=== PATIENT | female | born 1950 | race Caucasian/White ===

== ENCOUNTER → 2017-05-22 11:58 | Outpatient (CLI) | payer MEDICARE, OTHER, SELFPAY ==
--- NOTE | 2017-05-22 12:08 | XR_ITS ---
XR hand RT min 3V HISTORY: Right hand pain ITS.REASON: POLYARTHRALGIA ORDERING PHYSICIAN: Beto Gómez MD PATIENT AGE: 66 years COMPARISON: 01/01/2015 FINDINGS: There are mild osteoarthritic changes involving the DIP joints of the second, third, and fourth digits as well as the PIP of the fourth and fifth digits. These findings are slightly worse at the PIP joint of the fourth finger and the DIP joint of the fourth finger. No fracture or dislocation. No bony erosive process. There are small subcortical cystic changes of the distal aspect of the middle phalanx of the second and third digits. IMPRESSION: Osteoarthritis of the right hand which is slightly progressed at the fourth finger
--- NOTE | 2017-05-22 12:08 | XR_ITS ---
XR hand LT min 3V HISTORY: Pain ITS.REASON: POLYARTHRALGIA ORDERING PHYSICIAN: Beto Gómez MD PATIENT AGE: 66 years COMPARISON: 01/01/2015 FINDINGS: There is osteoarthritis of the DIP joints of the second through fifth finger and the PIP joint of the fourth and fifth fingers. This has progressed at the PIP joint of the fourth finger with subarticular cystic changes and further loss of the joint space. No fracture or dislocation. IMPRESSION: Osteoarthritis of the left hand which is progressed at the fourth digit
== END ==
PROVIDERS: PCP Family Medicine; Visit Provider Family Medicine
DX: M79.641 Pain in right hand (principal); M79.642 Pain in left hand
CPT/HCPCS: 73130

== ENCOUNTER → 2017-11-12 11:12 | Outpatient (CLI) | payer MEDICARE, OTHER, SELFPAY ==
--- NOTE | 2017-11-12 11:21 | XR_ITS ---
XR chest 2V HISTORY: Cough ITS.REASON: COUGH ORDERING PHYSICIAN: Yudi Benjamin PATIENT AGE: 67 years COMPARISON: None FINDINGS: The cardiomediastinal silhouette and pulmonary vascularity are within normal limits. The lungs are clear without infiltrates, suspicious nodules, or pleural effusions. No acute bony abnormalities. There is moderate degenerative change midthoracic spine. IMPRESSION: Negative chest, no acute finding
== END ==
PROVIDERS: PCP Family Medicine; Visit Provider Nurse Practitioner
DX: R05 Cough (principal)
CPT/HCPCS: 71046

== ENCOUNTER → 2017-12-14 13:56 | Outpatient (CLI) | payer MEDICARE, OTHER, SELFPAY ==
--- NOTE | 2017-12-14 14:03 | XR_ITS ---
XR ribs LT min 3V w CXR1V HISTORY: Left lateral chest pain following injury ITS.REASON: CHEST PAIN ORDERING PHYSICIAN: Beto Gómez MD PATIENT AGE: 67 years Comparison: None FINDINGS: A there is minimal cortical irregularity involving the anterolateral aspect of the left seventh rib consistent with nondisplaced fracture. Similar finding is present involving the left fourth rib laterally. No displaced rib fractures are evident. IMPRESSION: No displaced fracture left fourth and seventh ribs
--- NOTE | 2017-12-14 14:03 | XR_ITS ---
XR chest 2V HISTORY: ITS.REASON: CHEST PAIN following injury ORDERING PHYSICIAN: Beto Gómez MD PATIENT AGE: 67 years COMPARISON: 11/12/2017 FINDINGS: The cardiomediastinal silhouette and pulmonary vascularity are within normal limits. There is calcified granuloma in the left perihilar region. No evidence of pneumothorax. Lungs are clear. There is a nondisplaced left fourth and seventh rib fracture noted on the rib detail films. IMPRESSION: No acute cardiac or pulmonary findings. Nondisplaced left fourth and seventh rib fractures
== END ==
PROVIDERS: PCP Family Medicine; Visit Provider Family Medicine
DX: R07.9 Chest pain, unspecified (principal)
CPT/HCPCS: 71046; 71101

== ENCOUNTER → 2018-01-23 10:46 | Outpatient (CLI) | payer MEDICARE, OTHER, SELFPAY ==
--- NOTE | 2018-01-23 10:48 | MM_ITS ---
MM Dig screening mamm BI w/CAD ORDERING PHYSICIAN : Rupesh Reyes MD PATIENT AGE: 67 years GENDER: Female COMPARISON: November 2016, October 20152014 INDICATION: ITS.REASON: Routine Screening Mammogram TECHNIQUE: Standard CC and MLO images were obtained. R2 CAD reviewed. FINDINGS: Low-density breast bilaterally with moderate generalized fatty replacement. No dominant mass nor suspicious findings. No architectural distortion. RIGHT BREAST:No new areas of concern Scattered small lipoid cysts on right with spherical calcification LEFT BREAST:. Small area of calcification at the superior and more inferior breast and not changed significantly since last year. Follow-up in one year would be adequate, but should be emphasized and encouraged IMPRESSION: ...... No new areas of significant concern . Left breast: 2 or 3 small Small groupings of benign-appearing calcifications. Overall fairly stable, since last year. Can be followed. . Follow-up mammogram in one year should be emphasized and encouraged. . BI-RADS Category: 2 Benign Finding(s) RECOMMENDED FOLLOW-UP: 1YR 1 YEAR FOLLOW-UP (A letter has been sent to the patient regarding results of the study.)
== END ==
PROVIDERS: PCP Family Medicine; Visit Provider Nurse Practitioner Obstetrics & Gynecology
DX: Z12.31 Encounter for screening mammogram for malignant neoplasm of breast (principal)
CPT/HCPCS: 77067

== ENCOUNTER → 2018-10-17 07:36 | Outpatient (CLI) | payer MEDICARE, OTHER, SELFPAY ==
--- NOTE | 2018-10-17 07:39 | NM_ITS ---
History:SOB, Fatigue, HTN, DM, Family history, CAD, Hx of CT Procedure: Patient received a 0.4 mg of intravenous Lexiscan, resting heart rate 71 bpm, resting blood pressure 150/81, with Lexiscan maximum heart rate achieve was 103 bpm which is (85 % of the maximum predicted heart rate and blood pressure was 153/82. WIth Lexiscan patient denied any complained of chest pain. Electrocardiogram: Resting electrocardiogram showed sinus rhythm, with Lexiscan there is less than 1.5mm ST segment depression noted from the baseline EKG. The EKG portion of the Lexiscan Myoview is nondiagnostic. Cardias Stress and Resting SPECT images: Cardias Stress and Resting SPECT images were obtained using technetium 99m Myoview 31.1 mCi stress and 10.55 mCi at rest. Gated SPECT further analysis of segmental wall motion and calculation of ejection fraction also done. Cardiac stress and resting SPECT show uniform myocardial activity without segmental perfusion abnormality,, the computer derived ejection fraction is 58% with no regional wall motion abnormality, right ventricle is normal size and contractility. Conclusion: 1. The EKG portion of the Lexiscan Myoview is nondiagnostic. 2. No scintigraphic evidence of reversible ischemia seen, computer derived ejection fraction is 58% with no regional wall motion abnormality. 3. Normal Lexiscan Myoview study.
--- NOTE | 2018-10-17 08:09 | HMH.ITSHM ---
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 []PRAVASTATIN ARIPIPRAZIDE DULOXETINE GLIMEPIRIDE LISINOPRIL ATORVASTATIN METFORMIN NABUMETONE FOLIC ACID METHOTREXATE ASA NEXIUM BLACK COHOSH VITAMIN D
== END ==
PROVIDERS: PCP Family Medicine; Visit Provider Family Medicine
DX: I25.10 Atherosclerotic heart disease of native coronary artery without angina pectoris (principal); R06.09 Other forms of dyspnea; R53.83 Other fatigue
CPT/HCPCS: 78452; 93017; A9502; J2785

== ENCOUNTER → 2019-01-09 13:25 | Outpatient (CLI) | payer MEDICARE, OTHER, SELFPAY | PROVIDERS: PCP Family Medicine; Visit Provider Family Medicine | DX: G47.33 Obstructive sleep apnea (adult) (pediatric) (principal); I10 Essential (primary) hypertension; R40.0 Somnolence; R06.83 Snoring; E66.9 Obesity, unspecified | CPT/HCPCS: G0399 ==

== ENCOUNTER → 2019-01-21 12:47 | Outpatient (CLI) | payer MEDICARE, OTHER, SELFPAY ==
--- NOTE | 2019-01-21 12:48 | MR_ITS ---
PROCEDURE: MR SHOULDER RT WO CON CLINICAL INDICATION: fell dislocation of rt shoulder Right shoulder pain, recent dislocation. Unable to raise right arm. COMPARISON: XR SHOULDER RT MIN 2V from 01/12/2019 XR SHOULDER RT MIN 2V from 01/12/2019 TECHNIQUE: Routine multiplanar multi echo sequences are performed without gadolinium enhancement. FINDINGS: There is complete tear of the supraspinatus tendon with retraction of the musculotendinous fibers. There is tendinopathy/tendinosis of the infraspinatus tendon with thickening and increased T2 signal distally there is also some mild thickening of the subscapularis tendon with partial tear along the deep aspect of the subscapularis tendon distally teres minor tendon appears intact. There is a moderate-sized shoulder joint effusion. There is acromioclavicular arthropathy with subacromial stenosis. There is mild internal rotation of the humeral head. The bicipital tendon to the long head of the biceps appears displaced medially and could actually be torn at the bicipital groove. No obvious labral tear. A subchondral cyst is present in the posterior glenoid region. There is an area of decreased T1 and increased T2 signal involving the humeral head anteriorly measuring 9 x 5 mm the and may represent a subchondral cyst. There is cortical regularity involving the anterolateral aspect of the humeral head with some increase in T2 signal consistent with a Hill-Sachs lesion. There is a moderate amount of fluid in the right axilla extending both anteriorly and posterior to the subscapularis muscle superiorly. There are osteoarthritic changes of the glenohumeral joint and acromioclavicular joint IMPRESSION: 1. Complete tear of the supraspinatus tendon with retraction of the musculotendinous fibers 2. Tendinopathy/tendinosis of the infraspinatus and subscapularis tendon. Partial tear of the deep aspect of the subscapularis tendon 3. Medial displacement of the long head of the biceps tendon with possible tear of the tendon at the bicipital groove 4. Hill-Sachs deformity of the humeral head 5. Osteoarthritic changes of the acromioclavicular joint and glenohumeral joint with shoulder joint effusion and moderate amount of fluid in the axilla Dictated by: Alessio Godinez MD 01/23/2019 07:02 Electronically signed by Alessio Godinez MD in [place] 01/23/2019 07:02
== END ==
PROVIDERS: PCP Family Medicine; Visit Provider Orthopaedic Surgery
DX: S43.004A Unspecified dislocation of right shoulder joint, initial encounter (principal)
CPT/HCPCS: 73221

== ENCOUNTER → 2019-02-06 08:24 | Outpatient (CLI) | payer MEDICARE, OTHER, SELFPAY ==
--- NOTE | 2019-02-06 08:27 | MM_ITS ---
PROCEDURE: MM DIG SCREENING MAMM BI W/CAD Patient Age:68Y CLINICAL INDICATION: SCREENING 68-year-old. No hormones, no new complaints. Noncontributory family history. COMPARISON: [facility] DIG MAMM-SCREEN CHRISTOPHE from 10/27/2014 [facility] DIG MAMM-SCREEN CHRISTOPHE from 11/23/2015 [facility] DIG MAMM-SCREEN CHRISTOPHE W/CAD from 11/30/2016 [facility] MM Dig screening mamm BI w/CAD from 01/23/2018 TECHNIQUE: Standard CC and MLO images were obtained. R2 CAD reviewed. Additional axillary CC view left breast included FINDINGS: Minimal residual fibroglandular elements in both breast with no dominant or suspicious mass but no suspicious calcification. There are some benign cyst spherical calcifications right breast again noted similar to previous study.. Small stable intramammary node lateral right breast again noted IMPRESSION: Stable bilateral mammogram. No new areas of significant concern. Bilateral follow-up 1 year recommended. The BI-RAD Category: 2 Benign Finding(s) FOLLOW-UP: 1YR 1 Year Follow-up (A letter has been sent to the patient regarding results of the study.) Dictated by: Christophe Castro MD 02/06/2019 20:30 Electronically signed by Christophe Castro MD in [place] 02/06/2019 20:30
== END ==
PROVIDERS: PCP Family Medicine; Visit Provider Family Medicine
DX: Z12.31 Encounter for screening mammogram for malignant neoplasm of breast (principal)
CPT/HCPCS: 77067

== ENCOUNTER → 2019-03-03 11:30 | Outpatient (CLI) | payer MEDICARE, OTHER, SELFPAY | PROVIDERS: Visit Provider Specialist | DX: G47.19 Other hypersomnia (principal); G47.33 Obstructive sleep apnea (adult) (pediatric); R53.83 Other fatigue | CPT/HCPCS: 94762 ==

== ENCOUNTER 2019-03-28 10:00 | Outpatient (RCR) | payer MEDICARE, OTHER, SELFPAY ==
--- NOTE | 2019-02-28 08:43 | HMH.OTOPEV ---
OT Inpatient Evaluation Rehab OT Outpatient Eval Start: 02/28/19 08:06 Freq: Status: Active Protocol: Document 02/28/19 08:07 TFRY (Rec: 02/28/19 08:43 TFRY [id number]) Electronically Signed By Carolina Leos OT 02/28/19 08:07 Outpatient Therapy Subjective History Subjective History This is a 68 year old right handed female referred to occupational therapy as patient is status point a right shoulder dislocation and rotator cuff tear. Patient reports that she fell in December and dislocated her shoulder. Chief Complaint Pain,Weakness Symptom Type Ache Symptoms Relieved By Rest/Positioning Symptoms Aggravated By Physical Activity,Lifting Prior Functional Limitations None Current Functional Limitations Reaching,Lifting,Housework, Sleeping Symptom Description Activity Dependent Level of pain today (0-10) 0 Pain scale - at its best (0-10) 0 Pain scale - at its worst (0-10) 3 Shoulder/Elbow Eval Shoulder Objective Measurements Palpation Tenderness tenderness over the bicipital tendon right shoulder exam standard Shoulder Palpation Findings Tenderness Shoulder ROM Right Shoulder ROM Limitations Pain Shoulder Abduction Active Range of 70 Motion (degrees) Shoulder Abduction Passive Range of 130 Motion (degrees) Shoulder Flexion Active Range of Motion 100 (degrees) Query Text: Shoulder Flexion Passive Range of Motion 125 (degrees) Shoulder External Rotation Active Range 55 of Motion (degrees) Shoulder External Rotation Passive Range 70 of Motion (degrees) Shoulder Internal Rotation Active Range 20 of Motion (degrees) Shoulder Internal Rotation Passive Range 40 of Motion (degrees) pain with active ROM shoulder exam right standard pain with passive ROM shoulder exam right standard decreased ROM shoulder exam standard right Shoulder MMT Shoulder Abduction Strength Grade 2+ Poor+ Shoulder Extension Strength Grade 2+ Poor+ Shoulder Flexion Strength Grade 2+ Poor+ Shoulder Horizontal Abduction Strength 2+ Poor+ Grade Shoulder External Rotation Strength 2+ Poor+ Grade Shoulder Internal Rotation Strength 2+ Poor+ Grade Shoulder Strength Patient Testing Sitting Position Shoulder Special Tests
== END 2019-03-28 10:05 | disposition home or self-care (01) ==
LOC: OT 10:00
PROVIDERS: PCP Family Medicine; Visit Provider Orthopaedic Surgery
DX: M75.101 Unspecified rotator cuff tear or rupture of right shoulder, not specified as traumatic (principal)
CPT/HCPCS: 97014; 97033; 97110; 97165; G0283

== ENCOUNTER → 2019-04-14 10:09 | Outpatient (CLI) | payer MEDICARE, OTHER, SELFPAY ==
[2019-04-14 10:53] LABS: Basophils # 0.1 K/mm3 (0-0.2); Eosinophils # 0.2 K/mm3 (0.0-0.4); Eosinophils % 2.5 % (0.1-12.0); Hematocrit 43.7 % (37.0-47.0); Hemoglobin 13.5 g/dL (12.2-16.2); Lymphocytes # 1.4 K/mm3 (0.7-4.5); Lymphocytes % 16.2 % (10-50); Mean Corpuscular HGB Conc 30.9 g/dL (31.8-35.4); Mean Corpuscular Hemoglobin 25.5 pg (27.0-31.2); Mean Corpuscular Volume 82.5 fl (81-99); Mean Platelet Volume 7.6 fl (7.4-10.4); Monocytes # 0.4 K/mm3 (0.1-1.0); Monocytes % 4.5 % (1.7-9.3); Neutrophils # 6.6 K/mm3 (1.8-7.8); Neutrophils % 75.8 % (37.0-80.0); Platelet Count 338 K/mm3 (142-424); Red Cell Distribution Width 14.7 % (11.5-17.5); White Blood Count 8.7 K/mm3 (4.8-10.8)
[2019-04-14 12:12] LABS: Alanine Aminotransferase 11 U/L (12-78); Albumin Level 3.3 gm/dL (3.4-5.0); Alkaline Phosphatase 157 U/L (46-116); Anion Gap 11.1 mEq/L (5-15); Aspartate Amino Transferase 11 U/L (15-37); Bilirubin,Total 0.4 mg/dL (0.2-1.0); Blood Urea Nitrogen 10 mg/dL (7-18); Calcium 9.4 mg/dL (8.5-10.1); Carbon Dioxide 30 mmol/L (21.0-32.0); Chloride 101 mmol/L (98-107); Creatinine,Serum 0.72 mg/dL (0.55-1.02); Estimated Glomerular Filt Rate 81 ml/min (>60); GFR (African American) 98 ML/MIN (>60); Globulin 3.4 gm/dl (1.3-3.2); Glucose 136 mg/dL (74-106); Potassium 4.1 mmoL/L (3.5-5.1); Sodium 138 mmol/L (136-145); Thyroid Stimulating Hormone 2.33 uIU/ml (0.358-3.740); Total Protein,Serum 6.7 gm/dL (6.4-8.2)
[2019-04-16 18:16] LABS: Vitamin B12 1088 pg/mL (232-1245)
== END ==
PROVIDERS: Visit Provider Specialist
DX: G47.19 Other hypersomnia (principal); G47.33 Obstructive sleep apnea (adult) (pediatric); R53.83 Other fatigue
CPT/HCPCS: 36415; 80053; 82607; 84443; 85025

== ENCOUNTER → 2019-12-25 14:56 | Outpatient (CLI) | payer MEDICARE, OTHER, SELFPAY ==
[2019-12-25 21:05] LABS: Coronavirus 19 IgG Antibody Negative (Negative); Coronavirus 19 IgM Antibody Negative (Negative)
== END ==
PROVIDERS: Visit Provider Internal Medicine Gastroenterology
DX: Z01.89 Encounter for other specified special examinations (principal); Z12.11 Encounter for screening for malignant neoplasm of colon
CPT/HCPCS: 36415; 86328

== ENCOUNTER 2019-12-26 07:21 | Day surgery (SDC) | payer MEDICARE, OTHER, SELFPAY ==
[2019-12-23 10:08] VITALS: BMI 37.1
[2019-12-26 07:39] VITALS: BP 209/116; PULSE 86; RESP 18; TEMP 36.4; O2SAT 95
--- NOTE | 2019-12-26 08:40 | HMH.ANESCL ---
[facility] Anesthesia Checklist - Patient Identification Patient Identification: Arm Band, Verbal (Name & ) - Structural Data Admitted From: Home Planned Operative Procedure/s: Colonoscopy Consent for Planned Operative Procedure(s) Verified: Yes Verified Documents: Surgical Consent, History and Physical - NPO Status Verified Time NPO: 00:00 - Chart Verification Results Verified: None - Additional verifications Anesthesia Reactions: No - Airway Assessment C-Spine Mobility Assessed: Yes TMJ Mobility Assessed: Yes Dentition: Dentures-good fit (Upper) - Neurological Assessment Level of Consciousness: Awake, Alert, Appropriate, Follows Commands Hx Seizures: No Numbness or tingling in extremities: No - Anesthesia Plan Anesthesia Risk discussed: Yes Anesthesia Plan: Verified ASA Class: III Anesthesia Type: MAC [facility] History I have reviewed the patient's past medical history: Yes Medical History: Reports:: Anxiety, Depression, Diabetes Mellitus Type 2, Hyperlipidemia, Hypertension Denies:: Cancer, MRSA, Seizures *Have you ever received a pneumonia vaccine?: Yes *Have you received a flu vaccine this season?: Yes Other Medical History: Reports: Arthritis Comment:: Obesity Anesthesia experience/problems:: No prior complications Other Surgeries: Yes: Cholecystectomy, Other Amputation: No - *Social History Last grade of school completed: High school graduate Smoking Status: Former smoker Alcohol Intake: never Alcohol Intake Frequency:: other Substance Use Type: denies use *Occupational Status:: retired Housing: house Household Members: spouse *Travel in the last 8 weeks: None - Psychiatric History Pschychiatric History:: Reports:: Depression Family Hx:: Diabetes, Coronary Artery Disease, Hypertension, Stroke
--- NOTE | 2019-12-26 08:41 | P.PCN_ITS ---
[facility] Procedure Note Procedure Note:: Colonoscopy Procedure Report: Colonoscopy with cold snare polypectomy Endoscopist: Alexis Feliciano II, MD Referring physician: Beto Gómez MD Date of Procedure: December 26, 2019 Equipment: Olympus 180 variable stiffness pediatric colonoscope Sedation: MAC sedation Indication: Mrs. Feliciano is a 69-year-old female who is here for initial screening colonoscopy. She reports no abdominal pain, weight loss, change in her bowel habits or rectal bleeding. She reports no family history of colon cancer. Procedure: Prior to the procedure, a history and physical exam was performed, and patient's medications and allergies were reviewed. The risks, benefits and alternatives of the sedation and procedure were discussed with the patient. All questions were answered and informed consent was obtained. The patient was brought to the procedure room. Patient identification and proposed procedure were verified by the physician and the nurse. The patient was placed in a left lateral decubitus position and the scope was passed under direct vision. Throughout the procedure, the patient's blood pressure, pulse, and oxygen saturations were monitored continuously. The colonoscopy was accomplished without difficulty. The patient tolerated the procedure well. Findings: On digital rectal examination there was normal rectal tone. There were no external hemorrhoids. The colonoscope was introduced through the anal canal to the rectum and advanced to the cecum. The ileocecal valve and appendiceal julio cesar fice were identified. The scope was advanced a short distance into the ileum which appeared grossly normal. The scope was then withdrawn into the colon. There were 4 colon polyps (cecum x1 (4 mm) and transverse x3 (3, 4 and 5 mm)) which were all removed via cold snare polypectomy. The remainder of the cecum, ascending, transverse, descending, sigmoid and rectum were grossly normal. There were no other mucosal abnormalities identified. Upon retroflexion within the rectum there were grade 1-2 internal hemorrhoids.The preparation was excellent throughout with Thornton Preparation Score of 9. The cecal time was 13 minutes. Impression: 1. Diminutive colonic polyps x4 2. Grade 1-2 internal hemorrhoids Plan: I will follow up the polyp pathology and recommend repeat colonoscopy again in 5 years based upon the polyp histology. I would encourage bulk fiber supplementation on a long-term daily maintenance basis.
[2019-12-26 08:46] VITALS: O2SAT 97
[2019-12-26 09:03] VITALS: BP 133/61; PULSE 82; RESP 18; TEMP 36.4; O2SAT 91
[2019-12-26 09:13] VITALS: BP 109/75; PULSE 85; RESP 18; O2SAT 96
[2019-12-26 09:23] VITALS: BP 145/77; PULSE 87; RESP 18; O2SAT 95
[2019-12-26 09:46] VITALS: BP 157/93; PULSE 74; RESP 18; O2SAT 98
[2019-12-27 06:03] LABS: POC Glucose,Bedside 144 (70-110)
== END 2019-12-26 09:46 | disposition home or self-care (01) ==
PROVIDERS: PCP Family Medicine; Visit Provider Internal Medicine Gastroenterology
PROC: 0DJD8ZZ Inspection of Lower Intestinal Tract, Via Natural or Artificial Opening Endoscopic (ICD-10-PCS; CPT 45378; principal; 2019-12-26 08:30)
DX: Z12.11 Encounter for screening for malignant neoplasm of colon (principal); K63.5 Polyp of colon; K64.0 First degree hemorrhoids; E11.9 Type 2 diabetes mellitus without complications; I10 Essential (primary) hypertension; E78.5 Hyperlipidemia, unspecified; M19.90 Unspecified osteoarthritis, unspecified site; F41.9 Anxiety disorder, unspecified; F32.9 Major depressive disorder, single episode, unspecified; Z87.891 Personal history of nicotine dependence; Z88.2 Allergy status to sulfonamides; Z79.899 Other long term (current) drug therapy
CPT/HCPCS: 45385; 82962; 88305

== ENCOUNTER → 2020-02-25 08:55 | Outpatient (CLI) | payer MEDICARE, OTHER, SELFPAY ==
--- NOTE | 2020-02-25 08:55 | MM_ITS ---
PROCEDURE: MM DIG SCREENING MAMM BI W/CAD Referring Doctor: Rupesh Reyes Patient Age:69Y CLINICAL INDICATION: screening routine. No hormones. No new complaints. Noncontributory family history COMPARISON: MG [facility] DIG MAMM-SCREEN CHRISTOPHE W/CAD from 11/30/2016 [facility] MM Dig screening mamm BI w/CAD from 01/23/2018 MG MM DIG SCREENING MAMM BI W/CAD from 02/06/2019 TECHNIQUE: Standard CC and MLO images were obtained. R2 CAD reviewed. Bilateral digital breast tomosynthesis included. FINDINGS: [id number] residual fibroglandular elements most notable towards towards anterior breast bilaterally No new dominant or suspicious mass. The the Right breast: No areas of concern. Stable areas of mild asymmetry. No significant mass lesions. Stable a few benign spherical calcifications Left breast: No significant new findings . Small grouping of round benign-appearing fairly punctate calcifications again seen a towards the medial left breast centrally.. Progression since of these have been present since 2017 with significant change. Can be followed safely . IMPRESSION: Stable bilateral mammogram with no new areas of significant concern BI-RAD Category: 1 Negative FOLLOW-UP: 1YR 1 Year Follow-up (A letter has been sent to the patient regarding results of the study.) Dictated by: Christophe Castro MD 03/01/2020 13:30 Christophe Castro MD in [place] 03/01/2020 13:30
== END ==
PROVIDERS: PCP Family Medicine; Visit Provider Nurse Practitioner Obstetrics & Gynecology
DX: Z12.31 Encounter for screening mammogram for malignant neoplasm of breast (principal)
CPT/HCPCS: 77063; 77067

== ENCOUNTER → 2020-10-15 12:37 | Outpatient (CLI) | payer MEDICARE, OTHER, SELFPAY ==
--- NOTE | 2020-10-15 12:37 | US_ITS ---
PROCEDURE: US BREAST RT COMPLETE CLINICAL INDICATION: Lump in Rt Breast COMPARISON: No exams were available for comparison FINDINGS: Focal 0.3 centimeter well-defined lesion with the wall calcification is noted, corresponds to the or oil cyst noted on the right and diagnostic mammogram. Minor adjacent echogenicity is noted. No other focal suspicious masses are noted. Lymph nodes noted in the axilla measuring up to 2.5 centimeters. IMPRESSION: Probably benign finding. Please see diagnostic mammogram report of the same date for further recommendations. Dictated by: Denise Martinez 10/15/2020 14:06 Denise Martinez in [place] 10/15/2020 14:06
--- NOTE | 2020-10-15 12:37 | MM_ITS ---
PROCEDURE: MM DIG MAMM DX UNILAT RT CAD Digital Breast Tomosynthesis Included CLINICAL INDICATION: Lump in Rt Breast COMPARISON: No exams were available for comparison TECHNIQUE: Standard CC and MLO images and 3D Tomosynthesis was obtained. R2 CAD reviewed. FINDINGS: The breast is composed of scattered fibroglandular tissue. At the site of marker placement there are few oil cysts noted measuring up to 5 millimeters. Rim calcification is noted. Corresponding ultrasound confirms the presence of an oil cyst with the wall calcification. There is minor adjacent heterogeneous echogenicity is noted. No dominant masses, suspicious findings or architectural distortion is noted. IMPRESSION: Findings are consistent with an oil cyst. Minor adjacent heterogeneous echogenicity on the corresponding ultrasound, may represent minor inflammation. BI-RAD Category: 3, probably benign finding. FOLLOW-UP: Follow-up ultrasound in 6 months recommended. (A letter has been sent to the patient regarding results of the study.) Dictated by: Denise Martinez 10/15/2020 14:05 Denise Martinez in [place] 10/15/2020 14:05
== END ==
PROVIDERS: PCP Family Medicine; Visit Provider Nurse Practitioner Obstetrics & Gynecology
DX: N64.59 Other signs and symptoms in breast (principal)
CPT/HCPCS: 76641; 77061; 77065; G0279

== ENCOUNTER → 2021-01-04 10:53 | Outpatient (POV) | payer MEDICARE, OTHER, SELFPAY | PROVIDERS: Visit Provider Dermatology | DX: Z00.00 Encounter for general adult medical examination without abnormal findings (principal) ==

== ENCOUNTER 2021-02-21 14:59 | Emergency (ER) | payer MEDICARE, OTHER, SELFPAY ==
[2021-02-21 15:30] VITALS: BP 170/100; PULSE 91; RESP 16; TEMP 36.8; O2SAT 95; BMI 37.1
[2021-02-21 16:11] VITALS: BP 171/105
--- NOTE | 2021-02-21 16:17 | HMH.EDGENADL ---
ED Disposition Clinical Impression: Hypertension Qualifiers: Hypertension type: primary hypertension Qualified Code(s): I10 - Essential (primary) hypertension Disposition: Home, Self-Care Condition on Discharge: Good Additional Instructions: Take to lisinopril until you can be reevaluated by your PCP. Return the emerge department chest pain, shortness of breath, headache or visual change. Referrals: Beto Gómez MD [Primary Care Provider] - (Call for an appointment) Time of Disposition: 16:21 - Critical Care Critical Care Time: No Attestation: On 02/21/21, the high probability of a clinically significant, sudden or life threatening deterioration of the following system(s) required my full and direct attention, intervention and personal management. The time I documented below is in addition to time spent performing reported procedures but includes the following listed in this critical care notation. Medical Decision Making - Medical Records Medical records reviewed: Yes: I reviewed the patient's medical records. - Eliot Inquiry Pt receiving controlled substance: No Vital Signs: 02/21/21 15:30 Temperature 98.3 F Temperature Source Oral Pulse Rate [Left Radial] 91 H Respiratory Rate 16 Blood Pressure [Right Arm] 170/100 H Blood Pressure Mean [Right Arm] 123 Blood Pressure Source [Right Arm] Manual Cuff/ Auscultation 02 Sat by Pulse Oximetry 95 Orders (Tests/Meds): ED MEDICATIONS Discontinued Medications Generic Name Dose Route Start Last Admin Trade Name Parris PRN Reason Stop Dose Admin Clonidine HCl 0.1 mg 02/21/21 16:13 Clonidine 0.1mg Tablet PO 02/21/21 16:14 ONCE ONE Medical Decision Narrative: 70yo F presents emerged part from ENT clinic secondary to hypertension. Patient is asymptomatic and has no concerns at this time. Her blood pressure is 170/105. Technically, this is below a sepsis Borges for hypertensive urgency and does not require treatment. I did provide clonidine 0.1 mg p.o. Encourage the patient to double her lisinopril until she can be seen by her PCP for further direction. Patient knows to return emergency department shortness of breath, chest pain, headache or visual change. General Adult HPI - General Chief complaint: Recheck/Abnormal Lab/Rx Stated complaint: Bp high Dr. Cormier sent over Time Seen by Provider: 02/21/21 16:00 Mode of Arrival: Ambulatory Limitations: No Limitations Description of Symptoms (Recalled from ER Triage Doc. by RN): pt sent to ed from ent for high bp. pt states she has no symptoms and feels at her baseline. pt states she has a hx of high bp and takes medication daily. - History of Present Illness HPI narrative: 70yo F sent to the emergency department from the ENT office secondary to hypertension. Patient is asymptomatic of her high blood pressure. She denies any chest pain, shortness of breath. She reports taking her medication as directed, believes is lisinopril. She reports been on same medication for several years now. - Related Data Home Medications Medication Instructions Recorded Confirmed aspirin 81 mg tablet,delayed 81 mg PO DAILY 01/17/19 02/21/21 release cholecalciferol (vitamin D3) 100 4,000 unit PO DAILY 01/17/19 02/21/21 mcg (4,000 unit) capsule duloxetine 60 mg capsule,delayed 60 mg PO DAILY 01/17/19 02/21/21 release esomeprazole magnesium 20 mg 20 mg PO DAILY 01/17/19 02/21/21 capsule,delayed release lisinopril 20 mg tablet 20 mg PO DAILY 01/17/19 02/21/21 nabumetone 750 mg tablet 750 mg PO BID 01/17/19 02/21/21 metformin 500 mg tablet,extended 1 mg PO DAILY tab 01/21/19 02/21/21 release 24 hr terbinafine HCl 250 mg tablet 250 mg PO DAILY tab 01/21/19 02/21/21 aripiprazole 5 mg tablet 5 mg PO DAILY tab 05/03/20 02/21/21 atorvastatin 40 mg tablet 40 mg PO HS tab 05/03/20 02/21/21 Previous Rx's Medication Instructions Recorded ciprofloxacin 0.3 %-dexamethasone 2 drp [facility]
[2021-02-21 16:30] VITALS: BP 181/106
[2021-02-21 16:45] VITALS: BP 181/106; PULSE 91; RESP 18; TEMP 36.8; O2SAT 95
== END 2021-02-21 16:50 | disposition home or self-care (01) ==
PROVIDERS: Emergency Provider Family Medicine; PCP Family Medicine
DX: I16.0 Hypertensive urgency (principal); E11.9 Type 2 diabetes mellitus without complications; E78.5 Hyperlipidemia, unspecified; Z87.891 Personal history of nicotine dependence
CPT/HCPCS: 99281

== ENCOUNTER → 2021-03-04 09:52 | Outpatient (CLI) | payer MEDICARE, OTHER, SELFPAY ==
--- NOTE | 2021-03-04 09:52 | MM_ITS ---
PROCEDURE INFORMATION: Exam: MG Bilateral Screening 3D Mammography Exam date and time: 03/04/2021 9:52 AM Age: 70 years old Clinical indication: Encounter for screening mammogram for malignant neoplasm of breast; Additional info: Screening xmg TECHNIQUE: Imaging protocol: Bilateral screening tomosynthesis and 2D mammography including computer-aided detection (CAD) when performed. COMPARISON: 1. MG MM DIG MAMM DX UNILAT RT CAD 10/15/2020 1:00 PM 2. MG MM DIG SCREENING MAMM BI W/CAD 02/25/2020 9:05 AM 3. MG MM DIG SCREENING MAMM BI W/CAD 02/06/2019 8:40 AM FINDINGS: MAMMOGRAPHY: Breast composition: There are scattered areas of fibroglandular density. Mass: No suspicious masses. Architectural distortion: No suspicious distortion. Calcifications: No suspicious calcifications. Asymmetric density: None. Skin thickening: None. Axillary adenopathy: None. IMPRESSION: No mammographic evidence of malignancy. Annual screening is recommended unless otherwise clinically indicated. ASSESSMENT: BI-RADS Category 1: Negative
== END ==
PROVIDERS: PCP Family Medicine; Visit Provider Nurse Practitioner Obstetrics & Gynecology
DX: Z12.31 Encounter for screening mammogram for malignant neoplasm of breast (principal)
CPT/HCPCS: 77063; 77067

== ENCOUNTER → 2021-03-11 15:28 | Outpatient (CLI) | payer MEDICARE, OTHER, SELFPAY ==
--- NOTE | 2021-03-11 15:39 | XR_ITS ---
PROCEDURE: XR CHEST 2V CLINICAL HISTORY: SOB,ESSENTIAL HYPERTENSION COMPARISON: CR CXR2V XR chest 2V from 12/14/2017 CR [id number] XR ribs LT min 3V w CXR1V from 12/14/2017 CR XR CHEST PORTABLE from 01/12/2019 FINDINGS: The cardiomediastinal silhouette and pulmonary vascularity are within normal limits. Pleural thickening is noted along the left lateral hemithorax with blunting of the left CP angle. This this could represent loculated effusion or underlying pleural reaction/thickening. There is some minimal increased density adjacent to this at region suggesting atelectasis or infiltrate. Chest CT may provide further evaluation. There are mild degenerative changes in the thoracic spine. IMPRESSION: Left-sided pleural thickening versus loculated effusion with underlying atelectasis or infiltrate. This has developed since the previous exam. Chest CT may provide more thorough evaluation. Dictated by: Alessio Godinez MD 03/11/2021 16:20 Alessio Godinez MD in [place] 03/11/2021 16:20
--- NOTE | 2021-03-11 16:02 | ECG_ITS ---
APPROVED REPORT Exam: Resting ECG HR:72 bpm ECG Measurements Heart Rate 72 AXES NJ 176 P 34 QRSd 82 QRS 70 QT 408 T 60 QTc 446 Conclusion Normal sinus rhythm Normal ECG Electronically signed by : Manuel Melo MD 03/12/2021 06:13:19
[2021-03-11 16:25] LABS: Basophils # 0.1 K/mm3 (0-0.2); Basophils % 0.9 % (0.1-2.0); Eosinophils # 0.2 K/mm3 (0.0-0.4); Eosinophils % 2.5 % (0.1-12.0); Hematocrit 36.7 % (37.0-47.0); Hemoglobin 11.8 g/dL (12.2-16.2); Lymphocytes # 1.6 K/mm3 (0.7-4.5); Lymphocytes % 19.9 % (10-50); Mean Corpuscular HGB Conc 32.1 g/dL (31.8-35.4); Mean Corpuscular Hemoglobin 23.5 pg (27.0-31.2); Mean Corpuscular Volume 73.2 fl (81-99); Mean Platelet Volume 7.3 fl (7.4-10.4); Monocytes # 0.5 K/mm3 (0.1-1.0); Monocytes % 6.1 % (1.7-9.3); Neutrophils # 5.8 K/mm3 (1.8-7.8); Neutrophils % 70.6 % (37.0-80.0); Platelet Count 392 K/mm3 (142-424); Red Blood Count 5.01 M/mm3 (4.20-5.40); Red Cell Distribution Width 14.1 % (11.5-17.5); White Blood Count 8.2 K/mm3 (4.8-10.8)
[2021-03-11 16:35] LABS: Chloride 97 mmol/L (98-107); Potassium 3.3 mmoL/L (3.5-5.1); Sodium 138 mmol/L (136-145)
[2021-03-11 16:38] LABS: Alanine Aminotransferase 13 U/L (12-78); Albumin Level 3.8 g/dl (3.5-5.0); Albumin/Globulin Ratio 1.3 (1.1-1.8); Alkaline Phosphatase 140 U/L (38-126); Anion Gap 13.3 mEq/L (5-15); Aspartate Amino Transferase 21 U/L (14-36); Bilirubin,Total 0.3 mg/dl (0.2-1.3); Blood Urea Nitrogen 9 mg/dl (7-17); Carbon Dioxide 31 mmol/L (22.0-30.0); Estimated Glomerular Filt Rate 99 ml/min (>60); GFR (African American) 120 ML/MIN (>60); Total Protein,Serum 6.8 g/dl (6.3-8.2)
[2021-03-11 16:39] LABS: Calcium 8.7 mg/dl (8.4-10.2); Glucose 148 mg/dl (74-100)
[2021-03-11 16:48] LABS: NT Pro Brain Natriuretic Pep. 512 pg/mL (0-125)
[2021-03-11 16:51] LABS: Troponin I 0.03 ng/ml (0.00-0.034)
== END ==
PROVIDERS: Visit Provider Family Medicine
DX: R06.02 Shortness of breath (principal)
CPT/HCPCS: 36415; 71046; 80053; 83880; 84484; 85025; 93005

== ENCOUNTER → 2021-03-21 12:44 | Outpatient (CLI) | payer MEDICARE, OTHER, SELFPAY ==
--- NOTE | 2021-03-21 13:35 | CT_ITS ---
PROCEDURE: CT CHEST W CON CLINCAL INDICATION: SOB, ABN CXR COMPARISON: CR XR CHEST PORTABLE from 01/12/2019 CR XR CHEST 2V from 03/11/2021 TECHNIQUE: IV Contrast: 75ml Isovue 370 Axial images obtained with sagittal and coronal reformats. All CT scans at the facility use one or more dose reduction, viz: automated exposure control, ma/kV adjustment per patient size (including targeted exams where dose is matched to indication, i.e. head), or iterative reconstruction technique. FINDINGS: HEART AND MEDIASTINAL STRUCTURES: Coronary artery calcifications. No mediastinal or hilar mass or adenopathy. LUNGS AND PLEURAL SPACES: Small right pleural effusion with mosaic areas of attenuation in the right upper and right lower lobe which are nonspecific. There is a trace left-sided pleural effusion. There is left-sided lung volume loss with pleural thickening along the lateral hemithorax with associated atelectatic changes versus scarring in the left lower lobe and lingula. Subpleural atelectatic change/consolidation noted in the left lower lobe laterally. No obvious mass however, nodules/lesions could be obscured by the underlying atelectatic change. BONY STRUCTURES: No acute bony findings. There are degenerative changes of the thoracic spine. UPPER ABDOMEN: Unremarkable. ADDITIONAL FINDINGS: No other significant abnormalities. IMPRESSION: Left-sided lung volume loss with atelectatic change versus scarring in the lower aspect of the lingula and in the left lower lobe with subpleural atelectatic or fibrotic change on the left laterally with associated pleural thickening and trace left effusion with small right pleural effusion. The findings on the left could be secondary to post inflammatory/post infectious changes. Are there any other chest exams for comparison between 01/12/2019 and 03/21/2021 besides the 03/11/2021 chest radiograph? If so, this may help to determine the acuteness of the above-mentioned findings. If no old studies are available then, would recommend follow-up chest CT with contrast exam in 4-6 weeks to determine short term stability Dictated by: Alessio Godinez MD 03/22/2021 09:53 Alessio Godinez MD in [facility] 03/22/2021 09:53
[2021-03-21 14:17] LABS: Blood Urea Nitrogen 13 mg/dl (7-17); Estimated Glomerular Filt Rate 99 ml/min (>60); GFR (African American) 120 ML/MIN (>60)
== END ==
PROVIDERS: PCP Family Medicine; Visit Provider Family Medicine
DX: R06.02 Shortness of breath (principal); R79.89 Other specified abnormal findings of blood chemistry; R93.89 Abnormal findings on diagnostic imaging of other specified body structures
CPT/HCPCS: 36415; 71260; 82565; 84520; 93306; Q9967

== ENCOUNTER → 2021-03-25 09:44 | Outpatient (CLI) | payer MEDICARE, OTHER, SELFPAY ==
[2021-03-25 10:20] VITALS: PULSE 70; PULSE 72
== END ==
PROVIDERS: PCP Family Medicine; Visit Provider Family Medicine
DX: R06.02 Shortness of breath (principal)
CPT/HCPCS: 94060; 94640

== ENCOUNTER → 2021-04-14 09:39 | Outpatient (CLI) | payer MEDICARE, OTHER, SELFPAY ==
--- NOTE | 2021-04-14 10:15 | PC.NURSE ---
PFT and 6 Minute Walk completed without complication. Albuterol 0.083% given via HHN, per protocol, Pt tolerated tx well.
== END ==
PROVIDERS: PCP Family Medicine; Visit Provider Internal Medicine Pulmonary Disease
DX: R06.00 Dyspnea, unspecified (principal)
CPT/HCPCS: 94060; 94618; 94726; 94729

== ENCOUNTER → 2021-07-08 12:43 | Outpatient (CLI) | payer MEDICARE, OTHER, SELFPAY ==
--- NOTE | 2021-07-08 12:43 | CT_ITS ---
FINAL REPORT TECHNIQUE: Axial images were obtained through the chest without contrast. Coronal reformatted images were submitted. This study was performed with techniques to keep radiation doses as low as reasonably achievable (ALARA). Individualized dose reduction techniques using automated exposure control or adjustment of mA and/or kV according to the patient's size were employed. CLINICAL HISTORY: soa, hx smoker COMPARISON: 03/21/2021 FINDINGS: There is no mediastinal mass or adenopathy. There is moderate coronary artery calcification. The heart size is normal. The previously identified small pleural effusions have resolved. Limited images of the upper abdomen are unremarkable. There is pleural and parenchymal scarring in the left lung base. No suspicious infiltrate or nodule identified. IMPRESSION: No acute process. Reviewed, Interpreted and Dictated by Yang Brooks MD Transcribed by Chetan Monroe Authenticated by Yang Brooks MD on 07/08/2021 04:54:43 PM [facility]
== END ==
PROVIDERS: PCP Family Medicine; Visit Provider Internal Medicine Pulmonary Disease
DX: J84.9 Interstitial pulmonary disease, unspecified (principal); R06.02 Shortness of breath
CPT/HCPCS: 71250

== ENCOUNTER → 2021-07-14 14:39 | Outpatient (CLI) | payer MEDICARE, OTHER, SELFPAY ==
[2021-07-14 15:25] LABS: Basophils # 0.1 K/mm3 (0-0.2); Basophils % 1.2 % (0.1-2.0); Eosinophils # 0.2 K/mm3 (0.0-0.4); Hematocrit 39.5 % (37.0-47.0); Hemoglobin 12.7 g/dL (12.2-16.2); Lymphocytes # 1.4 K/mm3 (0.7-4.5); Lymphocytes % 18.3 % (10-50); Mean Corpuscular HGB Conc 32.1 g/dL (31.8-35.4); Mean Corpuscular Hemoglobin 24.4 pg (27.0-31.2); Mean Platelet Volume 8.2 fl (7.4-10.4); Monocytes # 0.4 K/mm3 (0.1-1.0); Monocytes % 4.8 % (1.7-9.3); Neutrophils # 5.6 K/mm3 (1.8-7.8); Neutrophils % 72.8 % (37.0-80.0); Platelet Count 328 K/mm3 (142-424); Red Blood Count 5.19 M/mm3 (4.20-5.40); Red Cell Distribution Width 16.9 % (11.5-17.5); White Blood Count 7.7 K/mm3 (4.8-10.8)
[2021-07-14 15:54] LABS: C-Reactive Protein 1.8 mg/L (0-4)
[2021-07-17 15:25] LABS: Antinuclear Antibodies, IFA Negative (.)
[2021-07-17 20:08] LABS: Anti-Cyclic Citrullinated Pept 4 units (0-19)
[2021-07-18 08:09] LABS: Cytoplasmic (C-ANCA) <1:20 titer (Neg:<1:20); Perinuclear (P-ANCA) <1:20 titer (Neg:<1:20)
[2021-07-20 09:15] LABS: Aspergillus fumigatus IgG Negative (Negative); Pigeon Serum Abs Negative (Negative)
[2021-07-23 08:22] LABS: D001-IgE D pteronyssinus <0.10 kU/L (Class 0); D002-IgE D farinae <0.10 kU/L (Class 0); E001-IgE Cat Dander <0.10 kU/L (Class 0); E005-IgE Dog Dander <0.10 kU/L (Class 0); E072-IgE Mouse Urine <0.10 kU/L (Class 0); G002-IgE Bermuda Grass <0.10 kU/L (Class 0); G006-IgE Timothy Grass <0.10 kU/L (Class 0); I006-IgE Cockroach, German <0.10 kU/L (Class 0); Immunoglobulin E, Total <2 IU/mL (6-495); M001-IgE Penicillium chrysogen <0.10 kU/L (Class 0); M002-IgE Cladosporium herbarum <0.10 kU/L (Class 0); M003-IgE Aspergillus fumigatus <0.10 kU/L (Class 0); M006-IgE Alternaria alternata <0.10 kU/L (Class 0); T001-IgE Maple/Box Elder <0.10 kU/L (Class 0); T003-IgE Common Silver Birch <0.10 kU/L (Class 0); T006-IgE Cedar, Mountain <0.10 kU/L (Class 0); T007-IgE Oak, White <0.10 kU/L (Class 0); T008-IgE Elm, American <0.10 kU/L (Class 0); T010-IgE Walnut <0.10 kU/L (Class 0); T011-IgE Maple Leaf Sycamore <0.10 kU/L (Class 0); T014-IgE Cottonwood <0.10 kU/L (Class 0); T015-IgE Ash, White <0.10 kU/L (Class 0); T022-IgE Pecan, Hickory <0.10 kU/L (Class 0); T070-IgE White Mulberry <0.10 kU/L (Class 0); W001-IgE Ragweed, Short <0.10 kU/L (Class 0); W011-IgE Thistle, Russian <0.10 kU/L (Class 0); W014-IgE Pigweed, Common <0.10 kU/L (Class 0); W018-IgE Sheep Sorrel <0.10 kU/L (Class 0)
== END ==
PROVIDERS: Visit Provider Internal Medicine Pulmonary Disease
DX: J45.909 Unspecified asthma, uncomplicated (principal); J84.9 Interstitial pulmonary disease, unspecified; R06.00 Dyspnea, unspecified
CPT/HCPCS: 36415; 82785; 85025; 86003; 86038; 86140; 86200; 86256; 86331; 86431; 86602; 86606; 86609

== ENCOUNTER → 2021-09-08 12:52 | Outpatient (CLI) | payer MEDICARE, OTHER, SELFPAY ==
--- NOTE | 2021-09-08 13:56 | PC.NURSE ---
PFT and 6 Minute Walk Test completed without incident. Pt given Albuterol 0.083% per protocol via HHN, Pt tolerated tx well.
== END ==
PROVIDERS: PCP Family Medicine; Visit Provider Internal Medicine Pulmonary Disease
DX: R06.09 Other forms of dyspnea (principal)
CPT/HCPCS: 94060; 94618; 94726; 94729

== ENCOUNTER → 2022-03-23 12:44 | Outpatient (CLI) | payer MEDICARE, OTHER, SELFPAY | PROVIDERS: PCP Family Medicine; Visit Provider Internal Medicine Pulmonary Disease | DX: R06.09 Other forms of dyspnea (principal) | CPT/HCPCS: 94060; 94618; 94727; 94729 ==

== ENCOUNTER → 2022-03-29 10:36 | Outpatient (CLI) | payer MEDICARE, OTHER, SELFPAY ==
--- NOTE | 2022-03-29 10:36 | MM_ITS ---
PROCEDURE INFORMATION: Exam: MG Bilateral Screening 3D Mammography Exam date and time: 03/29/2022 10:29 AM Age: 71 years old Clinical indication: Screening examination TECHNIQUE: Imaging protocol: Bilateral Screening tomosynthesis and 2D mammography including computer-aided detection (CAD) when performed. COMPARISON: 1. MG MM DIG SCREENING MAMM BI W/CAD 03/04/2021 9:56 AM 2. MG MM DIG MAMM DX UNILAT RT CAD 10/15/2020 1:00 PM FINDINGS: MAMMOGRAPHY: Breast composition: There are scattered areas of fibroglandular density. Mass: None. Architectural distortion: None. Calcifications: No suspicious calcifications. Asymmetric density: None. Skin thickening: None. Axillary adenopathy: None. IMPRESSION: No mammographic evidence of malignancy. Annual screening is recommended unless otherwise clinically indicated. ASSESSMENT: BI-RADS Category 1: Negative
== END ==
PROVIDERS: PCP Family Medicine; Visit Provider Nurse Practitioner Obstetrics & Gynecology
DX: Z12.31 Encounter for screening mammogram for malignant neoplasm of breast (principal)
CPT/HCPCS: 77063; 77067

== ENCOUNTER → 2022-05-12 14:23 | Outpatient (CLI) | payer MEDICARE, OTHER, SELFPAY ==
--- NOTE | 2022-05-12 14:26 | CA_ITS ---
APPROVED REPORT EXAM: Comprehensive 2D, Doppler, and color-flow Echocardiogram [employer] Supervisor: Adeline Garcia, RT(R) Ht: 5 ft 6 in Wt: 216lbs BSA: 2.07 BP: 142/73 mmHg Indications: SOA, COPD, ex smoker, HTN, DM, JG 2D Dimensions Aortic Root 1.91 cm F: 2.7 - 3.3 M-Mode Dimensions RVDd 3.38 cm (0.9-2.6) LA Diam 3.39 cm (1.9-4.0) LVDd 4.36 cm (3.5-5.7) Ao Diam 2.17 cm (2.0-3.7) LVDs 3.30 cm (3.5-5.7) IVSd 0.83 cm (0.6-1.1) PWd 0.80 cm (0.6-1.1) EF (Teich) 48.60% FS 24.30% EDV (Teich) 85.80 mL ESV (Teich) 44.10 mL LV Diastology E Decel Time 303.00 (160-240 msec) E/A Ratio 0.6 MED E' 5.40 (< 7 cm/sec) E'/MED E' Ratio 9.19 (>14) LAT E' 6.40 (<10 cm/sec) E/LAT E' Ratio 7.75 (>14) Aortic Valve LVOT Max 100.00 (70-110 cm/s) LVOT VTI 18.02 cm AoV Peak Eliseo. 132.00 (50-130 cm/s) AO Peak GR. 7.10 mmHg AO Mean GR. 3.50 (<5 mmHg) AO VTI 23.89 (18-25 cm) Mitral Valve MV E Max Eliseo. 50.00 (40-130 cm/s) MV A Velocity 84.00 (40-130 cm/s) E/A Ratio 0.59 MV Decel. Time 303.00 (160-240 ms) MV PHT 89.00 ms Left Ventricle Left atrium is mildly enlarged, left ventricle is normal size, mild concentric left ventricular hypertrophy, estimated ejection fraction 55% with no regional wall motion abnormality, grade 1 diastolic dysfunction seen without tissue Doppler evidence of raise left atrial pressure. Right Ventricle Right atrium and right ventricle are normal size and contractility. Aortic Valve Aortic valve is thickened and calcified without Doppler evidence of aortic stenosis aortic insufficiency. Mitral Valve Mitral valve is minimally thickened, there is mitral annular calcification, there is no mitral stenosis, there is mild mitral regurgitation. Tricuspid Valve Tricuspid valve grossly normal, there is mild tricuspid regurgitation, tricuspid regurgitation jet velocity is inadequate for calculation of the right ventricular systolic pressure. Pulmonic Valve Pulmonic valve is poorly visualized. Great Vessels Aortic root is normal size. Inferior vena cava is poorly visualized. Pericardium No significant pericardial effusion noted. Conclusion 1. Mildly enlarged left atrium, normal left ventricular size, mild concentric left ventricular hypertrophy, estimated ejection fraction 55% with no regional wall motion abnormality, grade 1 diastolic dysfunction seen without tissue Doppler evidence of raise left atrial pressure. 2. Thickened and calcified aortic valve without aortic stenosis aortic insufficiency. 3. Mild mitral and tricuspid regurgitation. 4. No significant pericardial effusion noted. 5. Inferior vena cava is poorly visualized. Electronically signed by : Palomo Holder MD 05/12/2022 19:53:29
== END ==
PROVIDERS: PCP Family Medicine; Visit Provider Family Medicine
DX: R06.09 Other forms of dyspnea (principal); R79.89 Other specified abnormal findings of blood chemistry
CPT/HCPCS: 93306

== ENCOUNTER 2022-06-05 19:59 | Emergency (ER) | payer MEDICARE, OTHER, SELFPAY ==
[2022-06-05 20:00] VITALS: BP 164/91; PULSE 98; RESP 23; TEMP 36.7; O2SAT 96; BMI 35.5
[2022-06-05 20:22] VITALS: BMI 35.5
[2022-06-05 20:23] VITALS: BP 184/92; PULSE 94; O2SAT 95
[2022-06-05 20:29] LABS: Microscopic, Urine URINE MICROSCOPIC (MICROSCOPIC)
[2022-06-05 20:34] LABS: Appearance,Urine CLOUDY (Clear); Blood, Urine 1+ (Negative); Color,Urine YELLOW (Yellow); Glucose,Urine (UA) Negative (Negative); Ketones,Urine TRACE (Negative); Leukocyte Esterase,Urine 2+ (Negative); Nitrate,Urine POSITIVE (Negative); Protein,Urine 2+ (Negative); Specific Gravity, Urine 1.025 (1.005-1.030); Urobilinogen,Urine 0.2 EU/dl (0.2)
[2022-06-05 20:38] LABS: Bilirubin,Urine Negative (Negative)
[2022-06-05 20:39] LABS: Basophils # 0.1 K/mm3 (0-0.2); Basophils % 0.3 % (0.1-2.0); Eosinophils # 0.1 K/mm3 (0.0-0.4); Eosinophils % 0.8 % (0.1-12.0); Hematocrit 38.9 % (37.0-47.0); Hemoglobin 12.6 g/dL (12.2-16.2); Lymphocytes # 0.6 K/mm3 (0.7-4.5); Lymphocytes % 3.5 % (10-50); Mean Corpuscular HGB Conc 32.3 g/dL (31.8-35.4); Mean Corpuscular Hemoglobin 24.7 pg (27.0-31.2); Mean Corpuscular Volume 76.4 fl (81-99); Mean Platelet Volume 8.2 fl (7.4-10.4); Monocytes # 0.8 K/mm3 (0.1-1.0); Monocytes % 4.9 % (1.7-9.3); Neutrophils # 14.9 K/mm3 (1.8-7.8); Neutrophils % 90.4 % (37.0-80.0); Platelet Count 248 K/mm3 (142-424); Red Blood Count 5.09 M/mm3 (4.20-5.40); Red Cell Distribution Width 14.7 % (11.5-17.5); White Blood Count 16.5 K/mm3 (4.8-10.8)
[2022-06-05 20:41] LABS: MANUAL DIFFERENTIAL MANUAL DIFFERENTIAL (MANUAL DIFF)
[2022-06-05 20:43] LABS: Chloride 96 mmol/L (98-107); Potassium 3.8 mmoL/L (3.5-5.1); Sodium 129 mmol/L (136-145)
[2022-06-05 20:46] LABS: Alanine Aminotransferase 14 U/L (12-78); Albumin Level 3.9 g/dl (3.5-5.0); Alkaline Phosphatase 115 U/L (38-126); Anion Gap 11.8 mEq/L (5-15); Aspartate Amino Transferase 19 U/L (14-36); Bilirubin,Direct 0.4 mg/dl (0.0-0.4); Bilirubin,Indirect 0.5 mg/dL (0.0-0.9); Bilirubin,Total 0.9 mg/dl (0.2-1.3); Bilirubin,Unconjugated 0.5 mg/dL (0.0-1.1); Blood Urea Nitrogen 13 mg/dl (7-17); Calcium 8.3 mg/dl (8.4-10.2); Carbon Dioxide 25 mmol/L (22.0-30.0); Creatinine Clearance Estimated 82 mL/min (50-200); Estimated Glomerular Filt Rate 71 ml/min (>60); GFR (African American) 86 ML/MIN (>60); Glucose 223 mg/dl (74-100); Total Protein,Serum 6.6 g/dl (6.3-8.2)
[2022-06-05 20:55] LABS: Bacteria,Urine 2+ /lpf; RBC,Urine Occasional #/hpf (0-3); Squamous Epithelial Cell,Urine Occasional #/hpf (0-5); WBC,Urine TNTC #/hpf (0-3)
[2022-06-05 21:01] VITALS: BP 178/90; PULSE 81; O2SAT 94
[2022-06-05 21:30] VITALS: BP 170/87; PULSE 77; RESP 20; O2SAT 92
--- NOTE | 2022-06-05 21:39 | HMH.EDUROGF ---
Discharge Plan Disposition Patient Disposition: Home, Self-Care Prescriptions Prescriptions: New levofloxacin 500 mg tablet 500 mg PO DAILY Qty: 7 0RF No Action metformin 500 mg tablet extended release 24 hr 1 mg PO DAILY oxybutynin chloride 5 mg tablet extended release 24hr 5 mg PO DAILY Label Comments: TAKE 1 TABLET BY MOUTH ONCE DAILY loratadine 10 mg tablet 10 mg PO DAILY Label Comments: TAKE 1 TABLET BY MOUTH ONCE DAILY amlodipine 10 mg tablet 10 mg PO DAILY Label Comments: TAKE 1 TABLET BY MOUTH ONCE DAILY FOR 90 DAYS lisinopril 40 mg tablet 40 mg PO DAILY Label Comments: TAKE 1 TABLET BY MOUTH ONCE DAILY FOR 90 DAYS carvedilol 25 mg tablet 25 mg PO ONCE potassium chloride 10 mEq capsule, extended release 10 meq PO DAILY albuterol sulfate 90 mcg/actuation HFA aerosol inhaler 1 inh INHALATION Q6H PRN (Reason: shortness of breath or wheezing) 90 Days Qty: 8.5 3RF budesonide-formoterol [Symbicort] 160-4.5 mcg/actuation HFA aerosol inhaler 2 puff INHALATION BID 90 Days Qty: 10.2 3RF gabapentin 100 mg capsule 100 mg PO HS Qty: 30 2RF gabapentin 300 mg capsule 300 mg PO DAILY MDD 300mg Qty: 30 2RF aspirin 81 mg tablet,delayed release (DR/EC) 81 mg PO DAILY duloxetine 60 mg capsule,delayed release(DR/EC) 60 mg PO DAILY nabumetone 750 mg tablet 750 mg PO BID cholecalciferol (vitamin D3) 4,000 unit capsule 4,000 unit PO DAILY esomeprazole magnesium [Nexium] 20 mg capsule,delayed release(DR/EC) 20 mg PO DAILY aripiprazole 5 mg tablet 5 mg PO DAILY atorvastatin 40 mg tablet 40 mg PO HS Label Comments: TAKE 1 TABLET BY MOUTH ONCE DAILY prednisone 20 mg tablet 40 mg PO DAILY 5 Days Qty: 10 0RF Referrals Follow up/Referrals: Beto Gómez MD [Primary Care Provider] - See instructions Clinical Impressions Clinical Impression: Urinary tract infection, SIRS (systemic inflammatory response syndrome) Instructions Patient Instructions: DI for Urinary Tract Infection (UTI) Discharge ED Provider: Gricelda (ED),Buster Arroyo Female Urogenital HPI General Chief complaint: Urogenital-Female Stated complaint: Bodyaches,headache, can't eat anything, chills Time Seen by Provider: 06/05/22 21:40 Mode of Arrival: Family Vehicle Source of Information: Patient, Spouse and Medical Record Limitations: No Limitations Description of Symptoms (Recalled from ER Triage Doc. by RN): Pt c/o chills, body aches, nausea with dry heaves , and burning with urination. She reports she saw her PCP (Dr. Gómez) last week d/t suspected UTI, however he did not prescribe ABX d/t my urine wasn't bad enough . Pt reports she has had chronic UTI's since December 2021 and will see urologist Dr. Monique on 06/19. She has taken Tylenol this afternoon, but her symtoms has presisted. History of Present Illness HPI Narrative: pt with achey and dysuria and presents for eval - hx of chronic uti MD Complaint: dysuria and UTI Onset (ago): day(s) Location: suprapubic Severity: moderate Duration: intermittent Urinary Symptoms: dysuria, urgency and frequency : No Related Data Home Medications Medication Instructions Recorded Confirmed aspirin 81 mg tablet,delayed 81 mg PO DAILY Blood thinner 01/17/19 05/17/22 release cholecalciferol (vitamin D3) 100 4,000 unit PO DAILY Supplement 01/17/19 05/17/22 mcg (4,000 unit) capsule duloxetine 60 mg capsule,delayed 60 mg PO DAILY Depression 01/17/19 05/17/22 release esomeprazole magnesium 20 mg 20 mg PO DAILY acid reflux 01/17/19 05/17/22 capsule,delayed release (Nexium) nabumetone 750 mg tablet 750 mg PO BID knee 01/17/19 05/17/22 metformin 500 mg tablet,extended 1 mg PO DAILY Diabetes 01/21/19 05/17/22 release 24 hr aripiprazole 5 mg tablet 5 mg PO DAILY 05/03/20 05/17/22 atorvastatin 40 mg tablet 40 mg PO HS 05/03/20 05/17/22 amlodip
--- NOTE | 2022-06-05 21:46 | PC.NURSE ---
rounded on patient, no needs at this time.
[2022-06-05 21:55] VITALS: BP 172/85; PULSE 78; RESP 18; TEMP 36.6; O2SAT 98
[2022-06-05 22:08] LABS: Lymphocytes % 4 % (10-50); Monocytes % 3 % (2-9); Neutrophils % 92 % (42-76); Platelet Estimate Normal; RBC Morphology Normal; Total Cells Counted 100
== END 2022-06-05 22:07 | disposition home or self-care (01) ==
PROVIDERS: Emergency Provider Emergency Medicine; PCP Family Medicine
DX: R65.10 Systemic inflammatory response syndrome (SIRS) of non-infectious origin without acute organ dysfunction (principal); N39.0 Urinary tract infection, site not specified; E11.9 Type 2 diabetes mellitus without complications; I10 Essential (primary) hypertension; J45.20 Mild intermittent asthma, uncomplicated; Z86.79 Personal history of other diseases of the circulatory system; Z87.891 Personal history of nicotine dependence; Z90.49 Acquired absence of other specified parts of digestive tract; Z83.3 Family history of diabetes mellitus; Z82.3 Family history of stroke; Z82.49 Family history of ischemic heart disease and other diseases of the circulatory system; Z20.822 Contact with and (suspected) exposure to COVID-19
CPT/HCPCS: 80048; 80076; 81001; 85007; 85025; 87086; 87088; 87186; 96361; 96374; 96375; 99284; 99285; J0131; J0696; J2405

== ENCOUNTER → 2022-07-03 11:20 | Outpatient (CLI) | payer MEDICARE, OTHER, SELFPAY | PROVIDERS: PCP Family Medicine; Visit Provider Nurse Practitioner | DX: E13.69 Other specified diabetes mellitus with other specified complication (principal); E66.9 Obesity, unspecified; R01.1 Cardiac murmur, unspecified; R06.09 Other forms of dyspnea; Z82.49 Family history of ischemic heart disease and other diseases of the circulatory system; Z79.84 Long term (current) use of oral hypoglycemic drugs; Z68.38 Body mass index [BMI] 38.0-38.9, adult | CPT/HCPCS: 78452; 93017; A9502; J2785 ==

== ENCOUNTER → 2022-10-30 10:20 | Outpatient (CLI) | payer MEDICARE, OTHER, SELFPAY ==
[2022-10-30 10:49] LABS: Basophils # 0.1 K/mm3 (0-0.2); Basophils % 0.6 % (0.1-2.0); Eosinophils # 0.2 K/mm3 (0.0-0.4); Hematocrit 35.8 % (37.0-47.0); Hemoglobin 11.4 g/dL (12.2-16.2); Lymphocytes # 1.5 K/mm3 (0.7-4.5); Lymphocytes % 19.5 % (10-50); Mean Corpuscular HGB Conc 31.9 g/dL (31.8-35.4); Mean Corpuscular Hemoglobin 26.3 pg (27.0-31.2); Mean Corpuscular Volume 82.4 fl (81-99); Mean Platelet Volume 8.4 fl (7.4-10.4); Monocytes # 0.4 K/mm3 (0.1-1.0); Monocytes % 5.3 % (1.7-9.3); Neutrophils # 5.4 K/mm3 (1.8-7.8); Neutrophils % 71.6 % (37.0-80.0); Platelet Count 318 K/mm3 (142-424); Red Blood Count 4.34 M/mm3 (4.20-5.40); Red Cell Distribution Width 14.3 % (11.5-17.5); White Blood Count 7.5 K/mm3 (4.8-10.8)
[2022-10-30 11:20] LABS: Anion Gap 14.4 mEq/L (5-15); Blood Urea Nitrogen 24 mg/dl (7-17); Calcium 9.4 mg/dl (8.4-10.2); Carbon Dioxide 23 mmol/L (22.0-30.0); Chloride 106 mmol/L (98-107); Estimated Glomerular Filt Rate 49 ml/min (>60); GFR (African American) 59 ML/MIN (>60); Glucose 123 mg/dl (74-100); Potassium 5.4 mmoL/L (3.5-5.1); Sodium 138 mmol/L (136-145)
== END ==
PROVIDERS: PCP Family Medicine; Visit Provider Internal Medicine
DX: I63.9 Cerebral infarction, unspecified (principal); E11.9 Type 2 diabetes mellitus without complications; E66.9 Obesity, unspecified; E87.1 Hypo-osmolality and hyponatremia; R01.1 Cardiac murmur, unspecified; R06.00 Dyspnea, unspecified; Z82.49 Family history of ischemic heart disease and other diseases of the circulatory system; Z68.36 Body mass index [BMI] 36.0-36.9, adult; Z79.84 Long term (current) use of oral hypoglycemic drugs
CPT/HCPCS: 36415; 80048; 85025

== ENCOUNTER → 2022-12-06 11:55 | Outpatient (CLI) | payer MEDICARE, OTHER, SELFPAY ==
[2022-12-06 12:45] LABS: Basophils # 0.1 K/mm3 (0-0.2); Basophils % 0.7 % (0.1-2.0); Eosinophils # 0.2 K/mm3 (0.0-0.4); Eosinophils % 2.2 % (0.1-12.0); Hematocrit 38.9 % (37.0-47.0); Hemoglobin 11.9 g/dL (12.2-16.2); Lymphocytes # 1.2 K/mm3 (0.7-4.5); Lymphocytes % 15.6 % (10-50); Mean Corpuscular HGB Conc 30.5 g/dL (31.8-35.4); Mean Corpuscular Hemoglobin 26.1 pg (27.0-31.2); Mean Corpuscular Volume 85.5 fl (81-99); Mean Platelet Volume 7.8 fl (7.4-10.4); Monocytes # 0.4 K/mm3 (0.1-1.0); Monocytes % 5.5 % (1.7-9.3); Neutrophils % 75.9 % (37.0-80.0); Platelet Count 355 K/mm3 (142-424); Red Blood Count 4.55 M/mm3 (4.20-5.40); Red Cell Distribution Width 13.3 % (11.5-17.5); White Blood Count 7.9 K/mm3 (4.8-10.8)
[2022-12-06 13:07] LABS: Hemoglobin A1C 6.6 % (4.0-6.0)
[2022-12-06 13:42] LABS: Chol/HDL Ratio 4.5 (1-3.5); Cholesterol 208 mg/dl (140-200); HDL Cholesterol 46 mg/dl (40-60); Magnesium 1.8 mg/dl (1.6-2.3); Triglycerides 303 mg/dl (30-150); Uric Acid 10.2 mg/dl (2.5-6.2); VLDL Cholesterol 61 mg/dL (0-40)
[2022-12-06 13:44] LABS: Creatinine,Urine Random 19 mg/dL (Not Estab.)
[2022-12-06 13:49] LABS: Microalbumin < 6.000 mg/L (0-16.7)
[2022-12-06 13:54] LABS: Direct LDL Cholesterol 93.89 mg/dL (100-129)
[2022-12-06 14:03] LABS: 25-OH Vitamin D, Total 31.5 ng/mL (30-100)
[2022-12-06 14:13] LABS: Thyroid Stimulating Hormone 2.32 uIU/mL (0.465-4.68)
[2022-12-07 13:03] LABS: Anion Gap 17.7 mEq/L (5-15); Blood Urea Nitrogen 35 mg/dl (7-17); Calcium 9.2 mg/dl (8.4-10.2); Carbon Dioxide 25 mmol/L (22.0-30.0); Chloride 100 mmol/L (98-107); Estimated Glomerular Filt Rate 37 ml/min (>60); GFR (African American) 45 ML/MIN (>60); Glucose 146 mg/dl (74-100); Potassium 5.7 mmoL/L (3.5-5.1); Sodium 137 mmol/L (136-145)
== END ==
PROVIDERS: PCP Family Medicine; Visit Provider Nurse Practitioner
DX: E11.9 Type 2 diabetes mellitus without complications (principal); E87.1 Hypo-osmolality and hyponatremia; I10 Essential (primary) hypertension; E78.2 Mixed hyperlipidemia; N18.31 Chronic kidney disease, stage 3a; E55.9 Vitamin D deficiency, unspecified; Z79.84 Long term (current) use of oral hypoglycemic drugs
CPT/HCPCS: 36415; 80048; 80061; 82043; 82306; 82570; 83036; 83735; 84443; 84550; 85025

== ENCOUNTER 2022-12-15 07:17 | Day surgery (SDC) | payer MEDICARE, OTHER, SELFPAY ==
[2022-12-15] VITALS (12 sets, daily range): BP systolic 92–134; BP diastolic 52–78; PULSE 53–65; RESP 16–20; O2SAT 91–100; BMI 36.6
--- NOTE | 2022-12-15 07:10 | IR_ITS ---
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 COMPLICATIONS NONE Estimated Blood Loss: LESS THAN 10 ML TECHNIQUE One percent lidocaine was used to anesthetize the right anterior aspect of the right wrist. The right radial artery was accessed via the Seldinger technique and a 6 Icelandic hydrophilic sheath was placed in the right radial artery. Following this one percent lidocaine was used to anesthetize the right anterior aspect of the right neck. The right internal jugular vein was accessed via the Seldinger technique and a 7 Icelandic sheath was placed in the right internal jugular vein. Following this an arterial cocktail was administered using 5000U heparin, 2.5 mg verapamil, 1mg Lidocaine and 800mcg nitroglycerin into the right radial sheath. A papa catheter was used to perform left heart catheterization left ventriculogram and selective coronary angiography while a Fork-Vitaliy catheter was used to perform right heart catheterization. Saturations were obtained in the pulmonary artery and right atrium. At the end of the procedure the arterial sheath was removed good hemostasis was achieved using Traclet band. Patient was transferred to the postop holding area in stable condition for venous sheath removal. ANGIOGRAPHIC RESULTS The left main artery Normal The left anterior descending artery Has proximal and mid vessel 20 to 30% stenoses The circumflex artery Dominant with diffuse 10% stenoses The right coronary artery Nondominant with proximal 50% stenosis and a mid vessel 50% stenosis The COY ventriculogram reveals Normal 65% The left ventricular end-diastolic pressure 14 mmHg Right atrial pressure 12 mmHg Pulmonary pressure 30/20 mmHg Pulmonary occlusion pressure 12 mmHg Right atrial saturation 71% Pulmonary artery saturation 69% Femoral artery saturation 96% Hemoglobin 11.6 Cardiac output 6.3 L/min Cardiac index 3.0 IMPRESSION Mild to moderate disease in the LAD system Moderate proximal and mid vessel disease in a nondominant right coronary artery Normal ejection fraction Mildly elevated pulmonary pressures Normal ejection fraction PLAN 1. Medical management for the coronary artery disease 2. Aggressive risk factor modification 3. Consider sleep study 4. Weight loss Electronically signed by : Chetan Silveira MD 12/15/2022 09:54:55
[2022-12-15 08:00] LABS: Basophils # 0.1 K/mm3 (0-0.2); Basophils % 0.7 % (0.1-2.0); Eosinophils # 0.3 K/mm3 (0.0-0.4); Eosinophils % 3.7 % (0.1-12.0); Hematocrit 37.6 % (37.0-47.0); Hemoglobin 11.6 g/dL (12.2-16.2); Lymphocytes # 1.7 K/mm3 (0.7-4.5); Lymphocytes % 20.4 % (10-50); Mean Corpuscular HGB Conc 30.7 g/dL (31.8-35.4); Mean Corpuscular Volume 84.7 fl (81-99); Mean Platelet Volume 7.6 fl (7.4-10.4); Monocytes # 0.5 K/mm3 (0.1-1.0); Neutrophils # 5.9 K/mm3 (1.8-7.8); Neutrophils % 69.2 % (37.0-80.0); Platelet Count 330 K/mm3 (142-424); Red Blood Count 4.44 M/mm3 (4.20-5.40); Red Cell Distribution Width 13.2 % (11.5-17.5); White Blood Count 8.5 K/mm3 (4.8-10.8)
[2022-12-15 08:07] LABS: Anion Gap 11.7 mEq/L (5-15); Blood Urea Nitrogen 23 mg/dl (7-17); Calcium 9.2 mg/dl (8.4-10.2); Carbon Dioxide 27 mmol/L (22.0-30.0); Chloride 105 mmol/L (98-107); Creatinine Clearance Estimated 84 mL/min (50-200); Estimated Glomerular Filt Rate 55 ml/min (>60); GFR (African American) 66 ML/MIN (>60); Glucose 124 mg/dl (74-100); Potassium 4.7 mmoL/L (3.5-5.1); Sodium 139 mmol/L (136-145)
[2022-12-15 14:56] LABS: CATHL Arterial O2 SAT 69.5 % (90-100); CATHL Venous O2 SAT 71.1 % (75-80)
== END 2022-12-15 12:57 | disposition home or self-care (01) ==
PROVIDERS: PCP Family Medicine; Visit Provider Internal Medicine
DX: I10 Essential (primary) hypertension (principal); I20.8 Other forms of angina pectoris; R01.1 Cardiac murmur, unspecified; R06.09 Other forms of dyspnea; I27.20 Pulmonary hypertension, unspecified; Z79.899 Other long term (current) drug therapy; Z79.84 Long term (current) use of oral hypoglycemic drugs; Z82.49 Family history of ischemic heart disease and other diseases of the circulatory system; E87.1 Hypo-osmolality and hyponatremia; E11.9 Type 2 diabetes mellitus without complications
CPT/HCPCS: 80048; 82810; 85025; 93460; 99152; C1725; C1760; C1769; C1894; J1644; Q9967

== ENCOUNTER → 2022-12-21 12:28 | Outpatient (CLI) | payer MEDICARE, OTHER, SELFPAY ==
[2022-12-21 13:54] LABS: Anion Gap 13.4 mEq/L (5-15); Blood Urea Nitrogen 16 mg/dl (7-17); Carbon Dioxide 26 mmol/L (22.0-30.0); Chloride 103 mmol/L (98-107); Estimated Glomerular Filt Rate 40 ml/min (>60); GFR (African American) 49 ML/MIN (>60); Glucose 99 mg/dl (74-100); Potassium 4.4 mmoL/L (3.5-5.1); Sodium 138 mmol/L (136-145)
== END ==
PROVIDERS: Nurse Practitioner Family; PCP Family Medicine; Visit Provider Obstetrics & Gynecology
DX: E87.5 Hyperkalemia (principal)
CPT/HCPCS: 36415; 80048

== ENCOUNTER → 2023-01-08 12:39 | Outpatient (CLI) | payer MEDICARE, OTHER, SELFPAY ==
[2023-01-08 13:21] LABS: Reticulocyte % (Auto) 1.8 % (0.9-3.2)
[2023-01-08 13:54] LABS: Anion Gap 12.3 mEq/L (5-15); Blood Urea Nitrogen 17 mg/dl (7-17); Calcium 8.8 mg/dl (8.4-10.2); Carbon Dioxide 28 mmol/L (22.0-30.0); Chloride 100 mmol/L (98-107); Estimated Glomerular Filt Rate 55 ml/min (>60); GFR (African American) 66 ML/MIN (>60); Glucose 192 mg/dl (74-100); Potassium 4.3 mmoL/L (3.5-5.1); Sodium 136 mmol/L (136-145)
[2023-01-08 14:15] LABS: Ferritin 10.7 ng/ml (11.1-264)
[2023-01-08 14:46] LABS: Vitamin B12 782 pg/mL (239-931)
[2023-01-08 14:52] LABS: Folate > 20.00 ng/mL
[2023-01-08 15:20] LABS: Iron 45 ug/dL (37-170)
[2023-01-08 15:29] LABS: Total Iron Binding Capacity 344 ug/dL (265-497)
== END ==
PROVIDERS: PCP Family Medicine; Visit Provider Physician Assistant
DX: E11.9 Type 2 diabetes mellitus without complications (principal); E66.9 Obesity, unspecified; E87.1 Hypo-osmolality and hyponatremia; R01.1 Cardiac murmur, unspecified; Z82.49 Family history of ischemic heart disease and other diseases of the circulatory system; R06.09 Other forms of dyspnea; Z68.37 Body mass index [BMI] 37.0-37.9, adult; Z79.84 Long term (current) use of oral hypoglycemic drugs; Z87.891 Personal history of nicotine dependence; I11.9 Hypertensive heart disease without heart failure
CPT/HCPCS: 36415; 80048; 82607; 82728; 82746; 83540; 83550; 85044

== ENCOUNTER 2023-05-29 10:34 | Observation (INO) | payer MEDICARE, OTHER, SELFPAY ==
[2023-05-29 11:15] VITALS: BP 145/85; RESP 18; TEMP 36.7; O2SAT 96
[2023-05-29 11:17] VITALS: BMI 36.0
[2023-05-29 11:36] LABS: Coronavirus 19, PCR Not Detected (NotDetected); Influenza A, PCR Not Detected (NotDetected); Influenza B, PCR Not Detected (NotDetected)
[2023-05-29 11:45] LABS: Basophils % 0.4 % (0.1-2.0); Eosinophils # 0.1 K/mm3 (0.0-0.4); Hemoglobin 14.3 g/dL (12.2-16.2); Mean Corpuscular HGB Conc 31.8 g/dL (31.8-35.4); Mean Corpuscular Hemoglobin 26.6 pg (27.0-31.2); Mean Corpuscular Volume 83.6 fl (81-99); Mean Platelet Volume 8.5 fl (7.4-10.4); Monocytes # 0.5 K/mm3 (0.1-1.0); Monocytes % 6.1 % (1.7-9.3); Neutrophils # 7.3 K/mm3 (1.8-7.8); Neutrophils % 81.4 % (37.0-80.0); Platelet Count 375 K/mm3 (142-424); Red Blood Count 5.39 M/mm3 (4.20-5.40); Red Cell Distribution Width 13.8 % (11.5-17.5); White Blood Count 8.9 K/mm3 (4.8-10.8)
[2023-05-29 11:52] LABS: Alanine Aminotransferase 22 U/L (12-78); Albumin Level 4.6 g/dl (3.5-5.0); Albumin/Globulin Ratio 1.4 (1.1-1.8); Alkaline Phosphatase 165 U/L (38-126); Anion Gap 19.3 mEq/L (5-15); Aspartate Amino Transferase 31 U/L (14-36); Bilirubin,Total 0.6 mg/dl (0.2-1.3); Blood Urea Nitrogen 28 mg/dl (7-17); Calcium 9.4 mg/dl (8.4-10.2); Carbon Dioxide 17 mmol/L (22.0-30.0); Chloride 100 mmol/L (98-107); Creatinine Clearance Estimated 63 mL/min (50-200); Estimated Glomerular Filt Rate 40 ml/min (>60); GFR (African American) 49 ML/MIN (>60); Globulin 3.2 g/dL (1.3-3.2); Glucose 251 mg/dl (74-100); Magnesium 1.6 mg/dl (1.6-2.3); Potassium 3.3 mmoL/L (3.5-5.1); Sodium 133 mmol/L (136-145); Total Protein,Serum 7.8 g/dl (6.3-8.2)
[2023-05-29] MEDS: 0.9 % SODIUM CHLORIDE 1000ML 1,780 ML 890 ML IV (12:46)
[2023-05-29 13:00] VITALS: O2SAT 97
--- NOTE | 2023-05-29 13:17 | P.HP_ITS ---
History of Present Illness *Admission Date: 05/29/23 *Reason for visit:: Nausea, vomiting, and rate *History of present illness: Ms. Gary is a 72-year-old female with history of coronary artery disease, hypertension, type 2 diabetes, depression, arthritis, and diastolic dysfunction who presented to the [facility] today with 4-day history of nausea, vomiting, and diarrhea. She is states that she has been unable to retain fluids or her food or medicines for the past 3 days. She is very weak. With evaluation in the office CBC showed a white blood cell count of 10,100 with hemoglobin of 13.7 hematocrit of 41.9. Patient is also had a cough and some shortness of breath along with her weakness. She has had a diminished urinary output. She denies any hematemesis or hematochezia. After evaluation she was felt dehydrated and was admitted to [facility] for further evaluation and treatment And symptom control. [facility] Disclaimer: The information contained in this section may have been updated after the patient was seen, as this information can be updated by other users. Medical History Abnormal computerized axial tomography of chest Allergic rhinitis Atypical angina CAD in [place] artery Diabetes mellitus Dyspnea on exertion History of seasonal allergies Hyperlipidemia Hypertension Hyponatremia ILD (interstitial lung disease) Mild persistent asthma Seasonal allergic rhinitis Stopped smoking with greater than 30 pack year history Wheezing Surgical History History of back surgery History of colonoscopy Hx of cholecystectomy Family History Other Coronary artery disease Diabetes Hypertension Stroke Social History Smoking Status: Former smoker second hand exposure: No alcohol intake: never substance use type: denies use current occupational status: retired Travel in the last 8 weeks: Inside the [place] household members: spouse housing: house caffeine: No Review of Systems Constitutional Constitutional: Reports body ache(s), Reports fatigue, Reports fever(s), Reports lethargy and Reports weakness Eyes Eyes: Denies change in vision ENT Ears, Nose, Mouth, and Throat: Reports disequilibrium, Reports dizziness, Reports dry mouth, Denies otalgia, Reports post nasal drip and Denies sore throat *Cardiovascular Cardiovascular: Denies chest pain, Reports dyspnea, Reports dyspnea on exertion and Denies edema *Respiratory Respiratory: Denies chest congestion, Reports dyspnea, Reports dyspnea on exertion and Denies hemoptysis *Gastrointestinal Gastrointestinal: Reports abdominal pain, Reports change in stool character, Denies constipation, Reports dyspepsia, Denies hematemesis, Denies hematochezia, Reports loose stools, Reports nausea and Reports vomiting *Genitourinary Genitourinary: Reports difficulty voiding (decreased UOP) *Musculoskeletal Musculoskeletal: Reports muscle weakness *Neurologic Neurologic: Reports disequilibrium, Reports dizziness and Reports weakness Endocrine Endocrine: Reports fatigue Meds Home Medications and Allergies Home Medications Medication Instructions Recorded Confirmed Type aspirin 81 mg tablet,delayed 81 mg PO DAILY 01/17/19 05/29/23 History release cholecalciferol (vitamin D3) 100 4,000 unit PO DAILY Supplement 01/17/19 05/29/23 History mcg (4,000 unit) capsule duloxetine 60 mg capsule,delayed 60 mg PO BID 01/17/19 05/29/23 History release esomeprazole magnesium 20 mg 20 mg PO DAILY 01/17/19 05/29/23 History capsule,delayed release (Nexium) nabumetone 750 mg tablet 1,500 mg PO DAILY 01/17/19 05/29/23 History aripiprazole 5 mg tablet 5 mg PO HS 05/03/20 05/29/23 History atorvastatin 40 mg tablet 40 mg PO HS 05/03/20 05/29/23 History amlodipine 10 mg tablet 10 mg PO DAILY 05/04/21 05/29/23 History carvedilol 25 mg tablet 25 mg PO BID 05/04/21 05/29/23 History oxybutynin chloride 5 mg 5 mg PO DAILY 05/04/21 05/29/23 History tablet,extended release 24 hr magnesium oxide 400 mg (241.3 mg 800 mg PO DAILY 11/02/22 05/29/23 History magnesium) tablet furosemide 40 mg tablet (Lasix) 40 mg PO BID 12/25/22 05/29/23 History ferrous sulfate 325 mg (65 mg 325 mg PO BID 05/29/23 05/29/23 History iron) tablet (FeroSul) lisinopril 40 mg tablet 40 mg PO DAILY 05/29/23 05/29/23 History metformin 500 mg tablet,extended 1,000 mg PO BID 05/29/23 05/29/23 History release 24 hr methenamine hippurate 1 gram tablet 0.5 g PO BID 05/29/23 05/29/23 History New Prescriptions to Start Prescriptions: Allergies Allergy/AdvReac Type Severity Reaction Status Date / Time No Known Allergies Allergy Verified 05/29/23 13:40 Exam Data for Last 24 hours Vital signs and Labs for Last 24 Hours: Temp Resp BP Pulse Ox O2 Del Method 98.1 F 18 145/85 H 96 Room Air 05/29/23 11:15 05/29/23 11:15 05/29/23 11:15 05/29/23 11:15 05/29/23 11:15 Laboratory Results - last 24 hr 05/29/23 11:15: WBC 8.9, RBC 5.39, Hgb 14.3, Hct 45.0, MCV 83.6, MCH 26.6 L, MCHC 31.8, RDW 13.8, Plt Count 375, MPV 8.5, Neut % (Auto) 81.4 H, Lymph % (Auto) 11.0, [place] % (Auto) 6.1, Eos % (Auto) 1.0, Baso % (Auto) 0.4, Neut # (Auto) 7.3, Lymph # (Auto) 1.0, [place] # (Auto) 0.5, Eos # (Auto) 0.1, Baso # (Auto) 0.0, Sodium 133 L, Potassium 3.3 L, Chloride 100, Carbon Dioxide 17 L, Anion Gap 19.3 H, BUN 28 H, Creatinine 1.30 H, Estimated Creat Clear 63, Estimated GFR 40 L, Est GFR ( Amer) 49 L, Glucose 251 H, Lactate 2.0, Calcium 9.4, Magnesium 1.6, Total Bilirubin 0.6, AST 31, ALT 22, Alkaline Phosphatase 165 H, Total Protein 7.8, Albumin 4.6, Globulin 3.2, Albumin/Globulin Ratio 1.4 05/29/23 11:27: SARS-CoV-2 (PCR) Not detected, Influenza A Untype (PCR) Not detected, Influenza Type B (PCR) Not detected I & O for Last 24 hours: Intake & Output 05/27/23 05/28/23 05/29/23 05/30/23 11:59 11:59 11:59 11:59 Intake Total 373 / 373 Balance 373 / 373 Weight 223 lb 1 oz Constitutional Constitutional: no acute distress, obese and cooperative Comments: appears not to feel well *Routine HEENT Exam Head: Present normocephalic and atraumatic Eye: Present PERRL; Absent conjunctival icterus, scleral injection or conjun ctivae pink ENT: Present mucous membranes dry, oropharynx clear and nares patent *Routine Neck Exam Neck: Present supple; Absent carotid bruit, lymphadenopathy or thyromegaly Routine Chest/Breast/Axilla Exam Chest wall: Absent tenderness *Routine Respiratory Exam Respiratory: Present CTA bilaterally (A&P) *Routine Cardiovascular Exam Cardiovascular: Present RRR (120/min) and tachycardia *Routine Abdominal Exam Abdominal: Present soft, normoactive bowel sounds and tenderness (mild mid abdomen); Absent guarding or firm *Routine Rectal Exam Rectal:: deferred *Routine Genitalia Exam Genitalia:: deferred *Routine Extremities Exam Extremities: Absent edema or calf tenderness *Routine Neurological Exam Neurological: Present alert and oriented X3 Assessment and Plan *Assessment and plan (1) Gastroenteritis: Status: Acute Category: Medical Code(s): K52.9 - Noninfective gastroenteritis and colitis, unspecified (2) Dehydration: Status: Acute Category: Medical Code(s): E86.0 - Dehydration (3) Hypokalemia: Status: Acute Category: Medical Code(s): E87.6 - Hypokalemia (4) Obesity (BMI 35.0-39.9 without comorbidity): Status: Acute Category: Medical Code(s): E66.9 - Obesity, unspecified (5) Diastolic dysfunction: Status: Acute Category: Medical Code(s): I51.89 - Other ill-defined heart diseases (6) Diabetes mellitus: Status: Acute Qualifiers: Diabetes mellitus complication status: with other specified complication Diabetes mellitus long-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: unspecified long-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 status Diabetes mellitus type: other specified (including JOSE) Qualified Code(s): E13.69 - Other specified diabetes mellitus with other specified complication Category: Medical Code(s): E11.9 - Type 2 diabetes mellitus without complications (7) Renal insufficiency: Status: Acute Category: Medical Code(s): N28.9 - Disorder of kidney and ureter, unspecified (8) Coronary artery disease: Status: Acute Category: Medical Code(s): I25.10 - Atherosclerotic heart disease of [place] coronary artery without angina pectoris Plan IV fluids; GI rest; antiemetics; monitor labs, will obtain a diarrhea panel and do flu and COVID swabs. Dr. Gómez entry - Saw patient, agree with above note. Will start Rocephin today.
--- NOTE | 2023-05-29 13:24 | HMH.PHAINT1 ---
Pharmacy Intervention Comments: Confirmed home medication list using external fill history and referred to provider note from recent office visit.
[2023-05-29] MEDS: CEFTRIAXONE SODIUM 1 GM in 0.9 % SODIUM CHLORIDE 50 ML IV (13:28)
[2023-05-29 15:45] VITALS: BP 142/70; PULSE 89; RESP 18; TEMP 36.7; O2SAT 97
[2023-05-29] MEDS: 0.9% NaCl w/40mEq KCL 1,000 ML 100 ML IV (16:11)
--- NOTE | 2023-05-29 17:33 | PC.NURSE ---
pt has had some intermittent nausea since arriving to floor, abdomen is tender, did tolerate some of her clear liquid diet for dinner, pt educated on need for stool sample and verbalizes understanding,
[2023-05-29 17:59] LABS: Adenovirus F 40/41, stool Not Detected (NotDetected); Clostridium Difficile A/B, PCR Not Detected (NotDetected); Cryptosporidium Not Detected (NotDetected); Cyclospora Cayetanesis Not Detected (NotDetected); Entamoeba histolytica Not Detected (NotDetected); Enteroaggregative E coli Not Detected (NotDetected); Enteropathogenic E coli Not Detected (NotDetected); Enterotoxigenic E coli Not Detected (NotDetected); Giardia lamblia Not Detected (NotDetected); Norovirus Not Detected (NotDetected); Plesimonas Shigalloides, PCR Not Detected (NotDetected); Rotavirus A Not Detected (NotDetected); Salmonella, PCR Not Detected (NotDetected); Sapovirus Not Detected (NotDetected); Shiga-like toxin E coli Not Detected (NotDetected); Shigella Enterovasive E coli Not Detected (NotDetected); Vibrio Cholerae Not Detected (NotDetected); Vibrio, PCR Not Detected (NotDetected); Yersinia Entercolitica, PCR Not Detected (NotDetected)
[2023-05-29] MEDS: ONDANSETRON 4MG/2ML VIAL 4 MG IV (18:15)
[2023-05-29 20:00] VITALS: BP 145/86; PULSE 86; RESP 20; TEMP 36.4; O2SAT 96
[2023-05-29] MEDS: ARIPiprazole 10MG TABLET 5 MG PO (20:32)
[2023-05-29] MEDS: ATORVASTATIN 40MG TABLET 40 MG PO (20:32)
[2023-05-29] MEDS: PANTOPRAZOLE 40MG TABLET 40 MG PO (20:32)
[2023-05-30] VITALS: BP 137/77; PULSE 86; RESP 18; TEMP 36.7; O2SAT 98
[2023-05-30] MEDS: 0.9% NaCl w/40mEq KCL 1,000 ML 100 ML IV (02:42)
[2023-05-30 03:52] VITALS: BP 129/75; PULSE 85; RESP 18; TEMP 36.6; O2SAT 92; BMI 35.8
[2023-05-30 06:59] LABS: Eosinophils # 0.1 K/mm3 (0.0-0.4); Mean Platelet Volume 7.8 fl (7.4-10.4); Red Cell Distribution Width 13.7 % (11.5-17.5)
[2023-05-30 07:03] LABS: Anion Gap 12.8 mEq/L (5-15); Blood Urea Nitrogen 18 mg/dl (7-17); Calcium 8.4 mg/dl (8.4-10.2); Carbon Dioxide 18 mmol/L (22.0-30.0); Chloride 110 mmol/L (98-107); Creatinine Clearance Estimated 75 mL/min (50-200); Estimated Glomerular Filt Rate 49 ml/min (>60); GFR (African American) 59 ML/MIN (>60); Glucose 129 mg/dl (74-100); Potassium 3.8 mmoL/L (3.5-5.1); Sodium 137 mmol/L (136-145)
[2023-05-30 07:04] LABS: Basophils # 0.1 K/mm3 (0-0.2); Basophils % 1.2 % (0.1-2.0); Eosinophils % 2.6 % (0.1-12.0); Hematocrit 38.8 % (37.0-47.0); Hemoglobin 11.9 g/dL (12.2-16.2); Lymphocytes # 1.2 K/mm3 (0.7-4.5); Lymphocytes % 25.6 % (10-50); Mean Corpuscular HGB Conc 30.6 g/dL (31.8-35.4); Mean Corpuscular Hemoglobin 26.1 pg (27.0-31.2); Mean Corpuscular Volume 85.4 fl (81-99); Monocytes # 0.4 K/mm3 (0.1-1.0); Monocytes % 8.7 % (1.7-9.3); Neutrophils # 2.9 K/mm3 (1.8-7.8); Neutrophils % 61.9 % (37.0-80.0); Platelet Count 294 K/mm3 (142-424); Red Blood Count 4.54 M/mm3 (4.20-5.40); White Blood Count 4.7 K/mm3 (4.8-10.8)
[2023-05-30 08:00] VITALS: BP 116/51; PULSE 69; RESP 18; TEMP 36.6; O2SAT 94
--- NOTE | 2023-05-30 08:27 | P.PN_ITS ---
Subjective *Date: 05/30/23 *Time: 08:27 Interval history: Patient feels much better this morning, still having some diarrhea. Medical Exam Vital signs and Labs for Last 24 Hours: Vital Signs Temp Pulse Resp BP Pulse Ox O2 Del Method 05/30/23 08:25 Room Air 05/30/23 08:00 97.8 F 69 18 116/51 L 94 L Room Air 05/30/23 06:51 Room Air 05/30/23 05:00 Room Air 05/30/23 03:52 97.9 F 85 18 129/75 92 L Room Air 05/30/23 03:00 Room Air 05/30/23 01:00 Room Air 05/30/23 00:00 98.0 F 86 18 137/77 98 Room Air 05/29/23 23:00 Room Air 05/29/23 21:00 Room Air 05/29/23 20:00 96 Room Air 05/29/23 20:00 97.6 F 86 20 145/86 H 96 Room Air 05/29/23 18:47 Room Air 05/29/23 17:00 Room Air 05/29/23 15:45 98.0 F 89 18 142/70 H 97 Room Air 05/29/23 15:00 Room Air 05/29/23 13:00 97 Room Air 05/29/23 13:00 Room Air 05/29/23 11:15 98.1 F 18 145/85 H 96 Room Air 05/29/23 11:00 Room Air Intake and Output 05/29/23 05/30/23 05/30/23 23:59 07:59 15:59 Intake Total 585 / 1058 100 / 340 240 / 340 Output Total 0 / 0 0 / 0 Balance 585 / 1058 100 / 340 240 / 340 Intake: Intake, Oral Amount 585 / 1058 100 / 340 240 / 340 Output: Output, Urine Amount 0 / 0 0 / 0 Other: Number of Unmeasured Voids 1 1 Number of Bowel Movements 1 Weight 223 lb 0.984 oz Patient Weight 05/30/23 23:59 Weight 223 lb 0.984 oz Laboratory Results - last 24 hr 05/29/23 11:15: WBC 8.9, RBC 5.39, Hgb 14.3, Hct 45.0, MCV 83.6, MCH 26.6 L, MCHC 31.8, RDW 13.8, Plt Count 375, MPV 8.5, Neut % (Auto) 81.4 H, Lymph % (Auto) 11.0, [place] % (Auto) 6.1, Eos % (Auto) 1.0, Baso % (Auto) 0.4, Neut # (Auto) 7.3, Lymph # (Auto) 1.0, [place] # (Auto) 0.5, Eos # (Auto) 0.1, Baso # (Auto) 0.0, Sodium 133 L, Potassium 3.3 L, Chloride 100, Carbon Dioxide 17 L, Anion Gap 19.3 H, BUN 28 H, Creatinine 1.30 H, Estimated Creat Clear 63, Estimated GFR 40 L, Est GFR ( Amer) 49 L, Glucose 251 H, Lactate 2.0, Calcium 9.4, Magnesium 1.6, Total Bilirubin 0.6, AST 31, ALT 22, Alkaline Phosphatase 165 H, Total Protein 7.8, Albumin 4.6, Globulin 3.2, Albumin/Globulin Ratio 1.4 05/29/23 11:27: SARS-CoV-2 (PCR) Not detected, Influenza A Untype (PCR) Not detected, Influenza Type B (PCR) Not detected 05/30/23 05:38: WBC 4.7 L D, RBC 4.54, Hgb 11.9 L D, Hct 38.8, MCV 85.4, MCH 26.1 L, MCHC 30.6 L, RDW 13.7, Plt Count 294, MPV 7.8, Neut % (Auto) 61.9, Lymph % (Auto) 25.6, [place] % (Auto) 8.7, Eos % (Auto) 2.6, Baso % (Auto) 1.2, Neut # (Auto) 2.9, Lymph # (Auto) 1.2, [place] # (Auto) 0.4, Eos # (Auto) 0.1, Baso # (Auto) 0.1, Sodium 137, Potassium 3.8, Chloride 110 H, Carbon Dioxide 18 L, Anion Gap 12.8, BUN 18 H D, Creatinine 1.10 H, Estimated Creat Clear 75, Estimated GFR 49 L, Est GFR ( Amer) 59 D, Glucose 129 H D, Calcium 8.4 I & O for Labs for Last 24 Hours: Intake & Output 05/27/23 05/28/23 05/29/23 05/30/23 23:59 23:59 23:59 23:59 Intake Total 958 / 1058 340 / 340 Output Total 0 / 0 0 / 0 Balance 958 / 1058 340 / 340 Weight 223 lb 1 oz 223 lb 0.984 oz Constitutional: Present no acute distress Respiratory: Present normal respiratory effort Cardiac: Present Reg Rate and Rhythm GI: Present normal bowel sounds; Absent tenderness Extremities: Present normal inspection and full ROM Skin: Present intact; Absent erythema Neuro: Present Grossly Intact and moves all extremities Assessment and Plan *Assessment and plan (1) Gastroenteritis: Status: Acute Category: Medical Code(s): K52.9 - Noninfective gastroenteritis and colitis, unspecified (2) Dehydration: Status: Acute Category: Medical Code(s): E86.0 - Dehydration (3) Hypokalemia: Status: Acute Category: Medical Code(s): E87.6 - Hypokalemia (4) Obesity (BMI 35.0-39.9 without comorbidity): Status: Acute Category: Medical Code(s): E66.9 - Obesity, unspecified (5) Diastolic dysfunction: Status: Acute Category: Medical Code(s): I51.89 - Other ill-defined heart diseases (6) Diabetes mellitus: Status: Acute Qualifiers: Diabetes mellitus type: other specified (including JOSE) 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 [facility] insulin use status Diabetes mellitus complication status: with other specified complication Qualified Code(s): E13.69 - Other specified diabetes mellitus with other specified complication Category: Medical Code(s): E11.9 - Type 2 diabetes mellitus without complications (7) Renal insufficiency: Status: Acute Category: Medical Code(s): N28.9 - Disorder of kidney and ureter, unspecified (8) Coronary artery disease: Status: Acute Category: Medical Code(s): I25.10 - Atherosclerotic heart disease of [place] coronary artery without angina pectoris Plan OK to discharge home today, see orders.
[2023-06-01 11:08] LABS: Astrovirus Detected (NotDetected)
[2023-06-01 11:09] LABS: Campylobacter Detected (NotDetected)
--- NOTE | 2023-06-01 11:47 | CARE MANAGER ---
Attempted to contact patient x2 related to hospital discharge. Left voicemail. TAINA Philippe
--- NOTE | 2023-06-07 12:53 | EXP.DC.SUM ---
General Admission date:: 05/29/23 Discharge date: 05/30/23 HPI HPI HPI: Ms. Feliciano is a 72-year-old female with history of coronary artery disease, hypertension, type 2 diabetes, depression, arthritis, and diastolic dysfunction who presented to the office of [facility] today with 4-day history of nausea, vomiting, and diarrhea. She is states that she has been unable to retain fluids or her food or medicines for the past 3 days. She is very weak. With evaluation in the office CBC showed a white blood cell count of 10,100 with hemoglobin of 13.7 hematocrit of 41.9. Patient is also had a cough and some shortness of breath along with her weakness. She has had a diminished urinary output. She denies any hematemesis or hematochezia. After evaluation she was felt dehydrated and was admitted to [facility] for further evaluation and treatment And symptom control. Hospital Course Hospital Course Hospital Course: The patient was started on IV fluids, antiemetics, GI rest, and Rocephin. Flu and COVID tests were negative. By 05/30/2023, she was feeling much better but was still having some diarrhea. Her renal function had improved. It was felt she could be discharged home. Exam Data for Last 24 hours Vital signs and Labs for Last 24 Hours: Temp Pulse Resp BP Pulse Ox O2 Del Method 97.8 F 69 18 116/51 L 94 L Room Air 05/30/23 08:00 05/30/23 08:00 05/30/23 08:00 05/30/23 08:00 05/30/23 08:00 05/30/23 08:25 Narrative: Constitutional Constitutional: no acute distress, obese and cooperative Comments: appears not to feel well *Routine HEENT Exam Head: Present normocephalic and atraumatic Eye: Present PERRL; Absent conjunctival icterus, scleral injection or conjunctivae pink ENT: Present mucous membranes dry, oropharynx clear and nares patent *Routine Neck Exam Neck: Present supple; Absent carotid bruit, lymphadenopathy or thyromegaly Routine Chest/Breast/Axilla Exam Chest wall: Absent tenderness *Routine Respiratory Exam Respiratory: Present CTA bilaterally (A&P) *Routine Cardiovascular Exam Cardiovascular: Present RRR (120/min) and tachycardia *Routine Abdominal Exam Abdominal: Present soft, normoactive bowel sounds and tenderness (mild mid abdomen); Absent guarding or firm *Routine Rectal Exam Rectal:: deferred *Routine Genitalia Exam Genitalia:: deferred *Routine Extremities Exam Extremities: Absent edema or calf tenderness *Routine Neurological Exam Neurological: Present alert and oriented X3 DS: Diagnosis Discharge Diagnosis (1) Gastroenteritis: Status: Acute Code(s): K52.9 - Noninfective gastroenteritis and colitis, unspecified (2) Dehydration: Status: Acute Code(s): E86.0 - Dehydration (3) Hypokalemia: Status: Acute Code(s): E87.6 - Hypokalemia (4) Obesity (BMI 35.0-39.9 without comorbidity): Status: Acute Code(s): E66.9 - Obesity, unspecified (5) Diastolic dysfunction: Status: Acute Code(s): I51.89 - Other ill-defined heart diseases (6) Diabetes mellitus: Status: Acute Code(s): E11.9 - Type 2 diabetes mellitus without complications Qualifiers: Diabetes mellitus type: other specified (including JOSE) Diabetes mellitus 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-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: 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 Diabetes mellitus complication status: with other specified complication Qualified Code(s): E13.69 - Other specified diabetes mellitus with other specified complication (7) Renal insufficiency: Status: Acute Code(s): N28.9 - Disorder of kidney and ureter, unspecified (8) Coronary artery disease: Status: Acute Code(s): I25.10 - Atherosclerotic heart disease of [place] coronary artery without angina pectoris Meds Home Medications and Allergies Home Medications Medication Instructions Recorded Confirmed Type aspirin 81 mg tablet,delayed 81 mg PO DAILY 01/17/19 05/29/23 History release cholecalciferol (vitamin D3) 100 4,000 unit PO DAILY Supplement 01/17/19 05/29/23 History mcg (4,000 unit) capsule duloxetine 60 mg capsule,delayed 60 mg PO BID 01/17/19 05/29/23 History release esomeprazole magnesium 20 mg 20 mg PO DAILY 01/17/19 05/29/23 History capsule,delayed release (Nexium) nabumetone 750 mg tablet 1,500 mg PO DAILY 01/17/19 05/29/23 History aripiprazole 5 mg tablet 5 mg PO HS 05/03/20 05/29/23 History atorvastatin 40 mg tablet 40 mg PO HS 05/03/20 05/29/23 History amlodipine 10 mg tablet 10 mg PO DAILY 05/04/21 05/29/23 History carvedilol 25 mg tablet 25 mg PO BID 05/04/21 05/29/23 History oxybutynin chloride 5 mg 5 mg PO DAILY 05/04/21 05/29/23 History tablet,extended release 24 hr magnesium oxide 400 mg (241.3 mg 800 mg PO DAILY 11/02/22 05/29/23 History magnesium) tablet furosemide 40 mg tablet (Lasix) 40 mg PO BID 12/25/22 05/29/23 History ferrous sulfate 325 mg (65 mg 325 mg PO BID 05/29/23 05/29/23 History iron) tablet (FeroSul) lisinopril 40 mg tablet 40 mg PO DAILY 05/29/23 05/29/23 History metformin 500 mg tablet,extended 1,000 mg PO BID 05/29/23 05/29/23 History release 24 hr methenamine hippurate 1 gram tablet 0.5 g PO BID 05/29/23 05/29/23 History ondansetron HCl 4 mg tablet 4 mg PO Q8H PRN nausea and 05/30/23 Rx vomiting #14 tabs New Prescriptions to Start Prescriptions: ondansetron HCl Beto Gómez Allergies Allergy/AdvReac Type Severity Reaction Status Date / Time No Known Allergies Allergy Verified 05/29/23 13:40 Discharge Plan Disposition Patient Disposition: Home, Self-Care Condition: Good Follow up Plan Follow up with: Beto Gómez MD [Primary Care Provider] - 06/06/23 9:30 am Prescriptions/Medication Reconciliation: New ondansetron HCl 4 mg tablet 4 mg PO Q8H PRN (Reason: nausea and vomiting) Qty: 14 0RF Continued oxybutynin chloride 5 mg tablet extended release 24hr 5 mg PO DAILY Patient Comments: TAKE 1 TABLET BY MOUTH ONCE DAILY amlodipine 10 mg tablet 10 mg PO DAILY Patient Comments: TAKE 1 TABLET BY MOUTH ONCE DAILY FOR 90 DAYS carvedilol 25 mg tablet 25 mg PO BID magnesium oxide 400 mg (241.3 mg magnesium) tablet 800 mg PO DAILY Patient Comments: TAKE 2 TABLETS BY MOUTH ONCE DAILY aspirin 81 mg tablet,delayed release (DR/EC) 81 mg PO DAILY duloxetine 60 mg capsule,delayed release(DR/EC) 60 mg PO BID nabumetone 750 mg tablet 1,500 mg PO DAILY cholecalciferol (vitamin D3) 4,000 unit capsule 4,000 unit PO DAILY esomeprazole magnesium [Nexium] 20 mg capsule,delayed release(DR/EC) 20 mg PO DAILY aripiprazole 5 mg tablet 5 mg PO HS atorvastatin 40 mg tablet 40 mg PO HS Patient Comments: TAKE 1 TABLET BY MOUTH ONCE DAILY methenamine hippurate 1 gram tablet 0.5 g PO BID Patient Comments: TAKE 1/2 (ONE-HALF) TABLET BY MOUTH TWICE DAILY ferrous sulfate [FeroSul] 325 mg (65 mg iron) tablet 325 mg PO BID Patient Comments: TAKE 1 TABLET BY MOUTH TWICE DAILY lisinopril 40 mg tablet 40 mg PO DAILY Patient Comments: TAKE 1 TABLET BY MOUTH ONCE DAILY metformin 500 mg tablet extended release 24 hr 1,000 mg PO BID Patient Comments: TAKE 2 TABLETS BY MOUTH TWICE DAILY FOR 90 DAYS Held furosemide [Lasix] 40 mg tablet 40 mg PO BID Hold Instructions: Resume on 06/04/23. Problem Reconciliation Problems Reviewed?: Yes Patient Discharge Instructions ACTIVITY: Continue current activity DIET: advance to your usual diet Providers Primary Care Provider: Beto Gómez Admit Provider: Beto Gómez Attending Provider: Beto Gómez
== END 2023-05-30 09:28 | disposition home or self-care (01) ==
PROVIDERS: Admitting Provider Family Medicine; PCP Family Medicine; Visit Provider Family Medicine
DX: K52.9 Noninfective gastroenteritis and colitis, unspecified (principal); E86.0 Dehydration; E87.6 Hypokalemia; E66.9 Obesity, unspecified; N28.9 Disorder of kidney and ureter, unspecified; I25.10 Atherosclerotic heart disease of native coronary artery without angina pectoris; R11.2 Nausea with vomiting, unspecified; I10 Essential (primary) hypertension; F32.A Depression, unspecified; M19.90 Unspecified osteoarthritis, unspecified site; Z68.35 Body mass index [BMI] 35.0-35.9, adult; E11.29 Type 2 diabetes mellitus with other diabetic kidney complication
CPT/HCPCS: G0379; 36415; 80048; 80053; 83605; 83735; 85025; 87040; 87506; 87636; G0378; J0696; J2405

== ENCOUNTER 2023-10-24 14:27 | Outpatient (CLI) | payer MEDICARE, OTHER, SELFPAY ==
--- NOTE | 2023-10-24 14:28 | CT_ITS ---
FINAL REPORT TECHNIQUE: Axial images were obtained through the chest without contrast. Axial images through the chest were performed by computed tomography. This study was performed with techniques to keep radiation doses as low as reasonably achievable, (ALARA). Individualized dose reduction techniques using automated exposure control or adjustment of mA and/or kV according to the patient's size were employed. CLINICAL HISTORY: .nodule and soa COMPARISON: 07/08/2021 FINDINGS: CT CHEST: Images were obtained in high-resolution, prone inspiration, and supine expiration. The heart size is normal. Moderate coronary artery calcifications are present. There is no pericardial or pleural effusion. High-resolution images reveal mild bronchial ectasia in the lower lobes bilaterally consistent with mild changes of bronchiectasis. Prone inspiration films reveal persistent pleural and parenchymal densities in the lung bases, particularly the left, consistent with scarring. Supine expiration films do not reveal any air trapping. No suspicious infiltrate or nodule identified. IMPRESSION: Minimal changes of bronchiectasis are present. Left base scar remains present and is stable since the prior exam. Reviewed, Interpreted and Dictated by Yang Brooks MD Transcribed by Mila Izaguirre Authenticated and [facility]
[2023-10-24 15:10] VITALS: PULSE 77; PULSE 80
[2023-10-24] MEDS: ALBUTEROL 0.083% 2.5 MG/3 ML NEB IH (15:10)
== END 2023-10-24 23:59 | disposition home or self-care (01) ==
LOC: RAD 14:28
PROVIDERS: PCP Family Medicine; Visit Provider Internal Medicine Pulmonary Disease
DX: J84.9 Interstitial pulmonary disease, unspecified (principal); R06.09 Other forms of dyspnea; Z87.891 Personal history of nicotine dependence; Z79.899 Other long term (current) drug therapy; E11.9 Type 2 diabetes mellitus without complications
CPT/HCPCS: 71250; 94060; 94640; 94726; 94729; J7613

== ENCOUNTER 2024-04-29 12:59 | Outpatient (CLI) | payer MEDICARE, SELFPAY ==
--- NOTE | 2024-04-29 13:00 | MM_ITS ---
PROCEDURE INFORMATION: Exam: MG Bilateral Screening 3D Mammography Exam date and time: 04/29/2024 1:35 PM Age: 73 years old Clinical indication: Screening examination. TECHNIQUE: Imaging protocol: Bilateral Screening tomosynthesis and 2D mammography including computer-aided detection (CAD) when performed. COMPARISON: 1. MG MM DIG SCREENING MAMM BI W/CAD 03/29/2022 10:29 AM 2. MG MM DIG SCREENING MAMM BI W/CAD 03/04/2021 9:56 AM FINDINGS: MAMMOGRAPHY: Breast composition: There are scattered areas of fibroglandular density. Mass: None. Architectural distortion: None. Calcifications: No suspicious calcifications. Asymmetric density: None. Skin thickening: None. Axillary adenopathy: None. IMPRESSION: No mammographic evidence of malignancy. Annual screening is recommended unless otherwise clinically indicated. ASSESSMENT: BI-RADS Category 1: Negative.
== END 2024-04-29 23:59 | disposition home or self-care (01) ==
LOC: RAD 13:00
PROVIDERS: PCP Family Medicine; Visit Provider Nurse Practitioner Obstetrics & Gynecology
DX: Z12.31 Encounter for screening mammogram for malignant neoplasm of breast (principal)
CPT/HCPCS: 77063; 77067

== ENCOUNTER 2024-08-28 14:04 | Outpatient (CLI) | payer MEDICARE, SELFPAY ==
[2024-08-28 15:56] LABS: Anion Gap 13.4 mEq/L (5-15); Blood Urea Nitrogen 26 mg/dl (7-17); Calcium 9.3 mg/dl (8.4-10.2); Carbon Dioxide 25 mmol/L (22.0-30.0); Chloride 101 mmol/L (98-107); Estimated Glomerular Filt Rate 32 ml/min (>60); GFR (African American) 38 ML/MIN (>60); Glucose 133 mg/dl (74-100); Potassium 4.4 mmoL/L (3.5-5.1); Sodium 135 mmol/L (136-145)
== END 2024-08-28 23:59 | disposition home or self-care (01) ==
LOC: LAB 14:05
PROVIDERS: PCP Family Medicine; Visit Provider Family Medicine
DX: N18.31 Chronic kidney disease, stage 3a (principal)
CPT/HCPCS: 36415; 80048

== ENCOUNTER 2024-11-05 09:25 | Outpatient (CLI) | payer MEDICARE, SELFPAY ==
--- OUTSIDE RECORDS SUMMARY | 2024-09-18 06:15 | XMS_ITS ---
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 Name Role Phone Beto Gómez Primary Care Provider Allergies Allergen (clinical drug ingredient) Drug/Non Drug Allergy documented on EMR Reaction Allergy Type Onset Date Status Sulfamethoxazole stomach upset Drug Allergy Active REASON FOR VISIT check up Medications Medication SIG (Take, Route, Frequency, Duration) Notes Start Date End Date Status ARIPiprazole 5 MG Take 1 tablet by errol once daily; Duration: 90 Active DULoxetine HCl 60 MG Take 2 capsules by mouth once daily; Duration: 90 Active Atorvastatin Calcium 40 MG 1 tablet Oral ly Once a day; Duration: 90 days Active Jardiance 10 MG 1 tablet Orally Once a day 025 Active Magnesium Oxide 400 MG 2 tab(s) orally o nce a day; Duration: 90 days Active oxyBUTYnin Chloride ER 10 MG 1 tab(s) orally once a day; Duration: 90 days 12/30/2021 Active Loratadine 10 MG 1 tab(s) orally once a day; Duration: 30 Active Miconazole Nitrate 2 % 1 application Ext ernally Twice a day 03/13/2024 Active Slow Iron 160 (50 Fe) MG 1 tablet Orally once daily 12/15/2023 Active Nabumetone 750 MG 2 tablet Orally Once a day; Duration: 90 days Active SM Vitamin D3 100 MCG (4000 UT) 1 cap(s) orally once a day 12/24/2013 A ctive NexIUM 20 MG 1 cap(s) orally once a day 08/06/2014 Active CareTouch CPAP & BIPAP Hose 1 DIRECTED Active Aspirin 81 MG 1 tab(s) orally once a day Active Vitamin B12 1000 MCG 1 tablet Orally Once a day Active Ozempic (1 MG/DOSE) 4 MG/3ML 1 mg Subcutaneous once a week; Duration: 28 days Active Folate 400 MCG 1 tablet Orally Once a day Active Metamucil Smooth Texture 28.3 % as directed Orally 09/18/2024 Active MiraLax 17 GM/SCOOP 1 scoop mixed with 8 ounces of fluid Orally Once a day; Duration: 30 day(s) 09/18/2024 Active Problems Problem Type SNOMED Code ICD Code Onset Dates Problem Status W/U Status Risk Notes Problem Constipation (33542205) Constipation, unspecified constipation type (K59.00) Active confirmed Vital Signs Weight 196 lbs 09/18/2024 Blood pressure systolic 128 mm Hg 09/19/19 25 Blood pressure diastolic 76 mm Hg 025 Heart Rate 80 /min 09/18/2024 Height 65.50 in 09/18/2024 BMI 32.12 kg/m2 09/18/2024 Encounters Encounter Location Date Provider Diagnosis [facility] [address] [facility] [address] [place], [place] [id number] 09/18/2024 Beto Gómez Syncope, unspecified syncope type R55 ; Essential hypertension I10 and Constipation, unspecified constipation type K59.00 Assessments Encounter Date Diagnosis (ICD Code) Assessment Notes Treatment Notes Treatment Clinical Notes Section Notes 09/18/2024 Syncope, unspecified syncope type (ICD-10 - R55) Blood pressure journal 09/18/2024 Essential hypertension (ICD-10 - I10) 09/18/2024 Constipation, unspecified constipation type (ICD-10 - K59.00) Plan Of Treatment Medication Medication Name Sig Start Date Stop Date Notes Furosemide 40 MG 1 tablet Orally Once a day Metamucil Smooth Texture 28. 3 % as directed Orally 09/18/2024 MiraLax 17 GM/SCOOP 1 scoop mixed with 8 ounces of fluid Orally Once a day; Duration: 30 day(s) 09/18/2024 Treatment Notes Assessment Notes Syncope, unspecified syncope type Blood pressure journal Next Appt Details Follow Up: 2 Weeks, Reason: Provider Name:Beto morrison, 05/04/2025 09:45:00 AM, [address], [address], [place], [phone], Progress Notes * Cuate REEVESDOB:1950 (74 yo F)Acc No.[id number]:09/18/2024 Progress Notes Patient: Cuate LAZARO Provider: Alisha Gómez M.D. :1950 A ge:74 Y S ex:Female Date:09/18/2024 Address:[address] [place] [address] S, [place], [id number] Subjective: * Chief Complaints: * 1 . Check up. * HPI: E ndocrinology: 74 year old female presents with c/o Recent Blood Sugars P t here to f/u on DM 2. N eurology: c/o syncope P t states she passed out Sunday morning . Pt states she got out of bed to go to the bathroom and hit the ground as soon as her feet hit the floor. Pt states she did hit the back of her head but is not currently having any pain. * ROS: D ERMATOLOGY: no R aziza. n o H ariel. G ASTROENTEROLOGY: no N ausea. n o V omiting. U ROLOGY: no D ifficulty urinating. n o B lood in urine. * Medical History: C oronary Artery Disease, Myocardial Infarction, 2004, Hypertension, Type 2 diabetes,2017, Depression, Arthritis, Cardiac Murmur, Diastolic dysfunction. * Surgical History: C holecystectomy 2004, Cardiac Catheterization 2003, Back 04/21/2015. * Hospitalization/Major Diagno stic Procedure: F all- [facility] ER 01/12/2019. * Family History: F ather: , arthritis. M other: , heart trouble, stroke. S iblings: Brothers- hypertensionSister- fibromyalgia. 2 brother(s) , 1 sister(s) . . * Social History: C URRENT TOBACCO USE S moking Status: Patient does NOT smoke, Former Smoker: Yes. C affeine: yes, frequency: 3-4 cups a day. Exercise: no. Marital Status: . Alcohol: No. Sexually active: yes. * Medications: T aking Folate 400 MCG Tablet 1 tablet Orally Once a day , Taking Vitamin B12 1000 MCG Tablet 1 tablet Orally Once a day , Taking Furosemide 40 MG Tablet 1 tablet Orally Once a day , Taking NexIUM 20 MG Capsule Delayed Release 1 cap(s) orally once a day , Taking SM Vitamin D3 100 MCG (4000 UT) Capsule 1 cap(s) orally once a day , Taking Aspirin 81 MG Tablet Delayed Release 1 tab(s) orally once a day , Taking CareTouch CPAP & BIPAP Hose MACHINE AND SUPPLIES 1 DIRECTED , Taking Loratadine 10 MG Tablet 1 tab(s) orally once a day , Taking oxyBUTYnin Chloride ER 10 MG Tablet Extended Release 24 Hour 1 tab(s) orally once a day , Taking Slow Iron 160 (50 Fe) MG Tablet Extended Release 1 tablet Orally once daily , Taking Miconazole Nitrate 2 % Powder 1 application Externally Twice a day , Taking Nabumetone 750 MG Tablet 2 tablet Orally Once a day , Taking Magnesium Oxide 400 MG Tablet 2 tab(s) orally once a day , Taking ARIPiprazole 5 MG Tablet Take 1 tablet by mouth once daily , Taking Atorvastatin Calcium 40 MG Tablet 1 tablet Orally Once a day , Taking DULoxetine HCl 60 MG Capsule Delayed Release Particles Take 2 capsules by mouth once daily , Taking Jardiance 10 MG Tablet 1 tablet Orally Once a day , Taking Ozempic (1 MG/DOSE) 4 MG/3ML Solution Pen-injector 1 mg Subcutaneous once a week , Medication List reviewed and reconciled with the patient * Allergies: S ulfamethoxazole: stomach upset - Side Effects. Objective: * Vitals: W t: 196, Temp: 98.0, BP: 128/76, HR: 80, Nurse: nasim, Ht: 65.50, BMI:32.12. * Examination: G eneral Examination: General Appearance: N AD. H eart: R SR. L ungs:?clear to auscultation. A bdomen: b owel sounds present, soft and nontender. E xtremities: n o leg edema. Assessment: * Assessment: 1. S yncope, unspecified syncope type - R55 (Primary) 2 . E ssential hypertension - I10 3 . C onstipation, unspecified constipation type - K59.00 ? Plan: * Treatment: 2. E ssential hypertension Stop Furosemide Tablet, 40 MG, 1 tablet, Orally, Once a day. 3. C onstipation, unspecified constipation type Start MiraLax Powder, 17 GM/SCOOP, 1 scoop mixed with 8 ounces of fluid, Orally, Once a day, 30 day(s); S tart Metamucil Smooth Texture Powder, 28.3 %, as directed, Orally. * Procedure Codes: G 2211 Complex e/m visit add on, 1036F TOBACCO NON-USER, G8950 PREHTN/HTN BP DOC INDCD F/U DOC, G8752 MOST RECENT SYSTOLIC BP < 140MM HG, G8754 MOST RECENT DIASTOLIC BP < 90MM HG * Follow Up: 2 Weeks * Images: Billing Information: * Visit Code: 20406 Office Visit, Est Pt., Level 3. * Procedure Codes: G2211 Complex e/m visit add on. 1036F TOBACCO NON-USER. G8950 PREHTN/HTN BP DOC INDCD F/U DOC. G8752 MOST RECENT SYSTOLIC BP < 140MM HG. G8754 MOST RECENT DIASTOLIC BP < 90MM HG. * Electronic signature of Calli Gómez MD on 11/05/2024 at 09:30 AM EDT Sign off status: Pending * Provider: Alisha Gómez M.D. Date: 0 09/18/2024 Generated for Viktoriya vang/Shanda/eTransmitting on: 0 11/05/2024 09:30 AM EDT History and Physical Notes * HPI (History of Present Illness) Category Sub-Category Detail Notes Category Not es Neurology syncope Pt states she p assed out Sunday morning . Pt states she got out of bed to go to the bathroom and hit the ground as soon as her feet hit the floor. Pt states she did hit the back of her head but is not currently having any pain Endocrinology Recent Blood Sugars Pt here to f/u on DM 2 Examination Category Sub-Category Detail Notes Category Not es General Examination Heart: RSR Lungs: clear to auscultatio n Abdomen: bowel sounds present , soft and nontender Extremities: no leg edema General Appearance: NAD
--- OUTSIDE RECORDS SUMMARY | 2024-10-02 05:45 | XMS_ITS ---
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 [employer] Name Role Phone Beto Gómez Primary Care Provider [phone] Allergies Allergen (clinical drug ingredient) Drug/Non Drug Allergy documented on EMR Reaction Allergy Type Onset Date Status Sulfamethoxazole stomach upset Drug Allergy Active Results Component Value Reference Range Notes P-Basic Metabolic Panel (BMP ) Reviewed date:10/03/2024 10:42:28 AM Interpretation:creat 1.36, eGFR 41 Performing Lab: Notes/Report: Test performed by [facility] [address] [place] [address] , [address], [place] [address] Yovanny Morgan MD, Spoilage Worker CLIA: [id number] Sodium 136 135-145 mmol/L Potassium 4.0 3.5-5.3 mmol/L Chloride 101 97-108 mmol/L CO2 23 20-32 mmol/L Glucose 92 65-99 mg/dL BUN 13 8-23 mg/dL Creatinine 1.36 0.50-1.00 mg/dL Calcium 9.0 8.6-10.4 mg/dL eGFR by Creatinine 41 >59 mL/min/1.73m2 REASON FOR VISIT 2 week f/u Medications Medication SIG (Take, Route, Frequency, Duration) Notes Start Date End Date Status Ozempic (1 MG/DOSE) 4 MG/3ML 1 mg Subcutaneous once a week; Duration: 28 days Active MiraLax 17 GM/SCOOP 1 scoop mixed with 8 ounces of fluid Orally Once a day; Duration: 30 day(s) 09/18/2024 Active Jardiance 10 MG 1 tablet Orally Once a day 025 Active Atorvastatin Calcium 40 MG 1 tablet Oral ly Once a day; Duration: 90 days Active DULoxetine HCl 60 MG Take 2 capsules by mouth once daily; Duration: 90 Active Miconazole Nitrate 2 % 1 application Ext ernally Twice a day 03/13/2024 Active Nabumetone 750 MG 2 tablet Orally Once a day; Duration: 90 days Active Slow Iron 160 (50 Fe) MG 1 tablet Orally once daily 12/15/2023 Active Magnesium Oxide 400 MG 2 tab(s) orally o nce a day; Duration: 90 days Active ARIPiprazole 5 MG Take 1 tablet by errol th once daily; Duration: 90 Active oxyBUTYnin Chloride ER 10 MG 1 tab(s) orally once a day; Duration: 90 days 12/30/2021 Active CareTouch CPAP & BIPAP Hose 1 DIRECTED Active Loratadine 10 MG 1 tab(s) orally once a day; Duration: 30 Active SM Vitamin D3 100 MCG (4000 UT) 1 cap(s) orally once a day 12/24/2013 A ctive Aspirin 81 MG 1 tab(s) orally once a day Active Metamucil Smooth Texture 28.3 % as directed Orally 09/18/2024 Active Vitamin B12 1000 MCG 1 tablet Orally Once a day Active NexIUM 20 MG 1 cap(s) orally once a day 08/06/2014 Active Folate 400 MCG 1 tablet Orally Once a day Active Vital Signs Weight 197 lbs 10/02/2024 Blood pressure systolic 118 mm Hg 10/03/19 25 Blood pressure diastolic 70 mm Hg 025 Heart Rate 72 /min 10/02/2024 Height 65.50 in 10/02/2024 BMI 32.28 kg/m2 10/02/2024 Encounters Encounter Location Date Provider Diagnosis [facility] [address] [place] [id number] 10/02/2024 Beto Beason Syncope, unspecified syncope type R55 ; Dizziness R42 ; Stage 3b chronic kidney disease N18.32 and Constipation, unspecified constipation type K59.00 Assessments Encounter Date Diagnosis (ICD Code) Assessment Notes Treatment Notes Treatment Clinical Notes Section Notes 10/02/2024 Syncope, unspecified syncope type (ICD-10 - R55) Resolved 10/02/2024 Dizziness (ICD-10 - R42) Meclizine OTC as needed 10/02/2024 Stage 3b chronic kidney disease (ICD-10 - N18.32) 10/02/2024 Constipation, unspecified constipation type (ICD-10 - K59.00) Much improved Plan Of Treatment Treatment Notes Assessment Notes Syncope, unspecified syncope type Resolv ed Dizziness Meclizine OTC as nee ded Constipation, unspecified constipation t ype Much improved Next Appt Details Follow Up: as scheduled,and prn, Reason: Provider Name:Beto Wilson ry, 05/04/2025 09:45:00 AM, [address], [address], [place], [place], [phone], Progress Notes * Cuate REEVESDOB:1950 (74 yo F)Acc No.[id number]:10/02/2024 Patient: Jolly LAZAROgy Provider: Alisha Gómez M.D. :1950 A ge:74 Y S ex:Female Date:10/02/2024 Address:[address] [place] [address] [address], [id number] Subjective: * Chief Complaints: * 1 . 2 week f/u. * HPI: N eurology: 74 year old female presents with c/o syncope P t here for 2 week f/u. Pt states she has been checking bp at home and it has been pretty good . She has felt much better since stopping Lasix. * ROS: D ERMATOLOGY: no R aziza. [...] * Hospitalization/Major Diagno stic Procedure: F all- [facility] ER 01/12/2019. * Family History: F ather: [...] 1 mg Subcutaneous once a week , Taking MiraLax 17 GM/SCOOP Powder 1 scoop mixed with 8 ounces of fluid Orally Once a day , Taking Metamucil Smooth Texture 28.3 % Powder as directed Orally , Medication List reviewed and reconciled with the patient * Allergies: S ulfamethoxazole: stomach upset - Side Effects. Objective: * Vitals: W t: 197, Temp: 98.0, BP: 118/70, HR: 72, Nurse: nasim, Ht: 65.50, BMI:32.28. * Examination: G eneral Examination: General Appearance: N AD, using a cane to assist with ambulation. H eart: R SR. L ungs: c lear to auscultation. E xtremities: n o leg edema. Assessment: * Assessment: 1. S yncope, unspecified syncope type - R55 (Primary) 2 . D izziness - R42? 3. S tage 3b chronic kidney disease - N18.32 4 . C onstipation, unspecified constipation type - K59.00 Plan: * Treatment: 2. D izziness Notes: Meclizine OTC as needed 3. S tage 3b chronic kidney disease L AB: P-Basic Metabolic Panel (BMP) (Collection Date & Time - 10/02/2024 09:10 AM) c reat 1.36, eGFR 41 Value Reference Range B UN 13 8-23 - mg/dL * C alcium 9.0 8.6-10.4 - mg/dL * C hloride 101 97-108 - mmol/L * C O2 23 20-32 - mmol/L * C reatinine 1.36 H 0.50-1.00 - mg/dL * G lucose 92 65-99 - mg/dL * P otassium 4.0 3.5-5.3 - mmol/L * S odium 136 135-145 - mmol/L * e GFR by Creatinine 41 L >59 - mL/min/1.73m2 * Judith Mckeon 10/03/2024 10: 42:17 AM EDT > See phone encounter 4.?Constipation, unspecified constipation type? Notes: Much improved?? * Procedure Codes: G 2211 Complex e/m visit add on, 1036F TOBACCO NON-USER, G8752 MOST RECENT SYSTOLIC BP < 140MM HG, G8754 MOST RECENT DIASTOLIC BP < 90MM HG, G8783 BP SCR PRFRM RCMDD DEFIND SCR INTVL * Follow Up: a s scheduled,and prn * Images: Billing Information: * Visit Code: 08109 Office Visit, Est Pt., Level 3. * Procedure Codes: G2211 Complex e/m visit add on. 1036F TOBACCO NON-USER. G8752 MOST RECENT SYSTOLIC BP < 140MM HG. G8754 MOST RECENT DIASTOLIC BP < 90MM HG. G8783 BP SCR PRFRM RCMDD DEFIND SCR INTVL. * Electronic signature of Calli Gómez MD on 11/05/2024 at 09:32 AM EDT Sign off status: Pending * Provider: Alisha Gómez M.D. Date: 0 10/02/2024 Generated for Viktoriya vang/Shanda/[place] on: 0 11/05/2024 09:32 AM EDT History and Physical Notes * HPI (History of Present Illness) Category Sub-Category Detail Notes Category Not es Neurology syncope Pt here for 2 we ek f/u. Pt states she has been checking bp at home and it has been pretty good . She has felt much better since stopping Lasix Examination Category Sub-Category Detail Notes Category Not es General Examination Heart: RSR Lungs: clear to auscultatio n Extremities: no leg edema General Appearance: NAD, using a cane to assist with ambulation
--- OUTSIDE RECORDS SUMMARY | 2024-10-31 05:15 | XMS_ITS ---
[facility] Organization [facility] Address [address] [facility] [address] DEL[place] Cunningham [id number] Care Team Providers Care Antisqueak Worker Name Role Phone Mima Gómezian Primary Care Provider Allergies Allergen (clinical drug ingredient) Drug/Non Drug Allergy documented on EMR Reaction Allergy Type Onset Date Status Sulfamethoxazole stomach upset Drug Allergy Active Results Component Value Reference Range Notes Glucose (In-House) Reviewed date:10/31/2024 01:13:59 PM Interpretation:96 Performing Lab: Notes/Report: 96 blood glucose 96 74 - 106 mg/dL Glycohemoglobin A1c (in hous e) Reviewed date:10/31/2024 01:13:43 PM Interpretation:5.7 Performing Lab: Notes/Report: 5.7 glycohemoglobin 5.7% 5 - 6.5 % P-Basic Metabolic Panel (BMP ) Reviewed date:11/03/2024 09:08:28 AM Interpretation:Cr 1.26, gfr 45 Performing Lab: Notes/Report: Test performed by [facility], [place] [address] [place] [address] , [address], [place] [address] Yovanny Morgan MD, Chief Wellness Officer CLIA: [id number] Sodium 139 135-145 mmol/L Potassium 4.5 3.5-5.3 mmol/L Chloride 104 97-108 mmol/L CO2 26 20-32 mmol/L Glucose 88 65-99 mg/dL BUN 17 8-23 mg/dL Creatinine 1.26 0.50-1.00 mg/dL Calcium 9.0 8.6-10.4 mg/dL eGFR by Creatinine 45 >59 mL/min/1.73m2 P-Microalbumin/Creatinine, R andom Urine Sample Reviewed date:11/03/2024 09:08:28 AM Interpretation:a/c 46 Performing Lab: Notes/Report: Test performed by [facility] [address] [place] [address] , [place] , [place] [address] Yovanny Morgan MD, Chief Wellness Officer CLIA: [id number] Albumin/Creatinine Ratio, Urine 46 0-30 ug/m g Microalbumin, Urine, Random 3.0 Creatinine, Urine 65.1 P-Vitamin D 25-Hydroxy Reviewed date:11/03/2024 09:08:28 AM Interpretation:37.9 Performing Lab: Notes/Report: Test performed by [facility] [address] [place] [address] , [address], [place] [address] Yovanny Morgan MD, Chief Wellness Officer CLIA: [id number] Vitamin D 25-Hydroxy 37.9 30.0-100.0 ng/mL Interpretation of Vitamin D 25 OH: < 20 ng/mL - Deficiency 20 - 29 ng/mL - Insufficiency 30 - 100 ng/mL - Sufficiency > 100 ng/mL - Super-therapeutic- toxicity may occur above this level. Clinical correlation required. REASON FOR VISIT 4 months Medications Medication SIG (Take, Route, Frequency, Duration) Notes Start Date End Date Status Ozempic (1 MG/DOSE) 4 MG/3ML 1 mg Subcutaneous once a week Active Jardiance 10 MG 1 tablet Orally Once a day 025 Active Ozempic (1 MG/DOSE) 4 MG/3ML INJECT 1 MG SUBCUTANEOUSLY ONCE A WEEK; Duration: 28 Active MAGnesium-Oxide 400 (240 Mg) MG Take 2 tablets by mouth once daily; Duration: 90 Active ARIPiprazole 5 MG Take 1 tablet by once daily; Duration: 90 Active MiraLax 17 GM/SCOOP 1 scoop mixed with 8 ounces of fluid Orally Once a day; Duration: 30 day(s) 09/18/2024 Active Metamucil Smooth Texture 28.3 % as directed Orally 09/18/2024 Active Atorvastatin Calcium 40 MG 1 tablet Orally Once a day; Duration: 90 days Active DULoxetine HCl 60 MG Take 2 capsules by mouth once daily; Duration: 90 Active CareTouch CPAP & BIPAP Hose 1 DIRECTED Active Loratadine 10 MG 1 tab(s) orally once a day; Duration: 30 Active oxyBUTYnin Chloride ER 10 MG 1 tab(s) orally once a day; Duration: 90 days 12/30/2021 Active Slow Iron 160 (50 Fe) MG 1 tablet Orally once daily 12/15/2023 Active Miconazole Nitrate 2 % 1 application Ext ernally Twice a day 03/13/2024 Active SM Vitamin D3 100 MCG (4000 UT) 1 cap(s) orally once a day 12/24/2013 A ctive Aspirin 81 MG 1 tab(s) orally once a day Active Folate 400 MCG 1 tablet Orally Once a day Active Vitamin B12 1000 MCG 1 tablet Orally Once a day Active NexIUM 20 MG 1 cap(s) orally once a day 08/06/2014 Active Vital Signs Weight 197.6 lbs 10/31/2024 Blood pressure systolic 122 mm Hg 11/01/19 25 Blood pressure diastolic 74 mm Hg 025 Heart Rate 66 /min 10/31/2024 Height 65.50 in 10/31/2024 BMI 32.38 kg/m2 10/31/2024 Encounters Encounter Location Date Provider Diagnosis [facility] [address] [facility] [address] [place] [address], [place] [id number] 10/31/2024 Beto Gómez Type 2 diabetes mellitus without complication, without long-term current use of insulin E11.9 ; Stage 3a chronic kidney disease N18.31 and Vitamin D deficiency E55.9 Assessments Encounter Date Diagnosis (ICD Code) Assessment Notes Treatment Notes Treatment Clinical Notes Section Notes 10/31/2024 Type 2 diabetes mellitus without complication, without long-term current use of insulin (ICD-10 - E11.9) 10/31/2024 Stage 3a chronic kidney disease (ICD-10 - N18.31) 10/31/2024 Vitamin D deficiency (ICD-10 - E55.9) Plan Of Treatment Medication Medication Name Sig Start Date Stop Date Notes Ozempic (1 MG/DOSE) 4 MG/3ML 1 mg Subcutaneous once a week Jardiance 10 MG 1 tablet Orally Once a day 07/16/2024 Next Appt Details Follow Up: 6 Months, Reason: Provider Name:Beto morrison, 05/04/2025 09:45:00 AM, [address], [address], [place], [place], [id number], Progress Notes * Cuate REEVESDOB:1950 (74 yo F)Acc No.[id number]:10/31/2024 Progress Notes Patient: Cuate LAZARO Provider: Alisha Gómez M.D. :1950 A ge:74 Y S ex:Female Date:10/31/2024 Address:[address] [place], [place] [address] [address] [place], [id number] Subjective: * Chief Complaints: * 1 . 4 months. * HPI: C ardiology: 74 year old female presents with c/o Blood Pressure Elevated?Pt here for 4 mo check up on hypertension. Pt states she is doing well and does not have any concerns. c/o Hyperlipidemia P t is fasting today. E ndocrinology: c/o Recent Blood Sugars P t here to f/u on DM 2. * ROS: D ERMATOLOGY: no R aziza. [...] * Hospitalization/Major Diagno stic Procedure: F all- [facility] ER 01/12/2019. * Family History: F [...] application Externally Twice a day , Taking Atorvastatin Calcium 40 MG Tablet 1 tablet Orally Once a day , Taking DULoxetine HCl 60 MG Capsule Delayed Release Particles Take 2 capsules by mouth once daily , Taking Jardiance 10 MG Tablet 1 tablet Orally Once a day , Taking MiraLax 17 GM/SCOOP Powder 1 scoop mixed with 8 ounces of fluid Orally Once a day , Taking Metamucil Smooth Texture 28.3 % Powder as directed Orally , Taking Ozempic (1 MG/DOSE) 4 MG/3ML Solution Pen-injector INJECT 1 MG SUBCUTANEOUSLY ONCE A WEEK , Taking MAGnesium- Oxide 400 (240 Mg) MG Tablet Take 2 tablets by mouth once daily , Taking ARIPiprazole 5 MG Tablet Take 1 tablet by mouth once daily , Discontinued Nabumetone 750 MG Tablet 2 tablet Orally Once a day , Medication List reviewed and reconciled with the patient * Allergies: S ulfamethoxazole: stomach upset - Side Effects. Objective: * Vitals: W t: 197.6, Temp: 97.7, BP: 122/74, HR: 66, Nurse: KK, Ht: 65.50, BMI:32.38. * Examination: G eneral Examination: General Appearance: N AD, using a cane to assist with ambulation. H eart: R SR. L ungs: c lear to auscultation. E xtremities: n o leg edema. Assessment: * Assessment: 1. T ype 2 diabetes mellitus without complication, without long-term current use of insulin - E11.9 (Primary) 2 . S tage 3a chronic kidney disease - N18.31 3 .?Vitamin D deficiency - E55.9 Plan: * Treatment: Value Reference Range B UN 17 8-23 - mg/dL * C alcium 9.0 8.6-10.4 - mg/dL * C hloride 104 97-108 - mmol/L * C O2 26 20-32 - mmol/L * C reatinine 1.26 H 0.50-1.00 - mg/dL * G lucose 88 65-99 - mg/dL * P otassium 4.5 3.5-5.3 - mmol/L * S odium 139 135-145 - mmol/L * e GFR by Creatinine 45 L >59 - mL/min/1.73m2 * Laly Reynoso 11/03/2024 09:0 8:22 AM EDT > See phone encounter ?LAB: P-Microalbumin/Creatinine, Random Urine Sample (Collection Date & Time - 10/31/2024 09:05 AM)?a/c 46* Value Reference Range A lbumin/Creatinine Ratio, Urine 46 H 0-30 - ug /mg * C reatinine, Urine 65.1 - mg/dL * M icroalbumin, Urine, Random 3.0 - mg/dL * Laly Reynoso 11/03/2024 09:0 8:22 AM EDT > See phone encounter ?LAB: Glucose (In-House) (Collection Date & Time - 10/31/2024)?96* Value Reference Range b lood glucose 96 74 - 106 mg/dL * Annabelle Vidal 10/31/2024 11:48:4 7 AM EDT >Beto Gómez 10/31/2024 01:13:49 PM EDT > ?LAB: Glycohemoglobin A1c (in house) (Collection Date & Time - 10/31/2024)? 5.7* Value Reference Range g lycohemoglobin 5.7% 5 - 6.5 % * Annabelle Vidal 10/31/2024 11:49:0 2 AM EDT >Beto Gómez T 10/31/2024 01:13:36 PM EDT > 2.?Stage 3a chronic kidney disease?LAB: P-Basic Metabolic Panel (BMP) (Collection Date & Time - 10/31/2024 09:05 AM)?Cr 1.26, gfr 45* Value Reference Range B UN 17 8-23 - mg/dL * C alcium 9.0 8.6-10.4 - mg/dL * C hloride 104 97-108 - mmol/L * C O2 26 20-32 - mmol/L * C reatinine 1.26 H 0.50-1.00 - mg/dL * G lucose 88 65-99 - mg/dL * P otassium 4.5 3.5-5.3 - mmol/L * S odium 139 135-145 - mmol/L * e GFR by Creatinine 45 L >59 - mL/min/1.73m2 * Laly Reynoso 11/03/2024 09:0 8:22 AM EDT > See phone encounter 3.?Vitamin D deficiency?LAB: P-Vitamin D 25-Hydroxy (Collection Date & Time - 10/31/2024 09:05 AM)? 37.9* Value Reference Range V itamin D 25-Hydroxy 37.9 30.0-100.0 - ng/mL * Laly Reynoso 11/03/2024 09:0 8:22 AM EDT > See phone encounter * Procedure Codes: G 2211 Complex e/[place], [address] GLUCOSE TEST, 98258 GLYCATED HEMOGLOBIN TEST, Modifiers: QW * Follow Up: 6 Months * Images: Billing Information: * Visit Code: 80249 Office Visit, Est Pt., Level 4. * Procedure Codes: G2211 Complex e/[place]. [address] GLUCOSE TEST. 86885 GLYCATED HEMOGLOBIN TEST. Modifiers: QW * Electronic signature of Calli Gómez MD on 11/05/2024 at 09:33 AM EDT Sign off status: Pending * Provider: Alisha Gómez M.D. Date: 0 10/31/2024 Generated for Viktoriya vang/Shanda/Hamitting on: 0 11/05/2024 09:33 AM EDT History and Physical Notes * HPI (History of Present Illness) Category Sub-Category Detail Notes Category Not es Endocrinology Recent Blood Sugars Pt here to f/u on DM 2 Cardiology Blood Pressure Elevated Pt here for 4 mo check up on hypertension. Pt states she is doing well and does not have any concerns Hyperlipidemia Pt is fasting today Examination Category Sub-Category Detail Notes Category Not es General Examination Heart: RSR Lungs: clear to auscultatio n Extremities: no leg edema General Appearance: NAD, using a cane to assist with ambulation
--- OUTSIDE RECORDS SUMMARY | 2024-11-05 09:30 | XMS_ITS | Encounter Summary ---
Author Organization [facility] Address [address] [id number] Care Team Providers Care Licensed Therapist Name Role Phone Beto Gómez MD Primary Care Provider [phone] Encounter Details Date Type Department Care Team (Late Contact Info) Description 03/21/2021 Orders Only External Location [address] [place] [address] Beto Gómez MD [address] [facility] [address] [id number] Social History Tobacco Use Types Packs/Day Years Used Date Smoking Tobacco: Never Assessed Comments Unknown Sex and Gender Information Value Date Recorded Sex Assigned at Not on file Legal Sex Female 8:12 PM EDT Gender Identity Not on file Sexual Orientation Not on file documented as of this encounter Plan of Treatment Upcoming Encounters Date Type Department Care Team (Late Contact Info) Description 11/12/2024 1:00 PM EDT Office Visit Professional [facility] Nephrology, Bone & Mineral Metabolism [address] [facility] [address], [address] [place] [address] Blade Correa MD [address] [place] [address] documented as of this encounter Procedures Procedure Name Priority Date/Time Associated Diagnosis Comments CT OUTSIDE IMAGES 03/21/2021 2:32 PM EST documented in this encounter Results * CT OUTSIDE IMAGES (03/21/2021 2:32 PM EST) Anatomical Region Laterality Modality Computed Tomogra phy 03/21/2021 2:32 PM EST Beto Gómez MD IMG CT PROCEDURES Final Resu lt documented in this encounter Visit Diagnoses Not on filedocumented in this encounter Care Teams Licensed Therapist Relationship Specialty Start Date End Date Beto Gómez MD [address] [place] [address] PCP - General 03/26/20 documented as of this encounter
--- OUTSIDE RECORDS SUMMARY | 2024-11-05 09:30 | XMS_ITS | Encounter Summary ---
Author Organization [facility] Address [address] [id number] Care Team Providers Care Chief Pilot Name Role Phone Beto Gómez MD Primary Care Provider [phone] Encounter Details Date Type Department Care Team (Late Contact Info) Description 07/08/2021 Orders Only External Location [address] [place] [address] Provider, External Social History Tobacco Use Types Packs/Day Years Used Date Smoking Tobacco: Never Assessed Comments Unknown Sex and Gender Information Value Date Recorded Sex Assigned at Not on file Legal Sex Female 8:12 PM EDT Gender Identity Not on file Sexual Orientation Not on file documented as of this encounter Plan of Treatment Upcoming Encounters Date Type Department Care Team (Late st Contact Info) Description 11/12/2024 1:00 PM EDT Office Visit [facility] Nephrology, Bone & Mineral Metabolism [address] [facility], [address] [place] [address] Blade Correa MD [address] [place] [address] documented as of this encounter Procedures Procedure Name Priority Date/Time Associated Diagnosis Comments CT OUTSIDE IMAGES 07/08/2021 1:06 PM EDT documented in this encounter Results * CT OUTSIDE IMAGES (07/08/2021 1:06 PM EDT) Anatomical Region Laterality Modality Computed Tomogra phy 07/08/2021 1:06 PM EDT External Provider IMG CT PROCEDURES Final Result documented in this encounter Visit Diagnoses Not on filedocumented in this encounter Care Teams Chief Pilot Relationship Specialty Start Date End Date Beto Gómez MD [address] [place] [address] PCP - General 03/26/20 documented as of this encounter
--- OUTSIDE RECORDS SUMMARY | 2024-11-05 09:30 | XMS_ITS | Encounter Summary ---
Author Organization [facility] Address [address] [phone] Care Team Providers Care Die Setter Name Role Phone Beto Gómez MD Primary Care Provider [phone] Encounter Details Date Type Department Care Team (Late Contact Info) Description 07/08/2021 Orders Only External Location [address] [place] [address] Provider, External Social History Tobacco Use Types [...] Description 11/12/2024 1:00 PM EDT Office Visit [facility] Nephrology, Bone & Mineral Metabolism [address] [facility], [address] [place] [address] Blade Correa MD [address] [place] [address] documented as of this encounter Procedures Procedure [...] on filedocumented in this encounter Care Teams Die Setter Relationship Specialty Start Date End Date Beto Gómez MD [address] [place] [address] PCP - General 03/26/20 documented as of this encounter
--- OUTSIDE RECORDS SUMMARY | 2024-11-05 09:31 | XMS_ITS ---
Author Organization Unknown Problems Date Problem Result OnSetDate Icd10 SnomedCode Severity Cu stom 12/13/2023 00:00:00 Hyperuricemia E79.0 [id number] 12/31/2023 00:00:00 Mild anemia D64.9 [id number] 12/31/2023 00:00:00 Anemia, unspecified type D64.9 [id number] 07/01/2024 00:00:00 Lumbago with sciatica, right side M54.41 [id number] 07/01/2024 00:00:00 Lumbago with sciatica, left side M54.42 936237718 07/01/2024 00:00:00 Other chronic pain G89.29 09372314 07/01/2024 00:00:00 BMI 33.0-33.9,adult Z68.33 [id number] 09/12/2024 00:00:00 Stage 3b chronic kidney disease N18.32 [id number] 09/18/2024 00:00:00 Constipation, unspecified constipation type K59.00 [id number]
--- OUTSIDE RECORDS SUMMARY | 2024-11-05 09:32 | XMS_ITS | Encounter Summary ---
Author Organization [facility] Address [address] [id number] Care Team Providers Care Alumina Plant Supervisor Name Role Phone Beto Gómez MD Primary Care Provider [phone] Encounter Details Date Type Department Care Team (Late Contact Info) Description 03/11/2021 Orders Only External Location [address] [place] [address] Beto Gmóez MD [address] [facility] [address] [phone] Social History Tobacco Use Types Packs/Day Years [...] 11/12/2024 1:00 PM EDT Office Visit Professional [facility] Nephrology, Bone & Mineral Metabolism [address] [facility] [address], [address] [place] [address] Blade Correa MD [address] [place] [address] documented as of this encounter Procedures Procedure Name Priority Date/Time Associated Diagnosis Comments XR OUTSIDE IMAGES 03/11/2021 3:41 PM EST documented in this encounter Results * XR OUTSIDE IMAGES (03/11/2021 3:41 PM EST) Anatomical Region Laterality Modality Radiographic [place] ging 03/11/2021 3:41 PM EST us Beto Gómez MD IMG XR PROCEDURES Final Resu lt documented in this encounter Visit Diagnoses Not on filedocumented in this encounter Care Teams Alumina Plant Supervisor Relationship Specialty Start Date End Date Beto Gómez MD [address] [place] [address] PCP - General 03/26/20 documented as of this encounter
--- OUTSIDE RECORDS SUMMARY | 2024-11-05 09:32 | XMS_ITS | Encounter Summary ---
Author Organization [facility] Address [address] [phone] Care Team Providers Care Vacuum Tester Cans Name Role Phone Beto Gómez MD Primary Care Provider [phone] Encounter Details Date Type Department Care Team (Late Contact Info) Description 03/21/2021 Orders Only External Location [address] [place] [address] Beto Gómez MD [address] [facility] [address] [phone] Social History Tobacco Use Types Packs/Day Years [...] 11/12/2024 1:00 PM EDT Office Visit Professional [facility] Nephrology, Bone & Mineral Metabolism [address] [facility], [address] [place] [address] Blade Correa MD [address] [place] [address] documented as of this encounter Procedures Procedure [...] on filedocumented in this encounter Care Teams Vacuum Tester Cans Relationship Specialty Start Date End Date Beto Gómez MD [address] [place] [address] PCP - General 03/26/20 documented as of this encounter
--- OUTSIDE RECORDS SUMMARY | 2024-11-05 09:32 | XMS_ITS | Encounter Summary ---
Author Organization [facility] Address [address] [place] [address] Care Team Providers Care Weight Reduction Specialist Name Role Phone Beto Gómez MD Primary Care Provider [phone] Encounter Details Date Type Department Care Team (Late Contact Info) Description 09/19/2024 Orders Only [facility] [address] [facility] [address] [place] [address] Elina Herr Stage 3 chronic kidney disease, unspecified whether stage 3a or 3b CKD (CMS/HCC) (Primary Dx); Vitamin D insufficiency Social History Tobacco Use Types Packs/Day Years Used Date Smoking Tobacco: Former Cigarettes 2 31 1 966 - 1996 Passive Smoke Exposure: Past Smokeless Tobacco: Never PHQ-2 Answer Date Recorded Patient Health Questionnaire-2 Score 0 02/21/2023 PHQ-2A Answer Date Recorded Patient Health Questionnaire-2 Score 0 02/21/2023 Comments Unknown Sex and Gender Information Value Date Recorded Sex Assigned at Not on file Legal Sex Female 8:12 PM EDT Gender Identity Not on file Sexual Orientation Not on file documented as of this encounter Plan of Treatment Upcoming Encounters Date Type Department Care Team (Late Contact Info) Description 11/12/2024 1:00 PM EDT Office Visit [facility] Nephrology, Bone & Mineral Metabolism [address], [address] [place] [address] Blade Correa MD [address] [place] [address] Scheduled Orders Name Type Priority Associated Diagnoses Orde r Schedule Renal Function Panel, Plasma Lab Routine Stage 3 chronic kidney disease, unspecified whether stage 3a or 3b CKD ([facility]/HCC) Expected: 09/19/2024 (Approximate), Expires: 03/21/2026 CBC and Differential Lab Routine Stage 3 chronic kidney disease, unspecified whether stage 3a or 3b CKD ([facility]/HCC) Expected: 09/19/2024 (Approximate), Expires: 03/21/2026 Creatinine, Random, Urine Lab Routine Stage 3 chronic kidney disease, unspecified whether stage 3a or 3b CKD ([facility]/HCC) Expected: 09/19/2024 (Approximate), Expires: 03/21/2026 Protein, Random, Urine with Creatinine Lab Routine Stage 3 chronic kidney disease, unspecified whether stage 3a or 3b CKD ([facility]/HCC) Expected: 09/19/2024 (Approximate), Expires: 03/21/2026 Urinalysis with reflex microscopic (Culture NOT Included) Lab Routine Stage 3 chronic kidney disease, unspecified whether stage 3a or 3b CKD ([facility]/HCC) Expected: 09/19/2024 (Approximate), Expires: 03/21/2026 PTH Intact Total Lab Routine Stage 3 chronic kidney disease, unspecified whether stage 3a or 3b CKD ([facility]) Vitamin D insufficiency Expected: 09/19/2024 (Approximate), Expires: 03/21/2026 Vitamin D 25 Hydroxy Lab Routine Stage 3 chronic kidney disease, unspecified whether stage 3a or 3b CKD ([facility]/HCC) Vitamin D insufficiency Expected: 09/19/2024 (Approximate), Expires: 03/21/2026 documented as of this encounter Visit Diagnoses Diagnosis Stage 3 chronic kidney disease, unspecified whether stage 3a or 3b CKD ([facility])- Primary Vitamin D insufficiency documented in this encounter Additional Health Concerns Assessment Noted Time A fall risk assessment has been complete d for the patient 02/21/2023 9:11 AM EST A Body Mass Index follow-up plan has been documented for the patient 02/21/2023 9:53 AM EST documented as of this encounter Care Teams Weight Reduction Specialist Relationship Specialty Start Date End Date Beto Gómez MD [facility] [place] [address] PCP - General 03/26/20 documented as of this encounter
[2024-11-05 09:34] LABS: Microscopic, Urine URINE MICROSCOPIC (MICROSCOPIC)
--- OUTSIDE RECORDS SUMMARY | 2024-11-05 09:34 | XMS_ITS | Patient Health Record ---
Author Organization [facility] Address [address] [place] [id number] Care Team Providers Care Cost Control Supervisor Name Role Phone Mima Gómezian Primary Care Provider Allergies Allergen (clinical drug ingredient) Drug/Non Drug Allergy documented on EMR Reaction Allergy Type Onset Date Status Sulfamethoxazole stomach upset Drug Allergy Active Results Component Value Reference Range Notes P-Basic Metabolic Panel (BMP ) Reviewed date:10/03/2024 10:42:28 AM Interpretation:creat 1.36, eGFR 41 Performing Lab: Notes/Report: Test performed by [facility] [address] [place] [address] , [address], [place] [address] Yovanny Morgan MD, Project Development Director CLIA: [id number] Sodium 136 135-145 mmol/L Potassium 4.0 3.5-5.3 mmol/L Chloride 101 97-108 mmol/L CO2 23 20-32 mmol/L Glucose 92 65-99 mg/dL BUN 13 8-23 mg/dL Creatinine 1.36 0.50-1.00 mg/dL Calcium 9.0 8.6-10.4 mg/dL eGFR by Creatinine 41 >59 mL/min/1.73m2 Glucose (In-House) Reviewed date:10/31/2024 01:13:59 PM Interpretation:96 Performing Lab: Notes/Report: 96 blood glucose 96 74 - 106 mg/dL Glycohemoglobin A1c (in hous e) Reviewed date:10/31/2024 01:13:43 PM Interpretation:5.7 Performing Lab: Notes/Report: 5.7 glycohemoglobin 5.7% 5 - 6.5 % P-Basic Metabolic Panel (BMP ) Reviewed date:11/03/2024 09:08:28 AM Interpretation:Cr 1.26, gfr 45 Performing Lab: Notes/Report: Test performed by [facility] [address] [place] [address] , [address], [place] [address] Yovanny Morgan MD, Project Development Director CLIA: [id number] Sodium 139 135-145 mmol/L Potassium 4.5 3.5-5.3 mmol/L Chloride 104 97-108 mmol/L CO2 26 20-32 mmol/L Glucose 88 65-99 mg/dL BUN 17 8-23 mg/dL Creatinine 1.26 0.50-1.00 mg/dL Calcium 9.0 8.6-10.4 mg/dL eGFR by Creatinine 45 >59 mL/min/1.73m2 P-Microalbumin/Creatinine, R andom Urine Sample Reviewed date:11/03/2024 09:08:28 AM Interpretation:a/c 46 Performing Lab: Notes/Report: Test performed by [facility] [address] , [address], [place] [address] Yovanny Morgan MD, Project Development Director CLIA: [id number] Albumin/Creatinine Ratio, Urine 46 0-30 ug/m g Microalbumin, Urine, Random 3.0 Creatinine, Urine 65.1 P-Vitamin D 25-Hydroxy Reviewed date:11/03/2024 09:08:28 AM Interpretation:37.9 Performing Lab: Notes/Report: Test performed by [facility] [address] , [address], [place] [address] Yovanny Morgan MD, Project Development Director CLIA: [id number] Vitamin D 25-Hydroxy 37.9 30.0-100.0 ng/mL Interpretation of Vitamin D 25 OH: < 20 ng/mL - Deficiency 20 - 29 ng/mL - Insufficiency 30 - 100 ng/mL - Sufficiency > 100 ng/mL - Super-therapeutic- toxicity may occur above this level. Clinical correlation required. P-Iron Reviewed date:01/01/2024 08:59:58 AM Interpretation: Performing Lab: Notes/Report: P-Ferritin Reviewed date:01/02/2024 10:33:58 AM Interpretation:Normal Performing Lab: Notes/Report: Test performed by [facility] [address] , [address], [place] [address] Yovanny Morgan MD, Project Development Director CLIA: [id number] Ferritin 15.1 13.0-301.0 ng/mL P-Iron with Transferrin Satu ration Reviewed date:01/02/2024 10:33:58 AM Interpretation:Normal Performing Lab: Notes/Report: Test performed by [facility] [address] [place] [address] , [address], [place] [address] Yovanny Morgan MD, Project Development Director CLIA: [id number] Iron 71 37-145 ug/dL Transferrin 305 200-360 mg/dL Transferrin Saturation Percentage 16 15-50 % CBC Venipuncture (in house) Reviewed date:12/31/2023 10:39:43 AM Interpretation: Performing Lab: Notes/Report: wbc 9.5 3.5 - 10 lymph 15.9 15 - 50 mid 5.4 2 - 15 gran 78.7 35 - 80 rbc 4.92 3.5 - 5.5 hgb 12.4 11.5 - 16.5 hct 38.9 35 - 55 mcv 79.1 75 - 100 mch 25.2 25 - 35 mchc 31.8 31 - 38 platlet 318 100 - 400 P-Uric Acid Reviewed date:12/14/2023 10:14:57 AM Interpretation: Normal Performing Lab: Notes/Report: Test performed by [facility] [address] [place] [address] , [address], [place] [address] Yovanny Morgan MD, Project Development Director CLIA: [id number] Uric Acid 7.0 2.4-7.0 mg/dL P-Microalbumin/Creatinine, R andom Urine Sample Reviewed date:12/14/2023 10:14:57 AM Interpretation: Normal Performing Lab: Notes/Report: Test performed by [facility] [address] [place] [address] , [address], [place] [address] Yovanny Morgan MD, Project Development Director CLIA: [id number] Albumin/Creatinine Ratio, Urine 23 0-30 ug/m g Microalbumin, Urine, Random 2.6 Creatinine, Urine 110.7 P-TSH reflex to FT4 Reviewed date:12/14/2023 10:14:57 AM Interpretation: Normal Performing Lab: Notes/Report: [facility] , [facility] [place] [address] Yovanny Morgan MD, Project Development Director CLIA: [id number] TSH reflex to FT4 3.77 0.43-5.25 mU/L P-Phosphorus Reviewed date:12/14/2023 10:14:57 AM Interpretation: Normal Performing Lab: Notes/Report: Test performed by [facility] [employer] , [place] [address] Yovanny Morgan MD, Project Development Director CLIA: [id number] Phosphorus 4.0 2.5-4.5 mg/dL P-Lipid Panel Reviewed date:12/14/2023 10:14:57 AM Interpretation:trigs 156, hdl 38 Performing Lab: Notes/Report: [facility] , [place] [address] Yovanny Morgan MD, Project Development Director CLIA: [id number] Cholesterol 138 <200 mg/dL Triglycerides 156 <150 mg/dL HDL Cholesterol 38 >39 mg/dL Cholesterol / HDL Ratio 3.63 0.00-4.44 Ratio Non-HDL Cholesterol 100 <130 mg/dL LDL Cholesterol (Calculation) 69 <130 mg/dL LDL Cholesterol Levels* Less than 100 mg/dL Optimal 100 to 129 mg/dL Near Optimal/ Above Optimal 130 to 159 mg/dL Borderline High 160 to 189 mg/dL High 190 mg/dL and above Very High * Categories as recommended by the 2004 ATPIII guidelines LDL/HDL Ratio 1.8 <3.3 Ratio LDL Cholesterol Patient History Test Date: 06/07/2023 LDL Results: 53 Units: mg/dL % Change: - Test Date: 12/13/2023 LDL Results: 69 Units: mg/dL % Change: +30% P-Comprehensive Metabolic Pa geni (CMP) Reviewed date:12/14/2023 10:14:57 AM Interpretation:gluc 134, alk phos 130 Performing Lab: Notes/Report: Test performed by [facility] [address] [facility] , [address], [place] [address] Yovanny Morgan MD, Project Development Director CLIA: [id number] Sodium 139 135-145 mmol/L Potassium 4.4 3.5-5.3 mmol/L Chloride 104 97-108 mmol/L CO2 24 22-32 mmol/L Glucose 134 65-99 mg/dL BUN 15 8-23 mg/dL Creatinine 0.88 0.50-1.00 mg/dL Calcium 8.8 8.6-10.4 mg/dL eGFR by Creatinine 70 >59 mL/min/1.73m2 Protein 6.2 6.0-8.3 g/dL Albumin 3.7 3.5-5.3 g/dL Alkaline Phosphatase 130 35-121 IU/L ALT (SGPT) 9 <5-47 IU/L AST (SGOT) 9 <5-40 IU/L Bilirubin, Total <0.2 <0.2-1.2 mg/dL A/G Ratio 1.5 1.1-2.5 Glycohemoglobin A1c (in hous e) Reviewed date:12/14/2023 10:14:57 AM Interpretation:6.6 Performing Lab: Notes/Report: 6.6 glycohemoglobin 6.6% 5 - 6.5 % CBC Venipuncture (in house) Reviewed date:12/14/2023 10:14:57 AM Interpretation:hgb 10.1, hct 31.4 Performing Lab: Notes/Report: hgb 10.1, hct 31.4 wbc 7.0 3.5 - 10 lymph 18.9% 15 - 50 mid 5.2% 2 - 15 gran 75.9% 35 - 80 rbc 4.00 3.5 - 5.5 hgb 10.1 11.5 - 16.5 hct 31.4 35 - 55 mcv 78.4 75 - 100 mch 25.2 25 - 35 mchc 32.1 31 - 38 platlet 271 100 - 400 Glucose (In-House) Reviewed date:12/14/2023 10:14:57 AM Interpretation:174 Performing Lab: Notes/Report: 174 blood glucose 174 74 - 106 mg/dL Glucose (In-House) Reviewed date:03/04/2024 10:29:31 AM Interpretation:169 Performing Lab: Notes/Report: 169 blood glucose 169 74 - 106 mg/dL CBC Venipuncture (in house) Reviewed date:03/04/2024 10:29:31 AM Interpretation: Performing Lab: Notes/Report: wbc 7.7 3.5 - 10 lymph 16.2% 15 - 50 mid 5.0% 2 - 15 gran 78.8% 35 - 80 rbc 4.66 3.5 - 5.5 hgb 11.6 11.5 - 16.5 hct 35.7 35 - 55 mcv 76.6 75 - 100 mch 25.0 25 - 35 mchc 32.6 31 - 38 platlet 231 100 - 400 Glycohemoglobin A1c (in hous e) Reviewed date:03/04/2024 10:29:31 AM Interpretation:6.3 Performing Lab: Notes/Report: 6.3 glycohemoglobin 6.3% 5 - 6.5 % P-Basic Metabolic Panel (BMP ) Reviewed date:03/04/2024 10:29:31 AM Interpretation:K+ 3.2, gluc 129 Performing Lab: Notes/Report: Test performed by [facility] [address] [place] [address] , [address], [place] [address] Yovanny Morgan MD, Project Development Director CLIA: [id number] Sodium 139 135-145 mmol/L Potassium 3.2 3.5-5.3 mmol/L Chloride 98 97-108 mmol/L CO2 29 22-32 mmol/L Glucose 129 65-99 mg/dL BUN 12 8-23 mg/dL Creatinine 0.99 0.50-1.00 mg/dL Calcium 9.1 8.6-10.4 mg/dL eGFR by Creatinine 60 >59 mL/min/1.73m2 P-Magnesium Reviewed date:03/04/2024 10:29:31 AM Interpretation:Normal Performing Lab: Notes/Report: Test performed by [facility] [address] , [address], [place] [address] Yvoanny Morgan MD, Project Development Director CLIA: [id number] Magnesium 1.9 1.6-2.4 mg/dL P-Vitamin D 25-Hydroxy Reviewed date:03/04/2024 10:29:31 AM Interpretation:32.2 Performing Lab: Notes/Report: Test performed by [facility] [address] [place] [address] , [address], [place] [address] Yovanny Morgan MD, Project Development Director CLIA: [id number] Vitamin D 25-Hydroxy 32.2 30.0-100.0 ng/mL Interpretation of Vitamin D 25 OH: < 20 ng/mL - Deficiency 20 - 29 ng/mL - Insufficiency 30 - 100 ng/mL - Sufficiency > 100 ng/mL - Super-therapeutic- toxicity may occur above this level. Clinical correlation required. P-Vitamin B12 Reviewed date:07/03/2024 11:00:04 AM Interpretation:>2000 Performing Lab: Notes/Report: Test performed by [facility] [address] [place] [address] , [address], [place] [address] Yovanny Morgan MD, Project Development Director CLIA: [id number] Vitamin B12 >2000 232-1245 pg/mL P-Comprehensive Metabolic Pa geni (CMP) Reviewed date:07/03/2024 11:00:04 AM Interpretation:CO2 16, Glu 117, BUN 32, Creat 1.48, eGFR 37, Alk Phos 153 Performing Lab: Notes/Report: Test performed by [facility] [address] [place], [place] [address] [address], [place] [address] Yovanny Morgan MD, Project Development Director CLIA: [id number] Sodium 137 135-145 mmol/L Potassium 5.2 3.5-5.3 mmol/L Chloride 106 97-108 mmol/L CO2 16 22-32 mmol/L Glucose 117 65-99 mg/dL BUN 32 8-23 mg/dL Creatinine 1.48 0.50-1.00 mg/dL Calcium 9.6 8.6-10.4 mg/dL eGFR by Creatinine 37 >59 mL/min/1.73m2 Protein 7.1 6.0-8.3 g/dL Albumin 4.1 3.5-5.3 g/dL Alkaline Phosphatase 153 35-121 IU/L ALT (SGPT) 6 <5-47 IU/L AST (SGOT) 11 <5-40 IU/L Bilirubin, Total <0.2 <0.2-1.2 mg/dL A/G Ratio 1.4 1.1-2.5 P-Hemoglobin A1C Reviewed date:07/03/2024 11:00:04 AM Interpretation:6.0% Performing Lab: Notes/Report: Test performed by [facility] [address] [place] [address] [address], [place] [address] Yovanny Morgan MD, Project Development Director CLIA: [id number] Hemoglobin A1C 6.0 <5.7 % The following HbA1c ranges recommended by the [place] [employer] (ADA) may be used as an aid in the diagnosis of diabetes mellitus. HbA1c Suggested Diagnosis >=6.5% Diabetic 5.7% - 6.4% Pre-Diabetic <5.7% Non-Diabetic P-Lipid Panel Reviewed date:07/03/2024 11:00:04 AM Interpretation:trigs 266 Performing Lab: Notes/Report: Test performed by [facility] [address] [place] [address] [address], [place] [address] Yovanny Morgan MD, Project Development Director CLIA: [id number] Cholesterol 146 <200 mg/dL Triglycerides 266 <150 mg/dL HDL Cholesterol 46 >39 mg/dL Cholesterol / HDL Ratio 3.17 0.00-4.44 Ratio Non-HDL Cholesterol 100 <130 mg/dL LDL Cholesterol (Calculation) 47 <130 mg/dL LDL Cholesterol Levels* Less than 100 mg/dL Optimal 100 to 129 mg/dL Near Optimal/ Above Optimal 130 to 159 mg/dL Borderline High 160 to 189 mg/dL High 190 mg/dL and above Very High * Categories as recommended by the 2004 ATPIII guidelines LDL/HDL Ratio 1.0 <3.3 Ratio LDL Cholesterol Patient History Test Date: 06/07/2023 LDL Results: 53 Units: mg/dL % Change: - Test Date: 12/13/2023 LDL Results: 69 Units: mg/dL % Change: +30% Test Date: 07/01/2024 LDL Results: 47 Units: mg/dL % Change: -31% P-Magnesium Reviewed date:07/03/2024 11:00:04 AM Interpretation:Normal Performing Lab: Notes/Report: Test performed by [facility] [address] , [address], [place] [address] Yovanny Morgan MD, Project Development Director CLIA: [id number] Magnesium 2.2 1.6-2.4 mg/dL P-Vitamin D 25-Hydroxy Reviewed date:07/03/2024 11:00:04 AM Interpretation:Normal Performing Lab: Notes/Report: Test performed by [facility] [address] , [address], [place] [address] Yovanny Morgan MD, Project Development Director CLIA: [id number] Vitamin D 25-Hydroxy 37.5 30.0-100.0 ng/mL Interpretation of Vitamin D 25 OH: < 20 ng/mL - Deficiency 20 - 29 ng/mL - Insufficiency 30 - 100 ng/mL - Sufficiency > 100 ng/mL - Super-therapeutic- toxicity may occur above this level. Clinical correlation required. Estimated Average Glucose Reviewed date:07/03/2024 11:00:04 AM Interpretation: Performing Lab: Notes/Report: Test performed by [facility] [address] , [place] [address] Yovanny Morgan MD, Project Development Director CLIA: [id number] Estimated Average Glucose (eAG) 125 Estimated Average Glucose (eAG) is calculated using the equation eAG = (28.7 x HbA1c) - 46.7 based on the guidelines established by the ADA. If the patient has certain diseases including kidney disease, sickle cell anemia, thalassemia, or is taking medications such as dapsone, erythropoietin, or iron, eAG should not be evaluated. P-Basic Metabolic Panel (BMP ) Reviewed date:07/09/2024 09:10:51 AM Interpretation:K 5.4, glu 111, creat 1.38, eGFR 40 Performing Lab: Notes/Report: Test performed by [facility] [address] , [place] [address] Yovanny Morgan MD, Project Development Director CLIA: [id number] Sodium 136 135-145 mmol/L Potassium 5.4 3.5-5.3 mmol/L Chloride 105 97-108 mmol/L CO2 23 22-32 mmol/L Glucose 111 65-99 mg/dL BUN 23 8-23 mg/dL Creatinine 1.38 0.50-1.00 mg/dL Calcium 9.5 8.6-10.4 mg/dL eGFR by Creatinine 40 >59 mL/min/1.73m2 CBC Venipuncture (in house) Reviewed date:08/19/2024 09:44:36 AM Interpretation:not performed, see-returning 08/04 for labs Performing Lab: Notes/Report: not performed, see-returning 08/04 for labs P-Comprehensive Metabolic Pa geni (CMP) Reviewed date:07/21/2024 05:23:01 PM Interpretation:Abnormal Performing Lab: Notes/Report: Test performed by [facility] [address] [place] [address] , [address], [place] [address] Yovanny Morgan MD, Project Development Director CLIA: [id number] Sodium 137 135-145 mmol/L Potassium 4.4 3.5-5.3 mmol/L Chloride 105 97-108 mmol/L CO2 20 22-32 mmol/L Glucose 134 65-99 mg/dL BUN 29 8-23 mg/dL Creatinine 1.57 0.50-1.00 mg/dL Calcium 9.1 8.6-10.4 mg/dL eGFR by Creatinine 35 >59 mL/min/1.73m2 Protein 6.7 6.0-8.3 g/dL Albumin 3.8 3.5-5.3 g/dL Alkaline Phosphatase 136 35-121 IU/L ALT (SGPT) 7 <5-47 IU/L AST (SGOT) 10 <5-40 IU/L Bilirubin, Total <0.2 <0.2-1.2 mg/dL A/G Ratio 1.3 1.1-2.5 CBC Venipuncture (in house) Reviewed date:08/07/2024 11:33:51 AM Interpretation:Normal Performing Lab: Notes/Report: Normal wbc 7.6 3.5 - 10 lymph 15.9 15 - 50 mid 43.8 2 - 15 gran 79.3 35 - 80 rbc 5.54 3.5 - 5.5 hgb 14.0 11.5 - 16.5 hct 43.9 35 - 55 mcv 79.2 75 - 100 mch 25.3 25 - 35 mchc 32.0 31 - 38 platlet 301 100 - 400 P-Basic Metabolic Panel (BMP ) Reviewed date:08/07/2024 11:33:51 AM Interpretation:glu 112, creat 1.40, eGFR 40 Performing Lab: Notes/Report: Test performed by [facility] [address] [place] [address] , [address], [place] [address] Yovanny Morgan MD, Project Development Director CLIA: [id number] Sodium 139 135-145 mmol/L Potassium 4.9 3.5-5.3 mmol/L Chloride 100 97-108 mmol/L CO2 25 22-32 mmol/L Glucose 112 65-99 mg/dL BUN 12 8-23 mg/dL Creatinine 1.40 0.50-1.00 mg/dL Calcium 9.4 8.6-10.4 mg/dL eGFR by Creatinine 40 >59 mL/min/1.73m2 P-Uric Acid Reviewed date:08/07/2024 11:33:51 AM Interpretation:Normal Performing Lab: Notes/Report: Test performed by [facility] [address] [place] [address] , [address], [place] [address] Yovanny Morgan MD, Project Development Director CLIA: [id number] Uric Acid 6.2 2.4-7.0 mg/dL H-BMP Reviewed date:08/29/2024 11:28:50 AM Interpretation:Na 135, BUN 26, Creat 1.60, eGFR 32, Glu 133 Performing Lab: Notes/Report: NA 135 136-145 mmol/L K 4.4 3.5-5.1 mmoL/L CL 101 98-107 mmol/L CO2 25 22.0-30.0 mmol/L GAP 13.4 5-15 mEq/L BUN 26 7-17 mg/dl CREATT 1.60 0.52-1.04 mg/dl GFRAA 38 >60 ML/MIN EGFR 32 >60 ml/min GLU 133 74-100 mg/dl CA 9.3 8.4-10.2 mg/dl P-Basic Metabolic Panel (BMP ) Reviewed date:09/16/2024 05:00:39 PM Interpretation:gluc 112, Cr 1.5, gfr 37 Performing Lab: Notes/Report: Test performed by [facility] [address] [place] [address] , [address], [place] [address] Yovanny Morgan MD, Project Development Director CLIA: [id number] Sodium 135 135-145 mmol/L Potassium 4.9 3.5-5.3 mmol/L Chloride 97 97-108 mmol/L CO2 24 22-32 mmol/L Glucose 112 65-99 mg/dL BUN 19 8-23 mg/dL Creatinine 1.50 0.50-1.00 mg/dL Calcium 9.3 8.6-10.4 mg/dL eGFR by Creatinine 37 >59 mL/min/1.73m2 Reason For Referral Reason Patient needs to ree stablish care with [facility]. She saw them once in 2018 Diagnosis 1 Polyarthralgia (M25. 50) Diagnosis 2 JOLENE positive (R76.8) [facility] Referring Provider First Name Beto Referring Provider Last Name Dalia Referring Provider [facility] ctice Referred Provider Rheumatology, . Referred Provider Specialty Rheumatology General Notes Suyapa Zaman 2024 10:48:11 AM > submitted through [facility] website Referral Priority Routine Diagnosis 1 Stage 3b chronic kid tana disease (N18.32) Referral Organization [facility] Referring Provider First Name Beto Referring Provider Last Name Dalia Referring Provider [facility] kandy Referred Provider Blade Correa Referred Provider Specialty Nephrology General Notes Suyapa Zaman 2024 08:46:22 AM > faxed to [facility] Nephrology, Suyapa Zaman 09/15/2024 10:18:53 AM > fax failed; spoke to Mandi in clinic; was told to fax to Referral Priority Routine Medications Medication SIG (Take, Route, Frequency, Duration) Notes Start Date End Date Status SM Vitamin D3 100 MCG (4000 UT) 1 cap(s) orally once a day 12/24/2013 A ctive MiraLax 17 GM/SCOOP 1 scoop mixed with 8 ounces of fluid Orally Once a day; Duration: 30 day(s) 09/18/2024 Active Ozempic (1 MG/DOSE) 4 MG/3ML 1 mg Subcutaneous once a week; Duration: 28 days Active Aspirin 81 MG 1 tab(s) orally once a day Active Jardiance 10 MG 1 tablet Orally Once a day 025 Active Loratadine 10 MG 1 tab(s) orally once a day; Duration: 30 Active MAGnesium-Oxide 400 (240 Mg) MG Take 2 tablets by mouth once daily; Duration: 90 Active oxyBUTYnin Chloride ER 10 MG 1 tab(s) orally once a day; Duration: 90 days 12/30/2021 Active ARIPiprazole 5 MG Take 1 tablet by errol th once daily; Duration: 90 Active Slow Iron 160 (50 Fe) MG 1 tablet Orally once daily 12/15/2023 Active Miconazole Nitrate 2 % 1 application Ext ernally Twice a day 03/13/2024 Active Folate 400 MCG 1 tablet Orally Once a day Active Atorvastatin Calcium 40 MG 1 tablet Oral ly Once a day; Duration: 90 days Active Vitamin B12 1000 MCG 1 tablet Orally Once a day Active DULoxetine HCl 60 MG Take 2 capsules by mouth once daily; Duration: 90 Active NexIUM 20 MG 1 cap(s) orally once a day 08/06/2014 Active Metamucil Smooth Texture 28.3 % as directed Orally 09/18/2024 Active CareTouch CPAP & BIPAP Hose 1 DIRECTED Active Immunizations Vaccine Route Administration Date Status Comme nts xFluzone High Dose-private (65yr&older) Unknown 01/08/2018 Administered xFluzone (6mos and older)-trivalent Unknown 02/12/2015 Administered xFlu shot- 6months-36 months of mer-MNVT-HKVZ-trivalent Unknown 03/09/2016 Administered Prevnar (PCV20) IM Intramuscular 02/27/2022 Administered Prevnar (PCV13) IM Intramuscular 01/10/2017 Administered PNEUMOVAX 23 VACCINE IM Intramuscular 01/17/2019 Administe red Fluzone High Dose (65yr and older) IM Intramuscular 01/10/2017 Administered Fluzone High Dose (65yr and older) IM Intramuscular 01/17/2019 Administered Fluzone High Dose (65yr and older) IM Intramuscular 12/15/2019 Administered Fluzone High Dose (65yr and older) Unknown 01/13/2021 Administered Fluzone High Dose (65yr and older) Unknown 01/13/2021 Administered Fluzone High Dose (65yr and older) Unknown 01/18/2022 Administered Fluzone High Dose (65yr and older) Unknown 11/18/2022 Administered Fluzone High Dose (65yr and older) IM Intramuscular 12/13/2023 Administered COVID 19 Moderna Unknown 05/26/2020 Administered COVID 19 Moderna Unknown 06/23/2020 Administered COVID 19 Moderna Unknown 02/02/2021 Administered COVID 19 Moderna Unknown 07/21/2021 Administered Problems Problem Type SNOMED Code ICD Code Onset Dates Problem Status W/U Status Risk Notes Problem Vitamin D deficiency (75688964) Vitamin D deficiency (E55.9) Active confirmed Problem Essential hypertension (91961679) Essential hypertension (I10) Active confirmed Problem Hypertriglyceridemia (501815570) Hypertriglyceridemia (E78.1) Active confirmed Problem Polyarthralgia (32104550) Polyarthralgia (M25.50) Active confirmed Problem Hyperuricemia (44824794) Hyperuricemia (E79.0) Active confirmed Problem Mixed anxiety and depressive disorder (554474177) Depression with anxiety (F41.8) Active confirmed Problem Obese class I (167451778280425) BMI 33.0-33.9,adult (Z68.33) Active confirmed Problem Sciatica (49178125) Lumbago with sciatica, right side (M54.41) Active confirmed Problem Mixed hyperlipidemia (883202154) Mixed hyperlipidemia (E78.2) Active confirmed Problem Hypomagnesemia (212963533) Hypomagnesemia (E83.42) Active confirmed Problem Sciatica (73935798) Lumbago with sciatica, left side (M54.42) Active confirmed Problem Urge incontinence of urine (73697205) Urge incontinence (N39.41) Active confirmed Problem Depressive disorder (18225246) Depressive disorder (F32.9) Active confirmed Problem Chronic pain (65637038) Other chronic pain (G89.29) Active confirmed Problem Constipation (72515607) Constipation, unspecified constipation type (K59.00) Active confirmed Problem Atherosclerotic hear t disease of pech[place] coronary artery without angina pectoris (106320509831295) Coronary artery disease involving [place] coronary artery of [place] heart without angina pectoris (I25.10) Active confirmed Problem Gastroesophageal reflux disease (387989395) Gastroesophageal reflux disease, esophagitis presence not specified (K21.9) Active confirmed Problem Anemia (997068534) Anemia, unspe cified type (D64.9) Active confirmed Problem Sciatica (93302648) Midline low back pain with right-sided sciatica (M54.41) Active confirmed Problem Type II diabetes mellitus without complication (984003709) Type 2 diabetes mellitus without complication, without long-term current use of insulin (E11.9) Active confirmed Problem Depression (735692779) Other depression (F32.8) Active confirmed Problem Atherosclerotic hear t disease of [place] coronary artery without angina pectoris (424495258457061) Atherosclerosis of [place] coronary artery without angina pectoris, unspecified whether pechanga or transplanted heart (I25.10) Active confirmed Problem Obesity (518127039) Non morbid o besity (E66.9) Active confirmed Problem Type II diabetes mellitus without complication (592468679) Type 2 diabetes mellitus without complication, unspecified whether fci insulin use (E11.9) Active confirmed Problem Localized, primary osteoarthritis of the hand (322488784) Arthrosis of hand (M19.049) Active confirmed Problem Plain X-ray of chest abnormal (finding) (9061683918) Abnormal CXR (R93.89) Active confirmed Problem Anemia (596560267) Mild anemia (D64.9) Active c onfirmed Problem Diastolic dysfunctio n (0998366) Diastolic dysfunction (I51.89) Active confirmed Problem Chronic kidney disease stage 3B (disorder) (637210349) Stage 3b chronic kidney disease (N18.32) Active confirmed Problem Chronic kidney disease stage 3A (842273964) Stage 3a chronic kidney disease (N18.31) Active confirmed Problem Chronic ulcerating interstitial cystitis ([id number]) Chronic ulcerating interstitial cystitis (N30.10) Active confirmed Vital Signs Heart Rate 66 /min 10/31/2024 Blood pressure diastolic 74 mm Hg 10/31/2024 Height 65.50 in 10/31/2024 Blood pressure systolic 122 mm Hg 10/31/2024 Weight 197.6 lbs 10/31/2024 BMI 32.38 kg/m2 10/31/2024 Encounters Encounter Location Date Provider Diagnosis [facility] [address] [place] [id number] 12/13/2023 Beto Hanna Type 2 diabetes filiberto itus without complication, without long-term current use of insulin E11.9 ; Diarrhea, unspecified type R19.7 ; Mixed hyperlipidemia E78.2 ; Hypertriglyceridemia E78.1 ; Stage 3a chronic kidney disease N18.31 and Hyperuricemia E79.0 [facility] [address] [facility] [address] [place], [place] [id number] 12/31/2023 Beto Hanna Anemia, unspecified type D64.9 [facility] [address] [place] [id number] 03/03/2024 Beto Hanna Type 2 diabetes filiberto itus without complication, without long-term current use of insulin E11.9 ; Anemia, unspecified type D64.9 ; Stage 3a chronic kidney disease N18.31 ; Vitamin D deficiency E55.9 ; Hypomagnesemia E83.42 and Dizziness R42 [facility] [address] [place] [id number] 03/13/2024 Beto Hanna Tinea corporis B35.4 [facility] [address] [place] [id number] 07/01/2024 Beto Hanna Type 2 diabetes filiberto itus without complication, without long-term current use of insulin E11.9 ; Essential hypertension I10 ; Mixed hyperlipidemia E78.2 ; Lumbago with sciatica, right side M54.41 ; Lumbago with sciatica, left side M54.42 ; Other chronic pain G89.29 ; History of lumbar spinal fusion Z98.1 ; Stage 3a chronic kidney disease N18.31 ; Vitamin D deficiency E55.9 ; Hypomagnesemia E83.42 ; Polyarthralgia M25.50 ; Vitamin B12 deficiency E53.8 ; Atherosclerosis of pechanga coronary artery without angina pectoris, unspecified whether pechanga or transplanted heart I25.10 ; Diastolic dysfunction I51.89 ; JOLENE positive R76.8 ; Mild anemia D64.9 ; Non morbid obesity E66.9 ; Depression with anxiety F41.8 and BMI 33.0-33.9,adult Z68.33 [facility] [address] [place] [id number] 07/07/2024 Beto Hanna Stage 3a chronic kid tana disease N18.31 [facility] [address] [facility] [address] [place], [place] [id number] 07/18/2024 Beto Hanna Syncope, unspecified syncope type R55 ; Hypotension, unspecified hypotension type I95.9 and Renal insufficiency N28.9 [facility] [address] [facility] [address] [place] [id number] 08/04/2024 Beto Hanna Hypotension, unspeci fied hypotension type I95.9 ; Pain in right foot M79.671 and Stage 3a chronic kidney disease N18.31 [facility] [address] [facility] [address] [place], [place] [id number] 09/12/2024 Beto Hanna Essential hypertensi on I10 and Stage 3b chronic kidney disease N18.32 [facility] [address] [facility] [address] [place] [id number] 09/18/2024 Beto Hanna Syncope, unspecified syncope type R55 ; Essential hypertension I10 and Constipation, unspecified constipation type K59.00 [facility] [address] [facility] [address] [place] [id number] 10/02/2024 Beto Hanna Syncope, unspecified syncope type R55 ; Dizziness R42 ; Stage 3b chronic kidney disease N18.32 and Constipation, unspecified constipation type K59.00 [facility] [address] [facility] [address] [place] [id number] 10/31/2024 Beto Hanna Type 2 diabetes filiberto itus without complication, without long-term current use of insulin E11.9 ; Stage 3a chronic kidney disease N18.31 and Vitamin D deficiency E55.9 [facility] [address] [facility] [address] [place] [id number] 11/03/2024 Beto Hanna [facility] [address] [facility] [address] [place] [id number] 12/13/2023 Beto Hanna Type 2 diabetes filiberto itus without complication, without long-term current use of insulin E11.9 [facility] [address] [place] [id number] 12/14/2023 Beto Hanna [facility] [address] [place] [id number] 12/20/2023 Beto Hanna [facility] [address] [place] [id number] 12/21/2023 Beto Hanna [facility] [address] [place] [id number] 03/04/2024 Beto Hanna [facility] [address] [place] [id number] 04/16/2024 Beto Hanna [facility] [address] [place] [id number] 04/29/2024 Beto Hanna [facility] [address] [place] [id number] 07/03/2024 Beto Hanna [facility] [address] [place] [id number] 07/09/2024 Beto Hanna [facility] [address] [place] [id number] 07/21/2024 Beto Hanna [facility] [address] [place] [id number] 08/07/2024 Beto Hanna [facility] [address] [place] [id number] 08/11/2024 Beto Hanna Pain in right foot M 79.671 [facility] [address] [place] [id number] 08/27/2024 Beto Hanna Stage 3a chronic kid tana disease N18.31 [facility] [address] [place] [id number] 08/29/2024 Beto Hanna [facility] [address] [place] [id number] 09/16/2024 Beto Hanna [facility] [address] [place] [id number] 09/22/2024 Beto Hanna [facility] [address] [place] [id number] 10/03/2024 Beto Hanna [facility] [address] [place] [id number] 10/07/2024 Beto Hanna [facility] [address] [place] [id number] 10/21/2024 Beto Hanna Assessments Encounter Date Diagnosis (ICD Code) Assessment Notes Treatment Notes Treatment Clinical Notes Section Notes 12/13/2023 Type 2 diabetes filiberto itus without complication, without long-term current use of insulin (ICD-10 - E11.9) 12/13/2023 Diarrhea, unspecifie d type (ICD-10 - R19.7) 12/13/2023 Type 2 diabetes filiberto itus without complication, without long-term current use of insulin (ICD-10 - E11.9) 12/31/2023 Anemia, unspecified type (ICD-10 - D64.9) H/H has improved 03/03/2024 Anemia, unspecified type (ICD-10 - D64.9) 03/03/2024 Type 2 diabetes filiberto itus without complication, without long-term current use of insulin (ICD-10 - E11.9) 07/01/2024 Essential hypertensi on (ICD-10 - I10) 03/13/2024 Tinea corporis (ICD- 10 - B35.4) 07/01/2024 Type 2 diabetes filiberto itus without complication, without long-term current use of insulin (ICD-10 - E11.9) 07/18/2024 Syncope, unspecified syncope type (ICD-10 - R55) Syncope seems to be due to low blood pressure 07/18/2024 Hypotension, unspeci fied hypotension type (ICD-10 - I95.9) Blood pressure journal 08/04/2024 Pain in right foot (ICD-10 - M79.671) 08/04/2024 Hypotension, unspeci fied hypotension type (ICD-10 - I95.9) 08/11/2024 Pain in right foot (ICD-10 - M79.671) 08/27/2024 Stage 3a chronic kid tana disease (ICD-10 - N18.31) 09/12/2024 Essential hypertensi on (ICD-10 - I10) 09/12/2024 Stage 3b chronic kid tana disease (ICD-10 - N18.32) 09/18/2024 Essential hypertensi on (ICD-10 - I10) 09/18/2024 Syncope, unspecified syncope type (ICD-10 - R55) Blood pressure journal 10/02/2024 Dizziness (ICD-10 - R42) Mec lizine OTC as needed 10/02/2024 Syncope, unspecified syncope type (ICD-10 - R55) Resolved 10/31/2024 Type 2 diabetes filiberto itus without complication, without long-term current use of insulin (ICD-10 - E11.9) 10/31/2024 Stage 3a chronic kid tana disease (ICD-10 - N18.31) 10/02/2024 Stage 3b chronic kid tana disease (ICD-10 - N18.32) 10/31/2024 Vitamin D deficiency (ICD-10 - E55.9) 07/07/2024 Stage 3a chronic kid tana disease (ICD-10 - N18.31) 07/18/2024 Renal insufficiency (ICD-10 - N28.9) 09/18/2024 Constipation, unspecified constipation type (ICD-10 - K59.00) 08/04/2024 Stage 3a chronic kid tana disease (ICD-10 - N18.31) 07/01/2024 Mixed hyperlipidemia (ICD-10 - E78.2) 03/03/2024 Stage 3a chronic kid tana disease (ICD-10 - N18.31) 12/13/2023 Mixed hyperlipidemia (ICD-10 - E78.2) 12/13/2023 Hypertriglyceridemia (ICD-10 - E78.1) 03/03/2024 Vitamin D deficiency (ICD-10 - E55.9) 07/01/2024 Lumbago with sciatic a, right side (ICD-10 - M54.41) 10/02/2024 Constipation, unspecified constipation type (ICD-10 - K59.00) Much improved 07/01/2024 Lumbago with sciatic a, left side (ICD-10 - M54.42) 03/03/2024 Hypomagnesemia (ICD- 10 - E83.42) 12/13/2023 Stage 3a chronic kid tana disease (ICD-10 - N18.31) 12/13/2023 Hyperuricemia (ICD-1 0 - E79.0) 03/03/2024 Dizziness (ICD-10 - R42) 07/01/2024 Other chronic pain (ICD-10 - G89.29) 07/01/2024 History of lumbar sp inal fusion (ICD-10 - Z98.1) 07/01/2024 Stage 3a chronic kid tana disease (ICD-10 - N18.31) 07/01/2024 Vitamin D deficiency (ICD-10 - E55.9) 07/01/2024 Hypomagnesemia (ICD- 10 - E83.42) 07/01/2024 Polyarthralgia (ICD- 10 - M25.50) 07/01/2024 Vitamin B12 deficien cy (ICD-10 - E53.8) 07/01/2024 Atherosclerosis of pechanga coronary artery without angina pectoris, unspecified whether pechanga or transplanted heart (ICD-10 - I25.10) 07/01/2024 Diastolic dysfunctio n (ICD-10 - I51.89) 07/01/2024 JOLENE positive (ICD-10 - R76.8) 07/01/2024 Mild anemia (ICD-10 - D64.9) 07/01/2024 Non morbid obesity (ICD-10 - E66.9) 07/01/2024 Depression with anxi ety (ICD-10 - F41.8) 07/01/2024 BMI 33.0-33.9,adult (ICD-10 - Z68.33) Plan Of Treatment Next Appt Details Provider Name:Beto Wilson ry, 05/04/2025 09:45:00 AM, [address], [place], [place], [id number], Insurance Providers Payer Name Payer Address Payer Phone Subscriber Number Group Number Insured Name Patient Relationship to Insured Coverage Start Date Coverage End Date [employer] (MEDICARE) [address] [address] [place] [address] [phone] [id number] Seble Feliciano Self - patient is the insured MEDICARE PART B [address] [address] [place] [address] [id number] Braden Seble Self - patient is the insured Medications Administered Medication Instructions Date of Administration Dosage Notes Depo- Medrol 40 mg/ml 01/01/2015 1 mL Medical (General) History Medical History History ICD Code Coronary Artery Disease Myocardial Infarction, 2004 Hypertension Type 2 diabetes,2017 Depression Arthritis Cardiac Murmur Diastolic dysfunction Surgical History Surgery Date(Month/Year) Cholecystectomy 2005 Cardiac Catheterization 2003 Back 04/21/2015 Hospitalization History Reason Date(Month/Year) Fall- [facility] ER 01/12/2019
--- OUTSIDE RECORDS SUMMARY | 2024-11-05 09:34 | XMS_ITS | Clinical Summary ---
Author Organization [facility] Address [address] [place] [address] Care Team Providers Care Ortho Rn Name Role Phone Beto Gómez MD Primary Care Provider + [phone] Allergies No known active allergies Medications ARIPiprazole (Abilify) 5 MG tablet Take 1 tablet (5 mg) by mouth. 3 Active atorvastatin (Lipitor) 40 MG tablet Take 1 tablet (40 mg) by mouth 1 (one) time each day. 3 Active carvedilol (Coreg) 25 MG tablet Take 1 tablet (25 mg) by mouth 2 (two) times a day. 3 Active cefuroxime (Ceftin) 500 MG tablet TAKE 1 TABLET BY MOUTH EVERY 12 HOURS FOR 7 DAYS 3 Active DULoxetine (Cymbalta) [address] capsule Take 2 capsules (120 mg) by mouth 1 (one) time each day. 3 Active FeroSul 325 (65 Fe) MG tablet Take 1 tablet (325 mg) by mouth 2 (two) times a day. 3 Active furosemide (Lasix) 40 MG tablet Take 1 tablet (40 mg) by mouth 1 (one) time each day. 3 Active levoFLOXacin (Levaquin) 500 MG tablet Take 1 tablet (500 mg) by mouth 1 (one) time each day. 3 Active lisinopril 40 MG tablet Take 1 tablet (40 mg) by mouth. 3 Active magnesium oxide (Mag-Ox) 400 (240 Mg) MG tablet Take 2 tablets (800 mg) by mouth 1 (one) time each day. 3 Active metFORMIN XR (Glucophage-XR) 500 MG 24 hr tablet Take 2 tablets (1,000 mg) by mouth 2 (two) times a day. 3 Active nabumetone (Relafen) 750 MG tablet Take 2 tablets (1,500 mg) by mouth 1 (one) time each day. 3 Active oxybutynin XL (Ditropan-XL) 10 MG 24 hr tablet Take 1 tablet (10 mg) by mouth 1 (one) time each day. 2 Active budesonide-form oterol (Symbicort) 160-4.5 MCG/ACT inhalerIndicati ons:Other forms of dyspnea Inhale 2 puffs 2 (two) times a day. Rinse mouth with water after use to reduce aftertaste and incidence of candidiasis. Do not swallow. 1 g 11 3 Active potassium chloride ER (Micro-K) 10 MEQ ER capsule Take 1 capsule (10 mEq) by mouth 1 (one) time each day. 3 Active Active Problems Problem Noted Date Diagnosed Date Obesity (BMI 35.0-39.9 without comorbidity) 01/25 Encounters Date Type Department Care Team Description 09/19/2024 Orders Only [place] [id number] [place] [id number] Elina Herr Stage 3 chronic kidney disease, unspecified whether stage 3a or 3b CKD (CMS/HCC) (Primary Dx); Vitamin D insufficiency from Last 3 Months Immunizations Immunization Administration Dates Next Due Influenza, high-dose, quadrivalent 11/18,01/18/2022,01/13/2021,12/14,12/15/2019,01/17/2019,01/17/2019 ,01/08/2018,01/08/2018,01/10/2017,12/24 Influenza, seasonal, injectable 02/12/2015 Influenza, seasonal, injecta ble, preservative free 03/09/2016 Pneumococcal 20-robert Conj Vaccine 02/27/2022 Pneumococcal Conjugate PCV 13 01/10/2017 Pneumococcal Polysaccharide PPV23 01/17/2019 Family History Medical History Relation Name Comments Diabetes Brother Kidney disease Brother Heart disease Father Stroke Mother No Known Problems Sister Lung disease Neg Hx Rheumatologic disease Neg Hx Relation Name Status Comments Brother Alive Father Mother Sister Alive Social History Tobacco Use Types Packs/Day Years Used Date Smoking Tobacco: Former Cigarettes 2 31 1 966 - 1997 Passive Smoke Exposure: Past Smokeless Tobacco: Never Tobacco Cessation:Counseling Given: Not Answered PHQ-2 Answer Date Recorded Patient Health Questionnaire-2 Score 0 02/21/2023 PHQ-2A Answer Date Recorded Patient Health Questionnaire-2 Score 0 02/21/2023 Comments Unknown Sex and Gender Information Value Date Recorded Sex Assigned at Not on file Legal Sex Female 8:12 PM EDT Gender Identity Not on file Sexual Orientation Not on file Last Filed Vital Signs Vital Sign Reading Time Taken Comments Blood Pressure 97/65 02/21/2023 9:02 AM EST Pulse 80 02/21/2023 9:02 AM EST Temperature 36.3 C (97.3 F) 02/21/2023 9:02 AM EST Respiratory Rate 18 01/24/2023 1:07 PM EDT Oxygen Saturation 94% 02/21/2023 9:02 AM EST Inhaled Oxygen Concentration - - Weight 107 kg (234 lb 12.6 oz) 02/21/2023 9:02 A M EST Height 167.6 cm (5' 6 ) 02/21/2023 9:02 AM EST Body Mass Index 37.9 02/21/2023 9:02 AM EST Plan of Treatment Upcoming Encounters Date Type Department Care Team (Late st Contact Info) Description 11/12/2024 1:00 PM EDT Office Visit Professional [facility] [address] [facility], [address] [place] [address] Blade Correa MD [address] [place] [id number] Health Maintenance Due Date Last Done Comments [facility]-Bone Density Scan 1950 [facility]-Hepatitis C Screening 1950 [facility]-Medicare Annual Wellness (AWV) 1950 [facility]-/Child/Adol SDOH Screenings 1950 [facility]- SDOH Screenings 07/10/1969 [facility]-Adult SDOH Screenings 07/10/1969 [facility]-DTaP,Tdap,and Td Vaccines (1 - Tdap) 07/10/1970 CT Colonography 07/10/1996 Colonoscopy 07/10/1996 FIT-DNA 07/10/1996 FIT 07/10/1996 FOBT 07/10/1996 Sigmoidoscopy 07/10/1996 [facility]-Colorectal Cancer Screening 07/10/1996 [facility]-Breast Cancer Screening 07/10/2001 [facility]-Zoster Vaccines (1 of 2) 07/10/2001 [id number] Vaccine (5 - season) 2023 07/21/2021, 02/02/2021, 06/23/2020, Additional history exists [facility]-Depression Screening 02/22/2024 02/21/2023 [facility]-Influenza Vaccine (#1) 11/24/202411/18, 01/18/2022, 01/13/2021, Additional history exists [facility]-RSV Vaccine: 60+ Years or (1 - 1-dose 75+ series) 07/10/2026 [facility]-Pneumococcal Vaccine: 50+ Years Completed 02/27/2022, 01/17/2019, 01/10/2017 [facility]-Obesity Intervention Completed 02/21/2023, 03/2022 HPV Vaccines Aged Out No longer eligi ble based on patient's age to complete this topic [facility]-HIB Vaccines Aged Out No longer e ligible based on patient's age to complete this topic [facility]-Hepatitis A Vaccines Aged Out No longer eligible based on patient's age to complete this topic [facility]-IPV Vaccines Aged Out No longer e ligible based on patient's age to complete this topic [facility]-Rotavirus Vaccines Aged Out No lo nger eligible based on patient's age to complete this topic Insurance MEDICARE Care Teams Ortho Rn Relationship Specialty Start Date End Date Beto Gómez MD [address] [facility] [address] [place] [address] PCP - General 03/26/20
[2024-11-05 10:07] LABS: Hematocrit 42.8 % (37.0-47.0); Hemoglobin 12.7 g/dL (12.2-16.2); Immature Granulocytes % 0.3 %; Mean Corpuscular HGB Conc 29.7 g/dL (31.8-35.4); Mean Corpuscular Hemoglobin 24.5 pg (27.0-31.2); Mean Corpuscular Volume 82.5 fl (81-99); Nucleated Red Blood Cells % 0 %; Platelet Count 288 K/mm3 (142-424); Red Blood Count 5.19 M/mm3 (4.20-5.40); Red Cell Distribution Width-SD 42.7 fL; White Blood Count 7.9 K/mm3 (4.8-10.8)
[2024-11-05 10:13] LABS: Bilirubin,Urine Negative (Negative); Color,Urine YELLOW (Yellow); Glucose,Urine (UA) Negative (Negative); Ketones,Urine Negative (Negative); Leukocyte Esterase,Urine 3+ (Negative); PH,Urine 6.0 (5.0-8.5); Protein,Urine Negative (Negative); Specific Gravity, Urine 1.010 (1.005-1.030); Urobilinogen,Urine 0.2 EU/dl (0.2)
[2024-11-05 10:53] LABS: Albumin Level 3.6 g/dl (3.5-5.0); Anion Gap 8.1 mEq/L (5-15); Blood Urea Nitrogen 14 mg/dl (7-17); Calcium 8.8 mg/dl (8.4-10.2); Carbon Dioxide 29 mmol/L (22.0-30.0); Chloride 103 mmol/L (98-107); Creatinine,Serum 1.10 mg/dl (0.52-1.04); Estimated Glomerular Filt Rate 49 ml/min (>60); GFR (African American) 59 ML/MIN (>60); Glucose 81 mg/dl (74-100); Phosphorous 4.5 mg/dl (2.5-4.5); Potassium 4.1 mmoL/L (3.5-5.1); Sodium 136 mmol/L (136-145)
[2024-11-05 11:12] LABS: 25-OH Vitamin D, Total 36.2 ng/mL (30-100)
[2024-11-05 11:59] LABS: Bacteria,Urine 1+ /lpf; RBC,Urine Occasional #/hpf (0-3); WBC,Urine 50-100 #/hpf (0-3)
== END 2024-11-05 23:59 | disposition home or self-care (01) ==
LOC: LAB 09:26
PROVIDERS: PCP Family Medicine; Visit Provider Student in an Organized Health Care Education/Training Program
DX: N18.30 Chronic kidney disease, stage 3 unspecified (principal)
CPT/HCPCS: 36415; 80069; 81001; 82306; 82570; 83970; 84156; 85025; 87086; 87088